=== PATIENT | female | born 1955 | race Caucasian/White ===

== ENCOUNTER 2022-11-02 13:38 | Outpatient (AMB) | payer OTHER, SELFPAY ==
--- NOTE | 2022-11-02 14:14 | AM.OFFWIN_ITS ---
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 she is not currently taking any medications for BP. 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 Patient gives history of diabetes hypertension and hypothyroid state. She is recently moved from [facility] a year ago. Has not established her care with a primary care doctor here. Appointment given to her is in May. She noticed her blood pressure to be reasonably elevated. Associated with headaches. Brings her blood pressure log to review. Visited on of the walk-in and was started on metformin. No blood work has been done. [facility] Social History Patient Tobacco Use Status: Never used Tobacco Physical Exam Vital Signs: Last Vital Signs Pulse 90 11/02/22 14:18 BP 158/80 H 11/02/22 14:18 Pulse Ox 98 11/02/22 14:18 Oxygen Delivery Method Room Air 11/02/22 14:18 Const General: cooperative and healthy appearing Nutritional Appearance: well nourished Orientation/consciousness: patient oriented x3 Limitations: no limitations HEENT Head: Yes normal to inspection Eyes General: appearance normal, both eyes and all related structures Neck Neck: Yes normal visual inspection Chest Chest palpation & inspection: normal palpation of entire chest wall Resp Effort & Inspection: normal respiratory effort Neuro General: patient oriented x3 Assessment & Plan Assessment & Plan (1) Essential hypertension: Code(s): I10 - Essential (primary) hypertension Plan: Lisinopril 10 mg a day has been started. Patient was advised to keep maintaining a blood pressure log. I encouraged her to see her doctor in [place]. Patient declined and wants to be seen by a provider here. Earliest appointment available is in May 2023. (2) Diabetes mellitus: Code(s): E11.9 - Type 2 diabetes mellitus without complications Plan: Blood work has been ordered. Will call with results. Orders: Orders Basic Metabolic Panel Today E11.9 - Type 2 diabetes mellitus without complications, I10 - Essential (primary) hypertension Complete Blood Count no Diff Today E11.9 - Type 2 diabetes mellitus without complications, I10 - Essential (primary) hypertension Lipid Panel Today E11.9 - Type 2 diabetes mellitus without complications, I10 - Essential (primary) hypertension Liver Panel Today E11.9 - Type 2 diabetes mellitus without complications, I10 - Essential (primary) hypertension Thyroid Stimulating Hormone Today E11.9 - Type 2 diabetes mellitus without complications, I10 - Essential (primary) hypertension Hemoglobin A1c Today E11.9 - Type 2 diabetes mellitus without complications Medications: New lisinopril 10 mg PO DAILY 90 tabs 1RF Coding Level of Care Code Est Pt Level 4 (58438) Diagnoses Essential hypertension I10 Diabetes mellitus E11.9
[2022-11-02 14:18] VITALS: BP 158/80; PULSE 90; O2SAT 98
== END 2022-11-02 16:31 | disposition home or self-care (01) ==
PROVIDERS: PCP Internal Medicine; Visit Provider Internal Medicine
DX: I10 Essential (primary) hypertension (principal); E11.9 Type 2 diabetes mellitus without complications
CPT/HCPCS: 99214

== ENCOUNTER 2022-11-03 07:35 | Outpatient (REF) | payer OTHER, SELFPAY ==
[2022-11-03 11:49] LABS: Hematocrit 34.2 % (37.0-47.0); Hemoglobin 11.2 g/dl (12.0-16.0); Mean Corpuscular HGB Conc 32.7 g/dl (31.0-35.0); Mean Corpuscular Hemoglobin 29.2 pg (27.0-33.0); Mean Corpuscular Volume 89.3 fL (80.0-98.0); Mean Platelet Volume 10.2 fL (9.4-12.3); Platelet Count 292 X10*3/uL (160-400); Red Blood Count 3.83 X10*6/uL (4.20-5.50); Red Cell Distribution Width 12.5 % (11.0-16.0); White Blood Count 7.1 X10*3/uL (4.8-10.8)
[2022-11-03 12:01] LABS: Estimated Average Glucose 151 mg/dL; Hemoglobin A1c % 6.9 % (<6.0)
[2022-11-03 12:27] LABS: Alanine Aminotransferase 9 U/L (0-31); Alkaline Phosphatase 58 U/L (39-117); Anion Gap 10 (12-20); Aspartate Amino Transferase 13 U/L (5-31); Bilirubin Direct 0.3 mg/dL (0.0-0.5); Blood Urea Nitrogen 11 mg/dL (9-16); Calcium 9.7 mg/dL (8.4-10.2); Carbon Dioxide 28 mmol/L (22-29); Chloride 107 mmol/L (96-108); Cholesterol 186 mg/dL (<200); Estimated Glomerular Filt Rate > 60; Glucose Random 108 mg/dL (60-115); HDL Cholesterol 44 mg/dL (>40); LDL Cholesterol Calculated 113 mg/dL (<100); Potassium 4.2 mmol/L (3.3-5.1); Sodium 141 mmol/L (135-145); Total Protein 7.5 g/dL (6.5-8.0); Triglycerides 149 mg/dL (<150)
[2022-11-03 12:29] LABS: Thyroid Stimulating Hormone 3.67 uIU/mL (0.32-4.0)
== END 2022-11-03 07:36 | disposition home or self-care (01) ==
LOC: HO.HMGCLDS 07:35
PROVIDERS: PCP Internal Medicine; Visit Provider Internal Medicine
DX: E11.9 Type 2 diabetes mellitus without complications (principal); I10 Essential (primary) hypertension
CPT/HCPCS: 36415; 80048; 80061; 80076; 83036; 84443; 85027

== ENCOUNTER 2022-12-22 09:13 | Outpatient (AMB) | payer OTHER, SELFPAY ==
--- NOTE | 2022-12-22 09:18 | A.OFFPC_ITS ---
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: Yes Metal Model Builder Name: aMteus ([id number]) Accompanied by: Daughter Allergies No Known Allergies Allergy (Verified 12/22/22 09:43) Medication List - Last Reconciled 12/22/22 by Libby Zhao CNP levothyroxine 25 mcg PO DAILY lisinopril 10 mg PO DAILY metformin 500 mg PO DAILY metformin 1,000 mg PO DAILY Tobacco use date assessed: 12/22/22 Fall risk assessment: No Falls in past year Last assessed Fall Risk: 12/22/22 Dental Screening Dental Screen Date: 12/22/22 Did you have a dental visit in the last 12 months?: No Did you have a dental problem in the last 6 months where you did not have access to dental care?: No Was dental information given to patient?: Yes HPI HPI Comments 2 History of Present Illness Details 67-year-old Portuguese-speaking female pres ents to establish care. Patient has PMH significant for diabetes, hypertension, hypothyroidism, GERD, h/o Ellsworth esophagus, and arthritis to both hands and upper back with intermittent pain. She is on levothyroxine, lisinopril, and metformin. She admits to taking her medications as prescribed. She notes that she she has an old prescription for Meloxicam 15mg, from [facility], which she takes daily as needed for hands and upper back pain. She requests a refill of the medication as it is almost out. She was evaluated at the [facility] walk-in clinic in October. Routine labs and A1c were ordered. Her A1c was 6.9% She recently moved from [facility] to [facility] a year ago and this her first time establishing care with a primary care provider in the [facility]. She denies acute symptoms at this time. [facility] Medical History (Updated 12/22/22 @ 10:25 by Libby Zhao CNP) Arthritis Arteriosclerosis Ellsworth esophagus Acid reflux Thyroid disease High blood pressure Surgical History (Updated 12/22/22 @ 09:53 by Trish Burton MA) No pertinent past surgical history Family History (Updated 12/22/22 @ 09:52 by Trish Burton MA) Mother Diabetes Father Asthma Family/Other Diabetes Thyroid disease Social History Housing: Apartment Patient Tobacco Use Status: Former Tobacco user e-Cigarette/Vaping Use: Never Used service: No Current occupational status: unemployed Cognitive needs: No Hearing needs: No Vision needs: No Questionnaire PHQ-9 Over the last 2 weeks, how often have you been bothered by any of the following problems? 1. Little interest or pleasure in doing things: not at all 2. Feeling down, depressed, or hopeless: not at all 3. Trouble falling or staying asleep, or sleeping too much: not at all 4. Feeling tired or having little energy: not at all 5. Poor appetite or overeating: not at all 6. Feeling bad about yourself - or that you are a failure or have let yourself or your family down: not at all 7. Trouble concentrating on things, such as reading the newspaper or watching television: not at all 8. Moving or speaking so slowly that other people could have noticed. Or the opposite - being so fidgety or restless that you have been moving around a lot more than usual: not at all 9. Thoughts that you would be better off or of hurting yourself in some way: not at all Total score: 0 Depression Screening Interpretation: Negative Depression Screening Done: Yes Source: Developed by Drs. Dean Rojo, Conchita Coleman, Tyrone Colin and colleagues, with an educational colt from [employer]. Thrive Questionnaire Date Thrive assessed: 12/22/22 I am a: Patient What is your living situation today?: I have a steady place to live Within the past 12 months, did the food you bought not last and you didn't have the money to get more?: Never true Within the past 12 months, did you worry whether your food would run out before you got money to buy more?: Never true Do you have trouble paying for medicines?: Yes Do you have trouble getting transportation to medical appointments?: No Do you have trouble paying your heating and electricity bill?: No Do you have trouble taking care of your child, family member or friend?: No Do you have trouble with day-to-day activities such as bathing, preparing meals, shopping, managing finances, etc.?: No Are you currently unemployed and looking for a job?: Yes Are you interested in more education?: Yes Please select the resources that you would like help with: Paying for medicine, Job search/training and Education Currently or been in a relationship where the following occur: no concerns reported AUDIT C Alcohol Use Questionnaire (AUDIT-C) 1. How often do you have a drink containing alcohol?: Never 3. How often do you have six or more drinks on one occasion?: Never Total Score: 0 SANTANA-7 AMB Questionnaire SANTANA-7 Date SANTANA - 7 assessed: 12/22/22 Feeling nervous, anxious, or on edge: 0 = Not at all Not being able to stop or control worryin = Not at all Worrying too much about different things: 0 = Not at all Trouble relaxin = Not at all Being so restless that it is hard to sit still: 0 = Not at all Becoming easily annoyed or irritable: 1 = Several days Feeling afraid as if something awful might happen: 0 = Not at all Total SANTANA-7 score (0-4 normal; 5-9 mild; 10-14 moderate; 15-21 severe): 1 Source: Developed by Drs. Dean Rojo, Conchita Coleman, Tyrone Colin and colleagues, with an educational colt from [employer]. Review of Systems Const Details: Denies chills, Denies fatigue, Denies fever(s), Denies headache(s) and Denies weakness HEENT Denies change in vision, Denies dizziness, Denies headache(s), Denies hearing loss, Denies nasal congestion, Denies sinus pain, Denies sinus pressure and Denies sore throat Card Denies chest pain, Denies lightheadedness, Denies dyspnea and Denies other (palpitations) Resp Denies cough, Denies dyspnea and Denies wheezing GI Denies abdominal pain, Denies melena, Denies hematochezia, Denies change in bowel habits, Denies dyspepsia and Denies nausea Denies hematuria and Denies dysuria Musc Denies abnormal gait, Denies myalgias, Denies arthralgias, Denies numbness and Denies tingling Skin/Breast Denies rash, Denies unusual bruising and Denies wounds Neuro Denies abnormal gait, Denies dizziness, Denies headache(s), Denies memory loss, Denies numbness, Denies Sensory deficit (Neuro), Denies tingling and Denies weakness Psych Denies anxiety, Denies depression and Denies memory loss Endo Denies cold intolerance, Denies fatigue, Denies heat intolerance, Denies polydipsia and Denies polyuria Hung/Lymph Denies easy bleeding and Denies easy bruising Aller/Immun Denies wheezing Physical exam (Primary Care) Vital Signs: Last Vital Signs Temp 97.6 F 12/22/22 09:23 Pulse 74 12/22/22 09:23 Resp 12 12/22/22 09:23 BP 134/80 12/22/22 09:23 Pulse Ox 99 12/22/22 09:23 Oxygen Delivery Method Room Air 12/22/22 09:23 BMI result Body Mass Index 27.3 Tobacco/Smoking Status: Tobacco use Status Tobacco use date assessed 12/22/22 12/22/22 09:37 Patient Tobacco Use Status Former Tobacco user 12/22/22 09:37 e-Cigarette/Vaping Use Never Used 12/22/22 09:37 PHQ-9: PHQ-9 Score PHQ-9: Total score 0 12/22/22 14:44 Depression Screening Interpretation: Negative Thrive Assessment: Date of Thrive Assessment Date Thrive assessed 12/22/22 12/22/22 09:37 Currently or been in a relationship where the following occur: no concerns reported Const Other: General: no acute distress, well developed, alert and awake Nutritional Appearance: well nourished Orientation/consciousness: patient oriented x3 HENMT Head: Yes normocephalic and Yes atraumatic Ears: hearing grossly normal bilaterally and TM's normal bilaterally General nose exam: Normal external nose present and Normal nares present Mouth: Normal oral and palatal mucosa present and moist mucous membranes Teeth and gingiva: dentition normal Throat: Yes oropharynx normal Eyes Pupils: Equal, round and reactive pupils present and Pupil accommodation reflex normal EOM: EOMs intact bilaterally Neck Neck: Yes normal visual inspection, Yes no lymphadenopathy and Yes trachea midline Thyroid: Thyroid normal Carotids: no bruits Lymphatic: no lymphadenopathy noted Chest Chest palpation & inspection: normal inspection of the chest Resp Effort & Inspection: normal respiratory effort Auscultation: clear to auscultation bilaterally Cardio Rate: regular rate Rhythm: regular rhythm Heart sounds: S1 normal heart sound present, S2 normal heart sound present, no gallops, no murmurs and no rubs Bruits: no abdominal aortic bruits and no carotid bruits GI Palpation (GI): No Abdominal aortic bruit present, Soft to palpation, nontender, No hepatosplenomegaly present and No Rebound tenderness present Auscultation: normal bowel sounds General: Yes no CVA tenderness Back/Spine/Pelvis Back: no CVA tenderness Cervical Spine: cervical ROM normal and No Cervical spine tenderness Thoracic/Lumbar Spine: thoraco-lumbar ROM normal, No pain with thoraco-lumbar ROM, No thoracic spinal tenderness and No lumbar spinal tenderness Skin General: warm and dry. Normal skin color. Normal skin turgor Lesions: no lesions Rashes: no rashes Trauma: no lacerations or abrasions Wounds: no wounds Nails: normal Neuro General: patient oriented x3, gait normal and CN's II-XI intact bilaterally Cranial nerves: Yes Equal, round and reactive pupils present Cognition (Neuro): normal cognition Gait exam (Neuro): Normal gait present Motor exam (neuro): 5/5 motor strength present throughout Sensory Exam: No Sensory deficit (Neuro) Deep tendon reflexes (DTR's): Right patellar reflex intensity grade: 2+ and Left patellar reflex intensity grade: 2+ Extrem General: Yes normal to inspection, No edema and No calf tenderness Psych Appearance: grossly normal Affect: normal affect Attitude: cooperative Thought process: Normal thought process present Assessment and Plan Assessment & Plan (1) Normal physical examination, routine: Code(s): Z00.00 - Encounter for general adult medical examination without abnormal findings Plan: No significant physical restrictions or limitations noted She had routine blood work done in October. Lab results 1 unremarkable except for slightly elevated LDL, 113. Will also check urinalysis Advised to limit foods high in saturated fat and avoid foods high in trans fat Advised to follow-up in 1 month for diabetes, hypertension, and health maintenance Return sooner with symptoms or concerns Verbalized understanding and agreed with treatment plan Interpretation by a professional seasonal recruiter via electronic tablet. (2) Diabetes mellitus: Code(s): E11.9 - Type 2 diabetes mellitus without complications Plan: A1c was 6.9% in October, within goal of less than 7.0% Continue to take metformin as prescribed ADA diet and routine exercise encouraged Follow-up in 1 month or return sooner with symptoms or concerns Verbalized understanding and agreed with treatment plan. (3) Essential hypertension: Code(s): I10 - Essential (primary) hypertension Plan: Blood pressure is 134/80, slightly above goal of 130/80 Continue current treatment regimen Low-sodium diet encouraged Follow-up in a month Verbalized understanding and agreed with treatment plan. (4) Hypothyroidism: Code(s): E03.9 - Hypothyroidism, unspecified Plan: Recent TSH was normal Continue with current treatment regimen Will continue to monitor Verbalized understanding and agreed with treatment plan. (5) Acid reflux: Code(s): K21.9 - Gastro-esophageal reflux disease without esophagitis Plan: Reports history of acid reflux Omeprazole ordered. Take as prescribed Return with symptoms or concerns Verbalized understanding and agreed with treatment plan. (6) Arthritis: Code(s): M19.90 - Unspecified osteoarthritis, unspecified site Plan: Reports intermittent pain to hands and upper back. No acute symptoms at this time Tylenol ordered. Take as prescribed Return with new or worsening symptoms Verbalized understanding and agreed with treatment plan. 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 Orders: Orders UA CC w/rflx Micro + Cult 12/22/22 Z00.00 - Encounter for general adult medical examination without abnormal findings Medications: New acetaminophen ER (Tylenol 8 Hour) 650 mg PO Q8H PRN 60 tabs 2RF pain omeprazole 20 mg PO DAILY 90 days 90 caps 1RF Coding Level of Care Code New Pt Level 4 (04417) New Pt Prev Care >65yr (39001) Diagnoses Normal physical examination, routine Z00.00 Diabetes mellitus E11.9 Essential hypertension I10 Hypothyroidism E03.9 Acid reflux K21.9 Arthritis M19.90 Ellsworth esophagus K22.70
[2022-12-22 09:23] VITALS: BP 134/80; PULSE 74; RESP 12; TEMP 36.4; O2SAT 99; BMI 27.3
== END 2022-12-22 10:21 | disposition home or self-care (01) ==
PROVIDERS: PCP Internal Medicine; Visit Provider Nurse Practitioner Family
DX: Z00.00 Encounter for general adult medical examination without abnormal findings (principal); E11.9 Type 2 diabetes mellitus without complications; I10 Essential (primary) hypertension; E03.9 Hypothyroidism, unspecified; K21.9 Gastro-esophageal reflux disease without esophagitis; M19.90 Unspecified osteoarthritis, unspecified site; K22.70 Barrett's esophagus without dysplasia
CPT/HCPCS: 99204; 99387

== ENCOUNTER 2023-01-19 10:47 | Outpatient (AMB) | payer OTHER, SELFPAY ==
[2023-01-19 10:50] VITALS: BP 132/60; PULSE 82; RESP 13; O2SAT 96; BMI 27.8
--- NOTE | 2023-01-19 10:50 | MHC.PC.OV ---
Vital Signs 01/19/23 10:50 Height 5 ft 1 in Weight 147 lb BMI 27.8 BP 132/60 Blood Pressure Location Rt brachial Position Sitting Respiration 13 Pulse 82 Pulse Source Pulse Oximeter Pulse Oximetry (%) 96 Oxygen Delivery Method Room Air Intake Visit Reasons: 1 month DM, HTN, health maintenance Intake Note: Patient is here to follow up on her diabetic care, hypertension and health maintenance. Patient's last A1C was completed on 11/03/22 with a result of 6.9%. Patient has an R ear pain for ~2 months. Patient reports there is an echo in her ear and sometimes feel blocked with water. Patient is requesting a [facility] referral for barretts esophagus. Per patient's insurance she will need Levothyroxine prescribed in tablets not capsules. Patient reports she needs refills for all of her medications. Certified Medical Transcriptionist Required: Yes Certified Medical Transcriptionist Name: [id number] Accompanied by: Daughter Allergies No Known Allergies Allergy (Verified 01/19/23 11:18) Medication List - Last Reconciled 01/19/23 by Libby Zhao CNP acetaminophen ER (Tylenol 8 Hour) 650 mg PO Q8H PRN levothyroxine 25 mcg PO DAILY 90 days lisinopril 10 mg PO DAILY metformin 500 mg PO DAILY 90 days metformin 1,000 mg PO DAILY 90 days omeprazole 20 mg PO DAILY 90 days Tobacco use date assessed: 12/22/22 HPI HPI Comments History of Present Illness Details 67-year-old female Frisian-speaking, accompanied by her daughter, presents for diabetes, hypertension and health maintenance follow-up. Her last office visit was almost a month ago. A complete physical exam was performed. She admits to taking her medications as prescribed. Her last A1c was 6.9 in 11/03/2022. Her next A1c is due in 2 weeks. She reports pain in her right ear which has been ongoing for the past 2 months. She notes that the ear feels clogged and produces an echo sound with chewing. She notes that she had normal dental evaluation by the dentist a week ago. She denies fever, chills, body aches, fatigue, or weakness. She notes that she had an eye exam with Dr. Caballero, Ophthalmology, at [facility] in [place], yesterday and that she was informed she had cataract in both eyes that requires surgery. She requests a referral to Gastroenterology for history of Ellsworth esophagus. No acute symptoms at this time. She notes that her last colonoscopy was more than 4 years ago (less than 10 years ago) in [facility]: normal She notes that her last pap smear was over 5 years ago in [facility]: normal She states that her last mammogram was over 5 years ago in [facility]: normal She notes that she has never had a bone density scan She states that she has never had the PNA vaccines She states she has never had the shingrix vaccines [facility] Medical History (Updated 01/19/23 @ 12:11 by Libby Zhao CNP) Arthritis Arteriosclerosis Ellsworth esophagus Acid reflux Thyroid disease High blood pressure Surgical History (Updated 12/22/22 @ 09:53 by Trish Burton MA) No pertinent past surgical history Family History (Updated 12/22/22 @ 09:52 by Trish Burton MA) Mother Diabetes Father Asthma Family/Other Diabetes Thyroid disease Social History Housing: Apartment Patient Tobacco Use Status: Former Tobacco user e-Cigarette/Vaping Use: Never Used service: No Current occupational status: unemployed Cognitive needs: No Hearing needs: No Vision needs: No Questionnaire Thrive Questionnaire Date Thrive assessed: 12/22/22 SANTANA-7 AMB Questionnaire SANTANA-7 Date SANTANA - 7 assessed: 12/22/22 Source: Developed by Drs. Dean Rojo, Conchita Coleman, Tyrone Colin and colleagues, with an educational colt from [employer]. Review of Systems Const Details: Const Denies chills, Denies fatigue, Denies fever(s), Denies headache(s) and Denies weakness ENT Reports as per HPI Card Denies chest pain, Denies lightheadedness, Denies dyspnea and Denies other (Palpitations) Resp Denies cough, Denies dyspnea, Denies wheezing and Denies other ( shortness of breath) GI Denies abdominal pain, Denies melena, Denies hematochezia, Denies change in bowel habits, Denies dyspepsia and Denies nausea Denies hematuria and Denies dysuria Musc Denies abnormal gait, Denies myalgias, Denies arthralgias, Denies numbness and Denies tingling Skin/Breast Denies rash, Denies unusual bruising and Denies wounds Neuro Denies abnormal gait, Denies dizziness, Denies headache(s), Denies memory loss, Denies numbness, Denies Sensory deficit (Neuro), Denies tingling and Denies weakness Psych Denies anxiety, Denies depression, Denies memory loss Endo Denies cold intolerance, Denies fatigue, Denies heat intolerance, Denies polydipsia and Denies polyuria Aller/Immun Denies wheezing Physical exam (Primary Care) Vital Signs: Last Vital Signs Pulse 82 01/19/23 10:50 Resp 13 01/19/23 10:50 BP 132/60 01/19/23 10:50 Pulse Ox 96 01/19/23 10:50 Oxygen Delivery Method Room Air 01/19/23 10:50 BMI result Body Mass Index 27.8 Tobacco/Smoking Status: Tobacco use Status Tobacco use date assessed 12/22/22 01/19/23 10:50 Patient Tobacco Use Status Former Tobacco user 01/19/23 10:50 e-Cigarette/Vaping Use Never Used 01/19/23 10:50 Thrive Assessment: Date of Thrive Assessment Date Thrive assessed 12/22/22 01/19/23 10:50 Const Other: General: no acute distress and well developed Nutritional Appearance: well nourished Orientation/consciousness: patient oriented x3 HENMT Head: Yes normocephalic and Yes atraumatic Eyes General: appearance normal, both eyes and all related structures Pupils: Equal, round and reactive pupils present EOM: EOMs intact bilaterally Resp Effort & Inspection: normal respiratory effort Auscultation: clear to auscultation bilaterally Cardio Rate: regular rate Rhythm: regular rhythm Heart sounds: S1 normal heart sound present, S2 normal heart sound present, no gallops, no murmurs and no rubs GI Palpation (GI): No Abdominal aortic bruit present, Soft to palpation, nontender, No hepatosplenomegaly present and No Rebound tenderness present Auscultation: normal bowel sounds General: Yes no CVA tenderness Back/Spine/Pelvis Back: no CVA tenderness Cervical Spine: cervical ROM normal and No Cervical spine tenderness Thoracic/Lumbar Spine: thoraco-lumbar ROM normal, No pain with thoraco-lumbar ROM, No thoracic spinal tenderness and No lumbar spinal tenderness Extrem General: Yes normal to inspection, No edema and No calf tenderness Skin General: warm and dry. Normal skin color. Normal skin turgor Lesions: no lesions Rashes: no rashes Trauma: no lacerations or abrasions Wounds: no wounds Nails: normal Neuro General: patient oriented x3, gait normal and no focal neuro deficit Cranial nerves: Yes Equal, round and reactive pupils present Cognition (Neuro): normal cognition Gait exam (Neuro): Normal gait present Sensory Exam: No Sensory deficit (Neuro) Psych Appearance: grossly normal Affect: normal affect Attitude: cooperative Thought process: Normal thought process present Assessment and Plan Assessment & Plan (1) Diabetes mellitus: Code(s): E11.9 - Type 2 diabetes mellitus without complications Plan: Her last A1c was 6.9 in 11/03/2022. Her next A1c is due in 2 weeks. Continue with current treatment regimen Will check A1c at her next visit in 6 weeks She notes she was evaluated by Ophthalmology yesterday and was diagnosed with cataract of both eyes the requires surgery. The MA called the ophthalmology office and was informed that only cataract exam was performed and that the patient was referred by her music specialist who may have performed diabetic retinal exam. Will obtain records and review. Will make referral for diabetic retinal exam if not performed. Will also check urine microalbumin/creatinine ratio Return with symptoms or concerns Verbalized understanding and agreed with treatment plan. (2) Essential hypertension: Code(s): I10 - Essential (primary) hypertension Plan: Blood pressure is 132/60, slightly above goal of less than 130/80 Continue with current treatment regimen Low-sodium diet encouraged Will continue to monitor Follow-up in 6 weeks Verbalized understanding and agreed with treatment plan. (3) Elevated LDL cholesterol level: Code(s): E78.00 - Pure hypercholesterolemia, unspecified Plan: Recent LDL in October was 113, above goal of less than 70 Her 10 year risk of ASCVD is 30.3% Rosuvastatin ordered. Take as prescribed Advised to limit foods high in saturated fat and avoid foods high in trans fat Routine exercise encouraged Will recheck lipid levels in 6 weeks. Advised to fast for 10-12 hours (may drink water only) and get blood work done 2-3 days before her next visit. Follow-up in 6 weeks Verbalized understanding and agreed with treatment plan. 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 Record not available Mammogram ordered (6) Colon cancer screening: Code(s): Z12.11 - Encounter for screening for malignant neoplasm of colon Plan: She notes that her last colonoscopy was more than 4 years ago (less than 10 years ago) in [facility]: normal. Record not available Referred to [facility] Gastroenterology for colonoscopy (7) Age-related osteoporosis without current pathological fracture: Code(s): M81.0 - Age-related osteoporosis without current pathological fracture Plan: She notes that she has never had a bone density scan DEXA scan ordered (8) Pap smear for cervical cancer screening: Code(s): Z12.4 - Encounter for screening for malignant neoplasm of cervix Plan: She notes that her last pap smear was over 5 years ago in [facility]: normal. Record not available Referred to [facility] missing persons investigator (9) Vaccine counseling: Code(s): Z71.85 - Encounter for immunization safety counseling Plan: She notes she has never had the Shingrix and pneumonia vaccines Instructed on the importance of vaccination and encouraged to get vaccinated against shingles and pneumonia. She may request these vaccines from the pharmacy Verbalized understanding and agreed with plan. (10) Mild anemia: Code(s): D64.9 - Anemia, unspecified Plan: Recent RBC, and H&H were slightly low, 3.83 and 11.2/34.2 respectively. No evidence of iron, B12, or folate deficiency Will repeat CBC and make changes to her care plan if warranted Verbalized understanding and agreed with the plan. Orders: Orders Lipid Panel 6 Weeks E78.00 - Pure hypercholesterolemia, unspecified XR DEXA axial skeleton Today M81.0 - Age-related osteoporosis without current pathological fracture Microalbumin, Random (w Creat) 6 Weeks E11.9 - Type 2 diabetes mellitus without complications MM screening mammo BI Today Z12.31 - Encounter for screening mammogram for malignant neoplasm of breast Complete Blood Count no Diff Today D64.9 - Anemia, unspecified Referrals Gastroenterology Referral K22.70 - Ellsworth's esophagus without dysplasia, Z12.11 - Encounter for screening for malignant neoplasm of colon [employer] Referral Z12.4 - Encounter for screening for malignant neoplasm of cervix Medications: New levothyroxine 25 mcg PO DAILY 90 tabs 1RF 90 days rosuvastatin 20 mg PO DAILY 30 tabs 3RF 30 days Refilled lisinopril 10 mg PO DAILY 90 tabs 1RF Discontinued levothyroxine Discontinued Reason: Doctor's Order 25 mcg PO DAILY 90 days 90 caps 1RF Coding Level of Care Code Est Pt Level 4 (72329) Diagnoses Diabetes mellitus E11.9 Essential hypertension I10 Elevated LDL cholesterol level E78.00 Ellsworth esophagus K22.70 Breast cancer screening by mammogram Z12.31 Colon cancer screening Z12.11 Age-related osteoporosis without current pathological fracture M81.0 Pap smear for cervical cancer screening Z12.4 Vaccine counseling Z71.85 Mild anemia D64.9
== END 2023-01-19 11:58 | disposition home or self-care (01) ==
PROVIDERS: PCP Nurse Practitioner Family; Visit Provider Nurse Practitioner Family
DX: E11.9 Type 2 diabetes mellitus without complications (principal); I10 Essential (primary) hypertension; E78.00 Pure hypercholesterolemia, unspecified; K22.70 Barrett's esophagus without dysplasia; Z12.31 Encounter for screening mammogram for malignant neoplasm of breast; Z12.11 Encounter for screening for malignant neoplasm of colon; M81.0 Age-related osteoporosis without current pathological fracture; Z12.4 Encounter for screening for malignant neoplasm of cervix; Z71.85 Encounter for immunization safety counseling; D64.9 Anemia, unspecified
CPT/HCPCS: 99214

== ENCOUNTER 2023-02-20 09:05 | Outpatient (REF) | payer OTHER, SELFPAY ==
[2023-02-20 11:41] LABS: Hematocrit 34.5 % (37.0-47.0); Hemoglobin 11.3 g/dl (12.0-16.0); Mean Corpuscular HGB Conc 32.8 g/dl (31.0-35.0); Mean Corpuscular Volume 88.7 fL (80.0-98.0); Platelet Count 257 X10*3/uL (160-400); Red Blood Count 3.89 X10*6/uL (4.20-5.50); Red Cell Distribution Width 12.3 % (11.0-16.0)
[2023-02-20 12:25] LABS: Cholesterol 128 mg/dL (<200); HDL Cholesterol 43 mg/dL (>40); LDL Cholesterol Calculated 59 mg/dL (<100); Triglycerides 132 mg/dL (<150)
[2023-02-20 12:48] LABS: Microalbum/Creatinine Ratio Ur 12.2 ug/mg cr (<30)
== END 2023-02-20 09:06 | disposition home or self-care (01) ==
LOC: HO.WFDLDS 09:05
PROVIDERS: Visit Provider Nurse Practitioner Family
DX: D64.9 Anemia, unspecified (principal); E11.9 Type 2 diabetes mellitus without complications; E78.00 Pure hypercholesterolemia, unspecified
CPT/HCPCS: 36415; 80061; 82043; 82570; 85027

== ENCOUNTER 2023-02-23 11:03 | Outpatient (AMB) | payer OTHER, SELFPAY ==
[2023-02-23 11:08] VITALS: BP 134/78; PULSE 80; RESP 13; TEMP 36.5; O2SAT 99; BMI 27.8
--- NOTE | 2023-02-23 11:08 | MHC.PC.OV ---
Vital Signs 02/23/23 11:08 02/23/23 11:58 Height 5 ft 1 in Weight 147 lb 2 oz BMI 27.8 BP 134/78 130/64 Blood Pressure Location Rt brachial Lt brachial Position Sitting Sitting Respiration 13 Pulse 80 Pulse Source Pulse Oximeter Temp 97.7 F Temp Source Temporal Artery Scan Pulse Oximetry (%) 99 Oxygen Delivery Method Room Air Intake Visit Reasons: Follow up DM, HLD Intake Note: Patient is having problems with right ear. Patient states that she has an itch and when listening it feels like its an echoe. Director Digital Catalogue Required: Yes Director Digital Catalogue Name: Elmo ([id number]) Accompanied by: Daughter Allergies No Known Allergies Allergy (Verified 02/23/23 11:49) Medication List - Last Reconciled 02/23/23 by Libby Zhao CNP acetaminophen ER (Tylenol 8 Hour) 650 mg PO Q8H PRN levothyroxine 25 mcg PO DAILY 90 days lisinopril 10 mg PO DAILY metformin 500 mg PO DAILY 90 days metformin 1,000 mg PO DAILY 90 days omeprazole 20 mg PO DAILY 90 days rosuvastatin 20 mg PO DAILY 30 days Tobacco use date assessed: 12/22/22 Fall risk assessment: No Falls in past year Last assessed Fall Risk: 02/23/23 Dental Screening Dental Screen Date: 02/23/23 Did you have a dental visit in the last 12 months?: Yes Did you have a dental problem in the last 6 months where you did not have access to dental care?: No Was dental information given to patient?: Patient has dentist HPI HPI Comments History of Present Illness Details 68 y/o Serbian speaking female, accompanied by her daughter, presents for diabetes and elevated LDL follow-up She admits to taking her medications as prescribed without adverse reactions She reports echoing in her right ear with every time she chews. She also reports persistent itching in the right ear. She notes that her symptoms have been ongoing for the past 3 months [facility] Medical History Arthritis Arteriosclerosis Ellsworth esophagus Acid reflux Thyroid disease High blood pressure Surgical History No pertinent past surgical history Family History Mother Diabetes Father Asthma Family/Other Diabetes Thyroid disease Social History Housing: Apartment Patient Tobacco Use Status: Former Tobacco user e-Cigarette/Vaping Use: Never Used service: No Current occupational status: unemployed Cognitive needs: No Hearing needs: No Vision needs: No Questionnaire Thrive Questionnaire Date Thrive assessed: 12/22/22 SANTANA-7 AMB Questionnaire SANTANA-7 Date SANTANA - 7 assessed: 12/22/22 Source: Developed by Drs. Dean Rojo, Conchita Coleman, Tyrone Colin and colleagues, with an educational colt from [employer]. Review of Systems Const Details: Const Denies chills, Denies fatigue, Denies fever(s), Denies headache(s) and Denies weakness ENT Reports as per HPI Card Denies chest pain, Denies lightheadedness, Denies dyspnea and Denies other (Palpitations) Resp Denies cough, Denies dyspnea, Denies wheezing and Denies other ( shortness of breath) GI Denies abdominal pain, Denies melena, Denies hematochezia, Denies change in bowel habits, Denies dyspepsia and Denies nausea Denies hematuria and Denies dysuria Musc Denies abnormal gait, Denies myalgias, Denies arthralgias, Denies numbness and Denies tingling Skin/Breast Denies rash, Denies unusual bruising and Denies wounds Neuro Denies abnormal gait, Denies dizziness, Denies headache(s), Denies memory loss, Denies numbness, Denies Sensory deficit (Neuro), Denies tingling and Denies weakness Psych Denies anxiety, Denies depression, Denies memory loss Endo Denies cold intolerance, Denies fatigue, Denies heat intolerance, Denies polydipsia and Denies polyuria Aller/Immun Denies wheezing Physical exam (Primary Care) Vital Signs: Last Vital Signs Temp 97.7 F 02/23/23 11:08 Pulse 80 02/23/23 11:08 Resp 13 02/23/23 11:08 BP 134/78 02/23/23 11:08 Pulse Ox 99 02/23/23 11:08 Oxygen Delivery Method Room Air 02/23/23 11:08 BMI result Body Mass Index 27.8 Tobacco/Smoking Status: Tobacco use Status Tobacco use date assessed 12/22/22 02/23/23 11:09 Patient Tobacco Use Status Former Tobacco user 02/23/23 11:09 e-Cigarette/Vaping Use Never Used 02/23/23 11:09 Thrive Assessment: Date of Thrive Assessment Date Thrive assessed 12/22/22 02/23/23 11:09 Const Other: General: no acute distress and well developed Nutritional Appearance: well nourished Orientation/consciousness: patient oriented x3 HENMT Head is normocephalic Bilateral ear canal and TM are normal Nasal turbinates and oropharynx are pink and moist Sinuses are nontender with palpation No auricular or cervical lymphadenopathy Eyes General: appearance normal, both eyes and all related structures Pupils: Equal, round and reactive pupils present EOM: EOMs intact bilaterally Resp Effort & Inspection: normal respiratory effort Auscultation: clear to auscultation bilaterally Cardio Rate: regular rate Rhythm: regular rhythm Heart sounds: S1 normal heart sound present, S2 normal heart sound present, no gallops, no murmurs and no rubs GI Palpation (GI): No Abdominal aortic bruit present, Soft to palpation, nontender, No hepatosplenomegaly present and No Rebound tenderness present Auscultation: normal bowel sounds General: Yes no CVA tenderness Back/Spine/Pelvis Back: no CVA tenderness Cervical Spine: cervical ROM normal and No Cervical spine tenderness Thoracic/Lumbar Spine: thoraco-lumbar ROM normal, No pain with thoraco-lumbar ROM, No thoracic spinal tenderness and No lumbar spinal tenderness Extrem General: Yes normal to inspection, No edema and No calf tenderness Skin General: warm and dry. Normal skin color. Normal skin turgor Neuro General: patient oriented x3, gait normal and no focal neuro deficit Cranial nerves: Yes Equal, round and reactive pupils present Cognition (Neuro): normal cognition Gait exam (Neuro): Normal gait present Sensory Exam: No Sensory deficit (Neuro) Psych Appearance: grossly normal Affect: normal affect Attitude: cooperative Thought process: Normal thought process present Results AMB Hemoglobin A1c AMB Hemoglobin A1c 7.4 % Last Edit by Trish Burton MA on 02/23/23 11:30 Results Reviewed Results Reviewed: Laboratory Last Values Hgb A1c (Clinic) 7.4 % (4.0-6.0) H 02/23/23 11:29 Assessment and Plan Assessment & Plan (1) Diabetes mellitus: Code(s): E11.9 - Type 2 diabetes mellitus without complications Plan: A1c today is 7.4%, above goal of less than 7.0%. Previous A1c was 6.9% Recent LDL 3 days ago is 59, within goal of less than 70 Recent urine microalbumin/creatinine ratio is normal, 12.2 Last eye exam was last month Metformin increased to 1000 mg twice daily. Take as prescribed ADA diet and routine exercise encouraged Will recheck A1c in 3 months Follow-up in 1 month for hypertension or return sooner with symptoms or concerns Verbalized understanding and agreed with treatment plan Interpretation by professional order entry representative via electronic tablet (2) Essential hypertension: Code(s): I10 - Essential (primary) hypertension Plan: Resting blood pressure is 130/64, slightly above goal of less than 130/80 Will increase lisinopril to 20 mg daily. Take as prescribed Low-sodium diet encouraged Advised to monitor home blood pressure readings, reports BP consistently above 130/80, SBP below 100, DBP below 60, dizziness, or lightheadedness She has an appointment for cataract surgery preop clearance next week. Will monitor BP at the time Follow-up in 1 month Verbalized understanding and agreed with treatment plan (3) Tinnitus, right ear: Code(s): H93.11 - Tinnitus, right ear Plan: Reports 3 months of persistent right ear itching and echoing while chewing Normal right ear canal and TM. No cerumen or overt signs of injury or infection Itching may be related to allergies Zyrtec ordered. Take as prescribed Referred to ENT specialist Return with worsening or new symptoms Verbalized understanding and agreed with treatment plan (4) Elevated LDL cholesterol level: Code(s): E78.00 - Pure hypercholesterolemia, unspecified Plan: Recent LDL 3 days ago is 59, within goal of less than 70 Continue current treatment regimen Advised to limit foods high in saturated fat and avoid foods high trans fat Routine exercise encouraged Will continue to monitor Verbalized understanding and agreed with treatment plan Orders: Orders AMB Hemoglobin A1c Today Z13.9 - Encounter for screening, unspecified Referrals Ear/Nose/Throat Referral H93.11 - Tinnitus, right ear Medications: New lisinopril 20 mg PO DAILY 90 days 90 tabs 1RF cetirizine (All Day Allergy (cetirizine)) 10 mg PO DAILY 30 days 30 tabs 3RF metformin 1,000 mg PO BID 90 days 180 tabs 1RF Discontinued lisinopril Discontinued Reason: Doctor's Order 10 mg PO DAILY 90 tabs 1RF metformin Discontinued Reason: Doctor's Order 500 mg PO DAILY 90 days 90 tabs 1RF metformin Discontinued Reason: Doctor's Order 1,000 mg PO DAILY 90 days 90 tabs 1RF Coding Level of Care Code Est Pt Level 3 (18647) Diagnoses Diabetes mellitus E11.9 Essential hypertension I10 Tinnitus, right ear H93.11 Elevated LDL cholesterol level E78.00
[2023-02-23 11:58] VITALS: BP 130/64
== END 2023-02-23 12:25 | disposition home or self-care (01) ==
PROVIDERS: PCP Nurse Practitioner Family; Visit Provider Nurse Practitioner Family
DX: E11.9 Type 2 diabetes mellitus without complications (principal); I10 Essential (primary) hypertension; H93.11 Tinnitus, right ear; E78.00 Pure hypercholesterolemia, unspecified
CPT/HCPCS: 83036; 99213

== ENCOUNTER 2023-02-27 15:50 | Outpatient (AMB) | payer OTHER, SELFPAY ==
[2023-02-27 15:58] VITALS: BP 134/70; PULSE 61; RESP 13; TEMP 36.4; O2SAT 97; BMI 27.8
--- NOTE | 2023-02-27 15:58 | A.OFFPC_ITS ---
Vital Signs 02/27/23 15:58 Height 5 ft 1 in Weight 147 lb 2 oz BMI 27.8 BP 134/70 Blood Pressure Location Rt brachial Position Sitting Respiration 13 Pulse 61 Pulse Source Pulse Oximeter Temp 97.6 F Temp Source Temporal Artery Scan Pulse Oximetry (%) 97 Oxygen Delivery Method Room Air Intake Visit Reasons: Cataract/03-28 left eye/04-11 right eye Intake Note: Patient would like pre-op notes faxed over to Dr. Caballero @ [facility] on [address] Computer Technology Teacher Required: Yes Computer Technology Teacher Name: Onel ([id number]) Accompanied by: Daughter Allergies No Known Allergies Allergy (Verified 02/27/23 16:21) Medication List - Last Reconciled 02/27/23 by Libby Zhao CNP acetaminophen ER (Tylenol 8 Hour) 650 mg PO Q8H PRN cetirizine (All Day Allergy (cetirizine)) 10 mg PO DAILY 30 days levothyroxine 25 mcg PO DAILY 90 days lisinopril 20 mg PO DAILY 90 days metformin 1,000 mg PO BID 90 days omeprazole 20 mg PO DAILY 90 days rosuvastatin 20 mg PO DAILY 30 days Tobacco use date assessed: 12/22/22 Fall risk assessment: No Falls in past year Last assessed Fall Risk: 02/27/23 Dental Screening Dental Screen Date: 02/27/23 Did you have a dental visit in the last 12 months?: Yes Did you have a dental problem in the last 6 months where you did not have access to dental care?: No Was dental information given to patient?: Patient has dentist HPI HPI Comments History of Present Illness Details 68 y/o Armenian speaking female, accompan ied by her daughter, presents for preop clearance for cataract surgery She has cataract surgery of the left eye schedule for 03/28/2023 and of the right eye scheduled for 04/11/[address] 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 Dean Rojo, Conchita Coleman, Tyrone Colin and colleagues, with an educational colt from [employer]. Review of Systems Const Details: Const Denies chills, Denies fatigue, Denies fever(s), Denies headache(s) and Denies weakness ENT Denies dizziness and Denies headache(s) Card Denies chest pain, Denies lightheadedness, Denies dyspnea and Denies other (Pa lpitations) Resp Denies cough, Denies dyspnea, Denies wheezing and Denies other ( shortness of breath) GI Denies abdominal pain, Denies melena, Denies hematochezia, Denies change in bowel habits, Denies dyspepsia and Denies nausea Denies hematuria and Denies dysuria Musc Denies abnormal gait, Denies myalgias, Denies arthralgias, Denies numbness and Denies tingling Skin/Breast Denies rash, Denies unusual bruising and Denies wounds Neuro Denies abnormal gait, Denies dizziness, Denies headache(s), Denies memory loss, Denies numbness, Denies Sensory deficit (Neuro), Denies tingling and Denies weakness Psych Denies anxiety, Denies depression, Denies memory loss Endo Denies cold intolerance, Denies fatigue, Denies heat intolerance, Denies polydipsia and Denies polyuria Aller/Immun Denies wheezing Physical exam (Primary Care) Tobacco/Smoking Status: Tobacco use Status Tobacco use date assessed 12/22/22 02/23/23 11:09 Patient Tobacco Use Status Former Tobacco user 02/23/23 11:09 e-Cigarette/Vaping Use Never Used 02/23/23 11:09 Thrive Assessment: Date of Thrive Assessment Date Thrive assessed 12/22/22 02/23/23 11:09 Const Other: General: no acute distress and well developed Nutritional Appearance: well nourished Orientation/consciousness: patient oriented x3 HENMT Head: Yes normocephalic and Yes atraumatic Eyes General: appearance normal, both eyes and all related structures Pupils: Equal, round and reactive pupils present EOM: EOMs intact bilaterally Resp Effort & Inspection: normal respiratory effort Auscultation: clear to auscultation bilaterally Cardio Rate: regular rate Rhythm: regular rhythm Heart sounds: S1 normal heart sound present, S2 normal heart sound present, no gallops, no murmurs and no rubs GI Palpation (GI): No Abdominal aortic bruit present, Soft to palpation, nontender, No hepatosplenomegaly present and No Rebound tenderness present Auscultation: normal bowel sounds General: Yes no CVA tenderness Back/Spine/Pelvis Back: no CVA tenderness Cervical Spine: cervical ROM normal and No Cervical spine tenderness Thoracic/Lumbar Spine: thoraco-lumbar ROM normal, No pain with thoraco-lumbar ROM, No thoracic spinal tenderness and No lumbar spinal tenderness Extrem General: Yes normal to inspection, No edema and No calf tenderness Skin General: warm and dry. Normal skin color. Normal skin turgor Neuro General: patient oriented x3, gait normal and no focal neuro deficit Cranial nerves: Yes Equal, round and reactive pupils present Cognition (Neuro): normal cognition Gait exam (Neuro): Normal gait present Sensory Exam: No Sensory deficit (Neuro) Psych Appearance: grossly normal Affect: normal affect Attitude: cooperative Thought process: Normal thought process present Assessment and Plan Assessment & Plan (1) Preoperative clearance: Code(s): Z01.818 - Encounter for other preprocedural examination Plan: No acute symptoms at this time Physical exam is benign No focal neuro deficit Recent lab results are benign Lung sounds clear bilaterally. Heart regular rate and rhythm Patient is medically stable at this time and has no contraindications for cataract surgery Interpretation by a professional sole layer hand via electronic tablet (2) Mild anemia: Code(s): D64.9 - Anemia, unspecified Plan: Recent blood work is unrevealing except for slightly low RBC and H&H, 3.89 and 11.3/34.5 respectively Will check iron profile, ferritin level, B12/folate. Advised to get blood work done at her earliest convenience Will make changes as needed Verbalized understanding and agreed with the plan Orders: Orders Ferritin Today D64.9 - Anemia, unspecified, Z01.818 - Encounter for other preprocedural examination IRON PROFILE Today D64.9 - Anemia, unspecified Vitamin B12 and Folate Today D64.9 - Anemia, unspecified Coding Level of Care Code Est Pt Level 3 (97100) Diagnoses Preoperative clearance Z01.818 Mild anemia D64.9
== END 2023-02-27 16:31 | disposition home or self-care (01) ==
PROVIDERS: PCP Nurse Practitioner Family; Visit Provider Nurse Practitioner Family
DX: Z01.818 Encounter for other preprocedural examination (principal); D64.9 Anemia, unspecified
CPT/HCPCS: 99213

== ENCOUNTER 2023-03-21 10:03 | Outpatient (REF) | payer OTHER, SELFPAY ==
--- NOTE | ~2023-03-21 | MM_ITS ---
EXAMINATION: BONE DENSITOMETRY CLINICAL INDICATION: Age-related osteoporosis without current pathological fracture. COMPARISON: This is the patient's baseline examination. TECHNIQUE: Using a [employer] DXA System (software version: 13.1) manufactured by [employer], dual-energy x-ray absorptiometry was performed of the lumbar spine and left hip. The images are of good technical quality. Summary results are attached. FINDINGS: LEFT FEMUR, NECK: BMD 0.784 g/cm2, Z-score -0.3, T-score -1.8, osteopenia. LEFT FEMUR, TOTAL: BMD 0.812 g/cm2, Z-score -0.3, T-score -1.5, osteopenia. AP SPINE L1-L4: BMD 0.993 g/cm2, Z-score 0.0, T-score -1.6, osteopenia. IDENTIFIED RISK FACTORS: Menopause. HISTORY OF FRACTURE: None listed. MEDICATIONS: None listed. MM/XR DEXA axial skeleton IMPRESSION: 1. DIAGNOSIS: Osteopenia based on the lowest T-score value of -1.8 in the femoral neck applying World Health Organization criteria. 2. 10-YEAR FRACTURE RISK PREDICTION, FRAX: Major osteoporotic fracture (clinical spine, forearm, hip or shoulder) 5.8%. Hip fracture 0.9%. 3. Treatment Recommendations: NOF guidelines recommend consideration for treatment in postmenopausal women and men age 50 and older presenting with the following: -A hip or vertebral (clinical or morphometric) fracture. -T-score less than or equal to -2.5 at the femoral neck or spine after appropriate evaluation to exclude secondary causes. -Low bone mass at the hip or spine and a 10-year fracture probability by FRAX of greater than or equal to 3% for hip fracture or greater than or equal to 20% for major osteoporotic fracture based on the [place] adapted WHO algorithm. 4. Other Recommendations: All treatment decisions require clinical judgment and consideration of individual patient factors, including patient preferences, comorbidities, previous drug use, risk factors not captured in the FRAX model (e.g. frailty, falls, vitamin D deficiency, increased bone turnover, interval significant decline in bone density) and possible under or overestimation of fracture risk by FRAX. Additional medical evaluation for secondary cause of low bone mineral density may be appropriate. FUTURE SCAN RECOMMENDATION: People with diagnosed cases of osteoporosis or at high risk for fracture should have regular bone mineral density tests. For patients eligible for Medicare, routine testing is allowed once every 2 years. The testing frequency can be increased to one year for patients who have rapidly progressing disease, those who are receiving or discontinuing medical therapy to restore bone mass, or have additional risk factors.
--- NOTE | ~2023-03-21 | MM_ITS ---
EXAMINATION: MM SCREENING DIGITAL BREAST TOMOSYNTHESIS, BILATERAL CLINICAL INFORMATION: Screening. Asymptomatic. COMPARISON: Mammography: There are no prior studies for comparison. TECHNIQUE: Digital breast tomosynthesis is performed in both the craniocaudal and mediolateral oblique views along with computer-aided detection (CAD). Synthesized 2D images are generated from the tomosynthesis. FINDINGS: There are scattered areas of fibroglandular density (ACR BI-RADS breast composition Category b). There are no significant masses, abnormal calcifications, or other abnormalities. MM/MM tomosynthesis screening BI IMPRESSION: No mammographic evidence of malignancy. ASSESSMENT: BI-RADS BI-RADS 1 - Negative RECOMMENDATION: Routine annual mammography screening. 1 year F/U This examination should not preclude the clinical evaluation of a suspicious palpable abnormality. This patient's information was entered into a reminder system with a target due date for their next mammogram.
== END 2023-03-21 10:04 | disposition home or self-care (01) ==
LOC: HO.MAMMO 10:03
PROVIDERS: Visit Provider Nurse Practitioner Family
DX: Z12.31 Encounter for screening mammogram for malignant neoplasm of breast (principal); Z13.820 Encounter for screening for osteoporosis; M81.0 Age-related osteoporosis without current pathological fracture; Z78.0 Asymptomatic menopausal state
CPT/HCPCS: 77063; 77067; 77080

== ENCOUNTER → 2023-03-21 11:00 | Outpatient (BNV) | payer OTHER, SELFPAY | PROVIDERS: Visit Provider Radiology Diagnostic Radiology | DX: Z12.31 Encounter for screening mammogram for malignant neoplasm of breast (principal) | CPT/HCPCS: 77063; 77067 ==

== ENCOUNTER 2023-03-22 09:38 | Outpatient (REF) | payer OTHER, SELFPAY ==
[2023-03-22 12:20] LABS: Iron 74 mcg/dL (30-160); Percent Iron Saturation 26 % (15-50); Total Iron Binding Capacity 284 mcg/dL (228-428); Unsaturated Iron Binding 210 ug/dL
[2023-03-22 12:22] LABS: Ferritin 114 ng/mL (10-250)
[2023-03-22 12:27] LABS: Folate 13.5 ng/mL (> or = 4.0); Vitamin B12 611 pg/mL (200-900)
== END 2023-03-22 09:39 | disposition home or self-care (01) ==
LOC: HO.WFDLDS 09:38
PROVIDERS: Visit Provider Nurse Practitioner Family
DX: Z01.818 Encounter for other preprocedural examination (principal); D64.9 Anemia, unspecified
CPT/HCPCS: 36415; 82607; 82728; 82746; 83540

== ENCOUNTER 2023-03-31 14:13 | Outpatient (AMB) | payer OTHER, SELFPAY ==
--- NOTE | 2023-03-31 14:40 | A.OFFPC_ITS ---
Vital Signs 03/31/23 14:41 Height 5 ft 1 in Weight 149 lb 8 oz BMI 28.2 BP 124/68 Blood Pressure Location Rt brachial Position Sitting Respiration 13 Pulse 69 Pulse Source Pulse Oximeter Temp 97.6 F Temp Source Temporal Artery Scan Pulse Oximetry (%) 99 Oxygen Delivery Method Room Air Intake Visit Reasons: f/u HTN Intake Note: Patient would like referral for ENT changed to [facility] instead. Hardening Machine Operator Helper Required: Yes Hardening Machine Operator Helper Name: Nelson ([id number]) Accompanied by: Daughter Allergies No Known Allergies Allergy (Verified 03/31/23 15:09) Medication List - Last Reconciled 03/31/23 by Libby Zhao CNP acetaminophen ER (Tylenol 8 Hour) 650 mg PO Q8H PRN cetirizine (All Day Allergy (cetirizine)) 10 mg PO DAILY 30 days levothyroxine 25 mcg PO DAILY 90 days lisinopril 20 mg PO DAILY 90 days metformin 1,000 mg PO BID 90 days omeprazole 20 mg PO DAILY 90 days rosuvastatin 20 mg PO DAILY 30 days Tobacco use date assessed: 03/31/23 Fall risk assessment: No Falls in past year Last assessed Fall Risk: 03/31/23 Dental Screening Dental Screen Date: 03/31/23 Did you have a dental visit in the last 12 months?: Yes Did you have a dental problem in the last 6 months where you did not have access to dental care?: No Was dental information given to patient?: Patient has dentist HPI HPI Comments History of Present Illness Details 68 y/o Yoruba speaking female, accompan ied by her daughter, presents for hypertension follow-up She admits to taking her medications as prescribed without adverse reactions She was referred to [facility] for persistent right itching and echoing with chewing. 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 Acid reflux Thyroid disease High blood pressure Surgical History (Updated 03/31/23 @ 14:56 by Trish Burton MA) H/O cataract removal with insertion of prosthetic lens No pertinent past surgical history Family History Mother Diabetes Father Asthma Family/Other Diabetes Thyroid disease Social History Housing: Apartment Patient Tobacco Use Status: Former Tobacco user e-Cigarette/Vaping Use: Never Used service: No Current occupational status: unemployed Cognitive needs: No Hearing needs: Yes Vision needs: No Questionnaire Thrive Questionnaire Date Thrive assessed: 12/22/22 SANTANA-7 AMB Questionnaire SANTANA-7 Date SANTANA - 7 assessed: 12/22/22 Source: Developed by Drs. Dean Rojo, Conchita Coleman, Tyrone Colin and colleagues, with an educational colt from [employer]. Review of Systems Const Details: Const Denies chills, Denies fatigue, Denies fever(s), Denies headache(s) and Denies weakness ENT Denies dizziness and Denies headache(s) Card Denies chest pain, Denies lightheadedness, Denies dyspnea and Denies other (Palpitations) Resp Denies cough, Denies dyspnea, Denies wheezing and Denies other ( shortness of breath) GI Denies abdominal pain, Denies melena, Denies hematochezia, Denies change in bowel habits, Denies dyspepsia and Denies nausea Denies hematuria and Denies dysuria Musc Denies abnormal gait, Denies myalgias, Denies arthralgias, Denies numbness and Denies tingling Skin/Breast Denies rash, Denies unusual bruising and Denies wounds Neuro Denies abnormal gait, Denies dizziness, Denies headache(s), Denies memory loss, Denies numbness, Denies Sensory deficit (Neuro), Denies tingling and Denies weakness Psych Denies anxiety, Denies depression, Denies memory loss Endo Denies cold intolerance, Denies fatigue, Denies heat intolerance, Denies polydipsia and Denies polyuria Aller/Immun Denies wheezing Physical exam (Primary Care) Vital Signs: Last Vital Signs Temp 97.6 F 03/31/23 14:41 Pulse 69 03/31/23 14:41 Resp 13 03/31/23 14:41 BP 124/68 03/31/23 14:41 Pulse Ox 99 03/31/23 14:41 Oxygen Delivery Method Room Air 03/31/23 14:41 BMI result Body Mass Index 28.2 Tobacco/Smoking Status: Tobacco use Status Tobacco use date assessed 03/31/23 03/31/23 14:53 Patient Tobacco Use Status Former Tobacco user 03/31/23 14:53 e-Cigarette/Vaping Use Never Used 03/31/23 14:53 Thrive Assessment: Date of Thrive Assessment Date Thrive assessed 12/22/22 03/31/23 14:53 Const Other: General: no acute distress and well developed Nutritional Appearance: well nourished Orientation/consciousness: patient oriented x3 HENMT Head: Yes normocephalic and Yes atraumatic Eyes General: appearance normal, both eyes and all related structures Pupils: Equal, round and reactive pupils present EOM: EOMs intact bilaterally Resp Effort & Inspection: normal respiratory effort Auscultation: clear to auscultation bilaterally Cardio Rate: regular rate Rhythm: regular rhythm Heart sounds: S1 normal heart sound present, S2 normal heart sound present, no gallops, no murmurs and no rubs GI Palpation (GI): No Abdominal aortic bruit present, Soft to palpation, nontender, No hepatosplenomegaly present and No Rebound tenderness present Auscultation: normal bowel sounds General: Yes no CVA tenderness Back/Spine/Pelvis Back: no CVA tenderness Cervical Spine: cervical ROM normal and No Cervical spine tenderness Thoracic/Lumbar Spine: thoraco-lumbar ROM normal, No pain with thoraco-lumbar ROM, No thoracic spinal tenderness and No lumbar spinal tenderness Extrem General: Yes normal to inspection, No edema and No calf tenderness Skin General: warm and dry. Normal skin color. Normal skin turgor Lesions: no lesions Rashes: no rashes Trauma: no lacerations or abrasions Wounds: no wounds Nails: normal Neuro General: patient oriented x3, gait normal and no focal neuro deficit Cranial nerves: Yes Equal, round and reactive pupils present Cognition (Neuro): normal cognition Gait exam (Neuro): Normal gait present Sensory Exam: No Sensory deficit (Neuro) Psych Appearance: grossly normal Affect: normal affect Attitude: cooperative Thought process: Normal thought process present Assessment and Plan Assessment & Plan (1) Essential hypertension: Code(s): I10 - Essential (primary) hypertension Plan: Blood pressure is 124/68, within goal of less than 130/70 Continue current tx Low sodium diet encouraged Follow up in 2 months for DM and HTN or return sooner with symptoms or concerns Verbalized understanding and agreed with the plan Referred to [facility] as requested Interpretation by a professional educational sign language interpreter via electronic tablet (2) Osteopenia after menopause: Code(s): M85.80 - Other specified disorders of bone density and structure, unspecified site; Z78.0 - Asymptomatic menopausal state Plan: Recent labs and DEXA scan reviewed with the patient Normal iron profile, vitamin B12, and folate levels DEXA scan revealed osteopenia Vitamin D3 2000 units ordered. Take as prescribed Will do a bone density scan every 2 years Verbalized understanding and agreed with treatment plan Medications: New cholecalciferol (vitamin D3) 50 mcg PO DAILY 90 tabs 4RF 90 days Changed From rosuvastatin 20 mg PO DAILY 30 days 30 tabs 3RF To rosuvastatin 20 mg PO DAILY 90 days 90 tabs 1RF Coding Level of Care Code Est Pt Level 4 (70048) Diagnoses Essential hypertension I10 Osteopenia after menopause M85.80; Z78.0
[2023-03-31 14:41] VITALS: BP 124/68; PULSE 69; RESP 13; TEMP 36.4; O2SAT 99; BMI 28.2
== END 2023-03-31 15:25 | disposition home or self-care (01) ==
PROVIDERS: PCP Nurse Practitioner Family; Visit Provider Nurse Practitioner Family
DX: I10 Essential (primary) hypertension (principal); M85.80 Other specified disorders of bone density and structure, unspecified site; Z78.0 Asymptomatic menopausal state
CPT/HCPCS: 99214

== ENCOUNTER 2023-04-05 13:51 | Outpatient (AMB) | payer OTHER, SELFPAY ==
--- NOTE | 2023-04-05 13:56 | MHC.OFFVIS ---
Intake Vital Signs 04/05/23 14:01 Height 5 ft 1 in Weight 147 lb 11.355 oz BMI 27.9 BP 138/62 Blood Pressure Location Lt brachial Position Sitting Pulse 89 Intake Visit Reasons: hx of Barretts esophagus/ colo screen Intake Note: Priyanka presents in the office as a new patient for hx of barretts. CC: She states that she is having lots of acid. She has hx of barretts esophagus. This is just a routine check up. Dielectric Tester Required: Yes Dielectric Tester Name: [id number] key Allergies No Known Allergies Allergy (Verified 04/05/23 14:05) HPI hx of Barretts esophagus/ colo screen HPI Details 68 year old? female with past medical history of osteopenia, hyperlipidemia, hypothyroidism, arthritis, diabetes, hypertension is here today for pre colonoscopy screening.? Patient was sent to us by her PCP.?? Patient reports that she had a colonoscopy and upper endoscopy in the past. Was diagnosed with Ellsworth's esophagus and was on treatment. Just recently patient was seen by her PCP and was placed on omeprazole for acid reflux. Patient reports occasional dyspepsia without dysphagia or odynophagia. Patient feels like the omeprazole has not been very helpful. In the past patient states that she was on Nexium and was doing well. Denies history of difficulty with sedation or anesthesia in the past.? Negative for history of sleep apnea.? Denies any history of cardiac, renal, pulmonary, or hepatic disease.?? No history of infectious? diseases like hepatitis A, B, C, HIV or tuberculosis.? Patient is not on any anticoagulation therapy. [facility] Medical History (Updated 04/05/23 @ 14:44 by Phuong Penning[facility]) Arthritis Arteriosclerosis Ellsworth esophagus Acid reflux Thyroid disease High blood pressure Surgical History (Updated 04/05/23 @ 14:05 by NARCISO Cassidy) Hx of colonoscopy History of esophagogastroduodenoscopy (EGD) H/O cataract removal with insertion of prosthetic lens No pertinent past surgical history Family History Mother Diabetes Father Asthma Family/Other Diabetes Thyroid disease Social History Housing: Apartment Patient Tobacco Use Status: Former Tobacco user e-Cigarette/Vaping Use: Never Used service: No Current occupational status: unemployed Cognitive needs: No Hearing needs: Yes Vision needs: No Review of Systems Const Denies weight gain and Denies weight loss ENT Reports no additional complaints, Denies dysphagia and Denies odynophagia Card Reports no additional complaints Resp Reports no additional complaints GI Denies abdominal pain, Denies belching, Denies melena, Denies bloating, Denies change in bowel habits, Denies dysphagia, Denies excessive flatus, Reports dyspepsia, Reports heartburn, Denies diarrhea, Denies loose stools, Denies nausea, Denies odynophagia and Denies vomiting Reports no additional complaints Musc Reports no additional complaints Neuro Reports no additional complaints Psych Reports no additional complaints Endo Reports no additional complaints Physical Exam Vital Signs: Last Vital Signs Pulse 89 04/05/23 14:01 BP 138/62 04/05/23 14:01 BMI result Body Mass Index 27.9 Const General: healthy appearing, no acute distress and well developed Nutritional Appearance: well nourished Orientation/consciousness: patient oriented x3 Resp Effort & Inspection: normal respiratory effort, able to speak in complete sentences, no tracheal deviation and symmetric chest movement Auscultation: clear to auscultation bilaterally Cardio Rate: regular rate GI Inspection: Yes normal to inspection and No distended Palpation (GI): Soft to palpation, not firm, nontender and No hepatosplenomegaly present Auscultation: normal bowel sounds General: Yes no CVA tenderness Back/Spine/Pelvis Back: no CVA tenderness Skin General skin exam: elasticity normal, turgor normal and dry skin Neuro General: patient oriented x3 Psych Appearance: grossly normal Mental Status: mental status grossly normal Assessment & Plan Assessment & Plan (1) Colon cancer screening: Code(s): Z12.11 - Encounter for screening for malignant neoplasm of colon (2) Ellsworth esophagus: Code(s): K22.70 - Ellsworth's esophagus without dysplasia Qualifiers: Ellsworth's esophagus type: without dysplasia Qualified Code(s): K22.70 - Ellsworth's esophagus without dysplasia (3) Acid reflux: Code(s): K21.9 - Gastro-esophageal reflux disease without esophagitis Qualifiers: Esophagitis presence: esophagitis presence not specified Qualified Code(s): K21.9 - Gastro-esophageal reflux disease without esophagitis Plan Patient denies any cardiac or respiratory symptoms.? Patient reports acid reflux despite taking omeprazole. Will change omeprazole to Nexium. Patient states that she took Nexium in the past and did well. Discussed with patient avoiding dietary triggers and late night snacking. Staying upright for minimum 3 hours after meals discussed with patient. Patient will be sent for upper endoscopy to rule out Ellsworth's, esophagitis, gastritis, duodenitis, gastric or peptic ulcers, H pylori. Denies any issues with anesthesia in the past.? Denies any history of sleep apnea.? No history infectious diseases in the past or present.? Not on any anticoagulation therapy.? ? Patient denies melena, hematochezia, unintentional weight loss or ribbon like stools.? Discussed at length the pre-procedure,? prep, diet & medications as well as what to expect prior, during and after the procedure.?? Stressed the importance of good bowel prep. ?Recommended the use of Vaseline or Calmoseptine OTC & baby wipes with bowel movements to promote comfort.? ?Patient verbalizes understanding and agrees to plan of care.? She was given the opportunity to ask questions and all questions answered.? We will see her after the procedure.? Medications: New esomeprazole magnesium (Nexium) 40 mg PO DAILY 30 caps 5RF K21.9 - Gastro-esophageal reflux disease without esophagitis bisacodyl (Dulcolax (bisacodyl)) take 4 tabs at noon the day before your colonoscopy 20 mg (4 x 5 mg) PO ONCE 1 day 4 tabs 0RF Z12.11 - Encounter for screening for malignant neoplasm of colon polyethylene glycol 3350 (Miralax) As directed by gastroenterology department at [facility] 238 grams PO ONCE 238 grams 0RF Z12.11 - Encounter for screening for malignant neoplasm of colon Discontinued omeprazole Discontinued Reason: Doctor's Order 20 mg PO DAILY 90 days 90 caps 1RF Coding Level of Care Code New Pt Level 3 (62800) Diagnoses Colon cancer screening Z12.11 Ellsworth's esophagus without dysplasia K22.70 Ellsworth's esophagus type: without dysplasia Gastroesophageal reflux disease, unspecified whether esophagitis present K21.9 Esophagitis presence: esophagitis presence not specified Time Spent (min) 40 Comment 30 minutes patient and additional 10 minutes spent reviewing her records
[2023-04-05 14:01] VITALS: BP 138/62; PULSE 89; BMI 27.9
== END 2023-04-05 14:39 | disposition home or self-care (01) ==
PROVIDERS: PCP Nurse Practitioner Family; Visit Provider Nurse Practitioner Family
DX: Z12.11 Encounter for screening for malignant neoplasm of colon (principal); K22.70 Barrett's esophagus without dysplasia; K21.9 Gastro-esophageal reflux disease without esophagitis; Z01.818 Encounter for other preprocedural examination
CPT/HCPCS: 99203

== ENCOUNTER → 2023-04-05 13:51 | Outpatient (BNVA) | payer OTHER, SELFPAY | PROVIDERS: PCP Nurse Practitioner Family; Visit Provider Nurse Practitioner Family | DX: Z12.11 Encounter for screening for malignant neoplasm of colon (principal); K22.70 Barrett's esophagus without dysplasia; K21.9 Gastro-esophageal reflux disease without esophagitis | CPT/HCPCS: 99202 ==

== ENCOUNTER 2023-04-06 10:48 | Outpatient (REF) | payer OTHER, SELFPAY ==
[2023-04-14 06:33] LABS: HPV mRNA E6/E7 rflx Not Detected (Not Detected)
== END 2023-04-06 10:49 | disposition home or self-care (01) ==
LOC: HO.LNP 10:48
PROVIDERS: PCP Nurse Practitioner Family; Visit Provider Advanced Practice Midwife
DX: Z01.419 Encounter for gynecological examination (general) (routine) without abnormal findings (principal); Z11.51 Encounter for screening for human papillomavirus (HPV)
CPT/HCPCS: 87624; 88142; 99397

== ENCOUNTER 2023-04-06 10:48 | Outpatient (AMB) | payer OTHER, SELFPAY ==
--- NOTE | 2023-04-06 10:50 | A.OFFVIS_ITS ---
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 She is present with her daughter, Ra. She is doing well with no concerns. Attempting to eat a healthy diet with calcium and vitamin D and stays active with exercise. Currently not sexually active. Denies any vaginal dryness or irritation. STI testing offered; she declined. Last pap smear; unknown, >5yrs. Last mammogram; 03/2023. Colonoscopy appointment has been booked. Denies any family history of breast, ovarian or colon cancer. PFSH Medical History Arthritis Arteriosclerosis Ellsworth esophagus Acid reflux Thyroid disease High blood pressure Surgical History (Updated 04/06/23 @ 10:59 by NARCISO Rivas) Hx of section History of appendectomy Hx of colonoscopy History of esophagogastroduodenoscopy (EGD) H/O cataract removal with insertion of prosthetic lens No pertinent past surgical history Family History (Updated 04/06/23 @ 11:16 by Sue Marino CNM) Mother Diabetes Father Asthma Family/Other Diabetes Thyroid disease Sister History of breast cancer, Onset Age: 56 Social History Housing: Apartment Patient Tobacco Use Status: Former Tobacco user e-Cigarette/Vaping Use: Never Used service: No Current occupational status: unemployed Cognitive needs: No Hearing needs: Yes Vision needs: No Female Reproductive History Menstrual Total pregnancies: 4 Full term: 4 Number of Living Children: 4 Date of Mammogram: 03/21/23 Date of last Bone Density Screenin03/21/23 Review of Systems Const All systems reviewed & are unremarkable except as noted in HPI and below Reports as per HPI Eyes Reports no additional complaints ENT Reports no additional complaints Card Reports no additional complaints Resp Reports no additional complaints GI Reports as per HPI and Reports no additional complaints Reports as per HPI Musc Reports no additional complaints Skin/Breast Reports as per HPI Neuro Reports no additional complaints Psych Reports no additional complaints Endo Reports no additional complaints Hung/Lymph Reports no additional complaints Aller/Immun Reports no additional complaints Physical Exam Vital Signs: Last Vital Signs BP 124/76 04/06/23 10:51 BMI result Body Mass Index 28.2 Const General: cooperative, healthy appearing, no acute distress, well developed and alert Orientation/consciousness: patient oriented x3 HEENT Head: Yes normal to inspection Eyes General: appearance normal, both eyes and all related structures Neck Neck: Yes normal visual inspection Thyroid: Thyroid normal Chest Chest palpation & inspection: normal inspection of the chest and other (no puckering, dimpling, peau de orange, retraction, discharge, masses) Breast/axilla inspection: normal inspection of the breasts Breast/axilla palpation: normal palpation of the breasts Resp Effort & Inspection: normal respiratory effort GI Inspection: Yes normal to inspection Palpation (GI): Soft to palpation Rectal Exam - Female: deferred General: Yes bladder normal to palpation External Female Exam: normal external appearance and normal appearance of the urethra Speculum Exam - Vagina: normal appearance of the vagina, normal palpation, normal vaginal discharge and vagina atrophic Speculum Exam - Cervix: normal appearance of the cervix and normal palpation Bimanual exam- vagina & uterus: normal bimanual exam, normal palpation, uterine size normal, bladder normal to palpation, normal palpation, non-tender and other (bled slightly with Pap) Bimanual Exam- Adnexa, other: no masses Skin General skin exam: no rashes or lesions noted Rashes: no rashes Neuro General: patient oriented x3 Cognition (Neuro): normal cognition Extrem General: Yes normal to inspection Psych Attitude: cooperative Thought process: Normal thought process present Assessment & Plan Assessment & Plan (1) Encounter for well woman exam with routine gynecological exam: Code(s): Z01.419 - Encounter for gynecological examination (general) (routine) without abnormal findings Plan Discussed: Current recommendations for pap smears per ASCCP guidelines. Breast awareness, periodic self breast exams and yearly mammogram. Maintain a healthy lifestyle, well balanced diet including Calcium 1,200 mg and Vitamin D 600 IU daily, and routine exercise. Contact the office with any postmenopausal bleeding. All of her questions and concerns were addressed to the best of my ability. RTO in 1 year for annual animation producer exam. This note is constructed using voice recognition software. While every effort has been made to ensure accuracy, black top spreader machine operator errors may have been included. Coding Level of Care Code Est Pt Prev Care >65y(35804) Diagnoses Encounter for well woman exam with routine gynecological exam Z01.419
[2023-04-06 10:51] VITALS: BP 124/76; BMI 28.2
== END 2023-04-06 11:30 | disposition home or self-care (01) ==
PROVIDERS: PCP Nurse Practitioner Family; Visit Provider Advanced Practice Midwife
DX: Z01.419 Encounter for gynecological examination (general) (routine) without abnormal findings (principal)
CPT/HCPCS: 99397

== ENCOUNTER 2023-05-29 09:59 | Outpatient (AMB) | payer OTHER, SELFPAY ==
--- NOTE | 2023-05-29 10:04 | A.OFFPC_ITS ---
Vital Signs 05/29/23 10:05 Height 5 ft 1 in Weight 151 lb 4 oz BMI 28.6 BP 136/78 Blood Pressure Location Rt brachial Position Sitting Respiration 13 Pulse 78 Pulse Source Pulse Oximeter Temp 97.8 F Temp Source Temporal Artery Scan Pulse Oximetry (%) 99 Oxygen Delivery Method Room Air Intake Visit Reasons: DM & HTN Mass Spectrometry Manager Required: Yes Mass Spectrometry Manager Name: [id number] ([id number]) Accompanied by: Daughter Allergies No Known Allergies Allergy (Verified 05/29/23 10:20) Medication List - Last Reconciled 05/29/23 by Libby Zhao CNP bisacodyl (Dulcolax (bisacodyl)) 20 mg (4 x 5 mg) PO ONCE 1 day cholecalciferol (vitamin D3) 50 mcg PO DAILY 90 days esomeprazole magnesium (Nexium) 40 mg PO DAILY ketorolac 0.5% drps ophthalmic (eye) levothyroxine 25 mcg PO DAILY 90 days lisinopril 20 mg PO DAILY 90 days metformin 1,000 mg PO BID 90 days polyethylene glycol 3350 (Miralax) 238 grams PO ONCE rosuvastatin 20 mg PO DAILY 90 days Tobacco use date assessed: 03/31/23 Last assessed Fall Risk: 05/29/23 Dental Screening Dental Screen Date: 05/29/23 Did you have a dental visit in the last 12 months?: Yes Did you have a dental problem in the last 6 months where you did not have access to dental care?: No Was dental information given to patient?: Patient has dentist HPI HPI Comments History of Present Illness Details 68 y/o Faroese speaking female, accompan ied by her daughter, presents for hypertension follow-up She admits to taking her medications as prescribed without adverse reactions She admits to making healthy dietary changes. However, she has not been exercising due to the cold weather She offers no complaints and denies acute symptoms at this time Interpretation by professional carton forming machine adjuster via electronic tablet PFSH Medical History Arthritis Arteriosclerosis Ellsworth esophagus Acid reflux Thyroid disease High blood pressure Surgical History Hx of section History of appendectomy Hx of colonoscopy History of esophagogastroduodenoscopy (EGD) H/O cataract removal with insertion of prosthetic lens No pertinent past surgical history Family History Mother Diabetes Father Asthma Family/Other Diabetes Thyroid disease Sister History of breast cancer, Onset Age: 56 Social History Housing: Apartment Patient Tobacco Use Status: Former Tobacco user e-Cigarette/Vaping Use: Never Used service: No Current occupational status: unemployed Cognitive needs: No Hearing needs: No Vision needs: No Questionnaire Thrive Questionnaire Date Thrive assessed: 12/22/22 SANTANA-7 AMB Questionnaire SANTANA-7 Date SANTANA - 7 assessed: 12/22/22 Source: Developed by Drs. Dean Rojo, Conchita Coleman, Tyrone Colin and colleagues, with an educational cotl from [employer]. Review of Systems Const Details: Const Denies chills, Denies fatigue, Denies fever(s), Denies headache(s) and Denies weakness ENT Denies dizziness and Denies headache(s) Card Denies chest pain, Denies lightheadedness, Denies dyspnea and Denies other (Palpitations) Resp Denies cough, Denies dyspnea, Denies wheezing and Denies other ( shortness of breath) GI Denies abdominal pain, Denies melena, Denies hematochezia, Denies change in bowel habits, Denies dyspepsia and Denies nausea Denies hematuria and Denies dysuria Musc Denies abnormal gait, Denies myalgias, Denies arthralgias, Denies numbness and Denies tingling Skin/Breast Denies rash, Denies unusual bruising and Denies wounds Neuro Denies abnormal gait, Denies dizziness, Denies headache(s), Denies memory loss, Denies numbness, Denies Sensory deficit (Neuro), Denies tingling and Denies weakness Psych Denies anxiety, Denies depression, Denies memory loss Endo Denies cold intolerance, Denies fatigue, Denies heat intolerance, Denies polydipsia and Denies polyuria Aller/Immun Denies wheezing Physical exam (Primary Care) Vital Signs: Last Vital Signs Temp 97.8 F 05/29/23 10:05 Pulse 78 05/29/23 10:05 Resp 13 05/29/23 10:05 BP 136/78 05/29/23 10:05 Pulse Ox 99 05/29/23 10:05 Oxygen Delivery Method Room Air 05/29/23 10:05 BMI result Body Mass Index 28.6 Tobacco/Smoking Status: Tobacco use Status Tobacco use date assessed 03/31/23 05/29/23 10:15 Patient Tobacco Use Status Former Tobacco user 05/29/23 10:15 e-Cigarette/Vaping Use Never Used 05/29/23 10:15 Thrive Assessment: Date of Thrive Assessment Date Thrive assessed 12/22/22 05/29/23 10:15 Const Other: General: no acute distress and well developed Nutritional Appearance: well nourished Orientation/consciousness: patient oriented x3 HENMT Head: Yes normocephalic and Yes atraumatic Eyes General: appearance normal, both eyes and all related structures Pupils: Equal, round and reactive pupils present EOM: EOMs intact bilaterally Resp Effort & Inspection: normal respiratory effort Auscultation: clear to auscultation bilaterally Cardio Rate: regular rate Rhythm: regular rhythm Heart sounds: S1 normal heart sound present, S2 normal heart sound present, no gallops, no murmurs and no rubs GI Palpation (GI): No Abdominal aortic bruit present, Soft to palpation, nontender, No hepatosplenomegaly present and No Rebound tenderness present Auscultation: normal bowel sounds General: Yes no CVA tenderness Back/Spine/Pelvis Back: no CVA tenderness Cervical Spine: cervical ROM normal and No Cervical spine tenderness Thoracic/Lumbar Spine: thoraco-lumbar ROM normal, No pain with thoraco-lumbar ROM, No thoracic spinal tenderness and No lumbar spinal tenderness Extrem General: Yes normal to inspection, No edema and No calf tenderness Skin General: warm and dry. Normal skin color. Normal skin turgor Neuro General: patient oriented x3, gait normal and no focal neuro deficit Cranial nerves: Yes Equal, round and reactive pupils present Cognition (Neuro): normal cognition Gait exam (Neuro): Normal gait present Sensory Exam: No Sensory deficit (Neuro) Psych Appearance: grossly normal Affect: normal affect Attitude: cooperative Thought process: Normal thought process present Results AMB Hemoglobin A1c AMB Hemoglobin A1c 7.7 % Last Edit by Trish Burton MA on 05/29/23 10:26 Assessment and Plan Assessment & Plan (1) Essential hypertension: Code(s): I10 - Essential (primary) hypertension Plan: Resting BP is 136/78, slightly above goal of less that 130/80 Will increase Lisinopril to 30mg daily. Advised to take as prescribed Low sodium diet encouraged Follow up in 1 month hypertension, diabetes, and hypothyroidism or return sooner with symptoms or concern Advised to get lipid panel and TSH/T4 blood work done before his next visit Verbalized understanding and agreed with the the treatment plan (2) Diabetes mellitus: Code(s): E11.9 - Type 2 diabetes mellitus without complications Plan: A1c today is 7.7%, above goal of 7.0%. Previous A1c was 7.4% Will start Glyburide 5mg daily. Advised to take as prescribed with food Diabetes supplies ordered for POC monitoring. Advised to check blood glucose 3 times daily, record readings, and bring to next appointment ADA diet and routine exercise encouraged Follow-up in 1 month or return sooner with symptoms or concerns Verbalized understanding and agreed with treatment plan Orders: Orders Lipid Panel 3 Months E11.9 - Type 2 diabetes mellitus without complications AMB Hemoglobin A1c Today E11.9 - Type 2 diabetes mellitus without complications TSH reflex Free T4 Today E03.9 - Hypothyroidism, unspecified Medications: New lisinopril 10 mg PO DAILY 90 days 90 tabs 1RF lisinopril Take with Lisinopril 20mg to equal 30mg daily 10 mg PO DAILY 90 days 90 tabs 1RF lancets (CriticalArc PtyTouch UltraSoft 2 Lancet) POC testing TID 100 ea 4RF glyburide 5 mg PO DAILY 30 days 30 tabs 3RF blood sugar diagnostic (OneTouch Ultra Test strips) POC testing TID 100 ea 4RF E11.9 - Type 2 diabetes mellitus without complications blood-glucose meter (OneTouch Ultra2 Meter) POC testing TID 1 ea 0RF Coding Level of Care Code Est Pt Level 4 (47999) Diagnoses Essential hypertension I10 Diabetes mellitus E11.9
[2023-05-29 10:05] VITALS: BP 136/78; PULSE 78; RESP 13; TEMP 36.6; O2SAT 99; BMI 28.6
== END 2023-05-29 10:42 | disposition home or self-care (01) ==
PROVIDERS: Visit Provider Nurse Practitioner Family
DX: I10 Essential (primary) hypertension (principal); E11.9 Type 2 diabetes mellitus without complications
CPT/HCPCS: 83036; 99214

== ENCOUNTER 2023-06-09 12:36 | Outpatient (AMB) | payer OTHER, SELFPAY ==
[2023-06-09 12:45] VITALS: BP 128/72; PULSE 84; TEMP 36.4; O2SAT 99; BMI 28.1
--- NOTE | 2023-06-09 12:45 | MHC.PC.OV ---
Vital Signs 06/09/23 12:45 Height 5 ft 1 in Weight 148 lb 8 oz BMI 28.1 BP 128/72 Blood Pressure Location Rt brachial Position Sitting Pulse 84 Pulse Source Pulse Oximeter Temp 97.6 F Temp Source Temporal Artery Scan Pulse Oximetry (%) 99 Oxygen Delivery Method Room Air Intake Visit Reasons: DM/ new med side effects Fibreglass Laminator Required: Yes Fibreglass Laminator Name: [id number] Accompanied by: Daughter Allergies No Known Allergies Allergy (Verified 06/09/23 12:59) Medication List - Last Reconciled 06/09/23 by Libby Zhao CNP bisacodyl (Dulcolax (bisacodyl)) 20 mg (4 x 5 mg) PO ONCE 1 day blood sugar diagnostic (AkeLexuch Ultra Test strips) POC testing TID blood-glucose meter (AkeLexuch Ultra2 Meter) POC testing TID cholecalciferol (vitamin D3) 50 mcg PO DAILY 90 days esomeprazole magnesium (Nexium) 40 mg PO DAILY ketorolac 0.5% drps ophthalmic (eye) lancets (AkeLexuch UltraSoft 2 Lancet) POC testing TID levothyroxine 25 mcg PO DAILY 90 days lisinopril 20 mg PO DAILY 90 days lisinopril 10 mg PO DAILY 90 days metformin 1,000 mg PO BID 90 days polyethylene glycol 3350 (Miralax) 238 grams PO ONCE rosuvastatin 20 mg PO DAILY 90 days Tobacco use date assessed: 03/31/23 Last assessed Fall Risk: 06/09/23 Dental Screening Dental Screen Date: 06/09/23 Did you have a dental visit in the last 12 months?: Yes Did you have a dental problem in the last 6 months where you did not have access to dental care?: No Was dental information given to patient?: Patient has dentist HPI HPI Comments History of Present Illness Details 68-year-old Croatian-speaking female, accompanied by her daughter, presents with complaints of adverse reactions to glyburide which was added for treatment regimen on 05/29/2023. She notes that she took the medication twice and experienced dizziness both times; therefore, she stopped taking the medication. She no longer experiences dizziness She continues to take metformin as prescribed She brought a glucose long for the past 1 wk. Her FBG is between 98 - 145, RBS between 114 - 248 She want to continue to take Metformin as prescribed Interpretation by a professional hvac journeyman via electronic tablet [facility] Medical History Arthritis Arteriosclerosis Ellsworth esophagus Acid reflux Thyroid disease High blood pressure Surgical History Hx of section History of appendectomy Hx of colonoscopy History of esophagogastroduodenoscopy (EGD) H/O cataract removal with insertion of prosthetic lens No pertinent past surgical history Family History Mother Diabetes Father Asthma Family/Other Diabetes Thyroid disease Sister History of breast cancer, Onset Age: 56 Social History Housing: Apartment Patient Tobacco Use Status: Former Tobacco user e-Cigarette/Vaping Use: Never Used service: No Current occupational status: unemployed Cognitive needs: No Hearing needs: No Vision needs: No Questionnaire Thrive Questionnaire Date Thrive assessed: 12/22/22 SANTANA-7 AMB Questionnaire SANTANA-7 Date SANTANA - 7 assessed: 12/22/22 Source: Developed by Drs. Dean Rojo, Conchita Coleman, Tyrone Colin and colleagues, with an educational colt from [employer]. Review of Systems Const Details: Const Denies chills, Denies fatigue, Denies fever(s), Denies headache(s) and Denies weakness ENT Denies dizziness and Denies headache(s) Card Denies chest pain, Denies lightheadedness, Denies dyspnea and Denies other (Palpitations) Resp Denies cough, Denies dyspnea, Denies wheezing and Denies other ( shortness of breath) GI Denies abdominal pain, Denies melena, Denies hematochezia, Denies change in bowel habits, Denies dyspepsia and Denies nausea Denies hematuria and Denies dysuria Musc Denies abnormal gait, Denies myalgias, Denies arthralgias, Denies numbness and Denies tingling Skin/Breast Denies rash, Denies unusual bruising and Denies wounds Neuro Denies abnormal gait, Denies dizziness, Denies headache(s), Denies memory loss, Denies numbness, Denies Sensory deficit (Neuro), Denies tingling and Denies weakness Psych Denies anxiety, Denies depression, Denies memory loss Endo Denies cold intolerance, Denies fatigue, Denies heat intolerance, Denies polydipsia and Denies polyuria Aller/Immun Denies wheezing Physical exam (Primary Care) Vital Signs: Last Vital Signs Temp 97.6 F 06/09/23 12:45 Pulse 84 06/09/23 12:45 BP 128/72 06/09/23 12:45 Pulse Ox 99 06/09/23 12:45 Oxygen Delivery Method Room Air 06/09/23 12:45 BMI result Body Mass Index 28.1 Tobacco/Smoking Status: Tobacco use Status Tobacco use date assessed 03/31/23 06/09/23 12:57 Patient Tobacco Use Status Former Tobacco user 06/09/23 12:57 e-Cigarette/Vaping Use Never Used 06/09/23 12:57 Thrive Assessment: Date of Thrive Assessment Date Thrive assessed 12/22/22 06/09/23 12:57 Const Other: General: no acute distress and well developed Nutritional Appearance: well nourished Orientation/consciousness: patient oriented x3 HENMT Head: Yes normocephalic and Yes atraumatic Eyes General: appearance normal, both eyes and all related structures Pupils: Equal, round and reactive pupils present EOM: EOMs intact bilaterally Resp Effort & Inspection: normal respiratory effort Auscultation: clear to auscultation bilaterally Cardio Rate: regular rate Rhythm: regular rhythm Heart sounds: S1 normal heart sound present, S2 normal heart sound present, no gallops, no murmurs and no rubs GI Palpation (GI): No Abdominal aortic bruit present, Soft to palpation, nontender, No hepatosplenomegaly present and No Rebound tenderness present Auscultation: normal bowel sounds General: Yes no CVA tenderness Back/Spine/Pelvis Back: no CVA tenderness Cervical Spine: cervical ROM normal and No Cervical spine tenderness Thoracic/Lumbar Spine: thoraco-lumbar ROM normal, No pain with thoraco-lumbar ROM, No thoracic spinal tenderness and No lumbar spinal tenderness Extrem General: Yes normal to inspection, No edema and No calf tenderness Skin General: warm and dry. Normal skin color. Normal skin turgor Neuro General: patient oriented x3, gait normal and no focal neuro deficit Cranial nerves: Yes Equal, round and reactive pupils present Cognition (Neuro): normal cognition Gait exam (Neuro): Normal gait present Sensory Exam: No Sensory deficit (Neuro) Psych Appearance: grossly normal Affect: normal affect Attitude: cooperative Thought process: Normal thought process present Assessment and Plan Assessment & Plan (1) Diabetes mellitus: Code(s): E11.9 - Type 2 diabetes mellitus without complications Plan: Experienced dizziness twice the first two times she took glipizide She stop taking the medication and has not been experiencing dizziness since Will d/c glipizide at this time She does not want to start a G1P-1 agonist or long acting insulin at this time and will instead exercise, maintain a healthy diet, and continue to take Metformin as prescribed Advised to take metformin as prescribed ADA diet and routine exercise encouraged Advised to f/u in 3 months or return sooner with symptoms or concerns Verbalized understanding and agreed with the plan Coding Level of Care Code Est Pt Level 3 (57167) Diagnoses Diabetes mellitus E11.9
== END 2023-06-09 13:28 | disposition home or self-care (01) ==
PROVIDERS: PCP Nurse Practitioner Family; Visit Provider Nurse Practitioner Family
DX: E11.9 Type 2 diabetes mellitus without complications (principal)
CPT/HCPCS: 99213

== ENCOUNTER 2023-06-20 10:00 | Day surgery (SDC) | payer OTHER, SELFPAY ==
[2023-06-16 09:13] VITALS: BMI 28.0
--- NOTE | 2023-06-19 10:56 | HO.ANESPROP2 ---
Documented by User: Karlie Basurto NP 06/19/23 10:56 HPI - Anesthesia Eval Consult details Narrative: 68yo F for Upper Endoscopy and Colonoscopy PMFSH Active Problems Active Problems: All Active Problems Osteopenia after menopause (Acute) Preoperative clearance (Acute) Tinnitus, right ear (Acute) Mild anemia (Acute) Vaccine counseling (Acute) Pap smear for cervical cancer screening (Acute) Age-related osteoporosis without current pathological fracture (Acute) Colon cancer screening (Acute) Breast cancer screening by mammogram (Acute) Elevated LDL cholesterol level (Acute) Hypothyroidism (Acute) Normal physical examination, routine (Acute) Diabetes mellitus (Acute) Essential hypertension (Acute) Ellsworth esophagus (Acute) Acid reflux (Acute) Arthritis (Acute) Past Medical History Medical History Diabetes Arthritis Arteriosclerosis Ellsworth esophagus Acid reflux Thyroid disease High blood pressure Family History Family History Mother Diabetes Father Asthma Family/Other Diabetes Thyroid disease Sister History of breast cancer, Onset Age: 56 Surgical History Surgical History Hx of section History of appendectomy Hx of colonoscopy History of esophagogastroduodenoscopy (EGD) H/O cataract removal with insertion of prosthetic lens Social History Social History Housing: Apartment Patient Tobacco Use Status: Former Tobacco user e-Cigarette/Vaping Use: Never Used Are you DNR?: No Advance Directives: No Advance Directives Information Provided: Yes Nutrition Risks: No Nutritional Risk service: No Current occupational status: unemployed Cognitive needs: No Hearing needs: No Vision needs: No Meds Allergies Allergy/AdvReac Type Severity Reaction Status Date / Time No Known Allergies Allergy Verified 06/09/23 12:59 Home Medications ?Medication ?Instructions ?Recorded ?Confirmed ?Last Taken ?Type ketorolac 0.5 % eye drops 1 drp ophthalmic (eye) DAILY 04/05/23 06/16/23 Unknown History Exam Height,Weight and Vital Signs: Height 5 ft 1 in Weight 67.132 kg Assessment and Plan Assessment Anesthesia Assessment: Chart Reviewed Documented by User: Eufemia Vega MD 06/20/23 10:37 PMFSH Past Medical History Medical History Diabetes Arthritis Arteriosclerosis Ellsworth esophagus Acid reflux Thyroid disease High blood pressure Family History Family History Mother Diabetes Father Asthma Family/Other Diabetes Thyroid disease Sister History of breast cancer, Onset Age: 56 Surgical History Surgical History Hx of section History of appendectomy Hx of colonoscopy History of esophagogastroduodenoscopy (EGD) H/O cataract removal with insertion of prosthetic lens History of Problems with Anesthesia: No Social History Social History Housing: Apartment Patient Tobacco Use Status: Former Tobacco user e-Cigarette/Vaping Use: Never Used Are you DNR?: No Advance Directives: No Advance Directives Information Provided: Yes Nutrition Risks: No Nutritional Risk service: No Current occupational status: unemployed Cognitive needs: No Hearing needs: No Vision needs: No Meds Allergies Allergy/AdvReac Type Severity Reaction Status Date / Time No Known Allergies Allergy Verified 06/09/23 12:59 Home Medications ?Medication ?Instructions ?Recorded ?Confirmed ?Last Taken ?Type ketorolac 0.5 % eye drops 1 drp ophthalmic (eye) DAILY 04/05/23 06/16/23 Unknown History Exam Airway Mallampati Class: II TM Dist: >3cm Neck ROM: Full Loose/Missing/Broken Teeth: No Heart: RRR Lungs: CTA Assessment and Plan Assessment Anesthesia Assessment: Anesthesia Plan Discussed Final Anesthetic Review History of Problems with Anesthesia: No NPO: Yes ASA Class: II Final Preanesthetic Review: Meds/Allgs Chart Reviewed, Consent Obtained/Reviewed and Anes Risks/Benef Reviewed Patient Risk: Low Procedure Risk: Intermediate Anesthetic Plan Anesthetic Plan: MAC: Disposition: Standard PACU
[2023-06-20 10:23] VITALS: BMI 27.7
[2023-06-20] MEDS: Lactated Ringers 1,000 ML 100 ML IVCONT (10:25)
[2023-06-20 10:40] VITALS: BP 153/66; PULSE 90; RESP 18; TEMP 36.6; O2SAT 99
[2023-06-20 10:40] LABS: Glucose, Whole Blood 148 mg/dL (60-115)
--- NOTE | 2023-06-20 10:54 | P.HPSUR_ITS ---
Pre-Procedural Eval Section A - 24 Hr Update-Section A only Date of Service: 06/20/23 Section B - Complete if H&P > 30 days Chief Complaint: Screening, Ellsworth's esophagus Details of Present Illness: Medical History (Updated 04/05/23 @ 14:44 by Phuong Pennington [facility]) Arthritis Arteriosclerosis Ellsworth esophagus Acid reflux Thyroid disease High blood pressure Surgical History (Updated 04/05/23 @ 14:05 by NARCISO Cassidy) Hx of colonoscopy History of esophagogastroduodenoscopy (EGD) H/O cataract removal with insertion of prosthetic lens No pertinent past surgical history Family History Mother Diabetes Father Asthma Family/Other Diabetes Thyroid disease Allergies: Allergies Allergy/AdvReac Type Severity Reaction Status Date / Time No Known Allergies Allergy Verified 06/20/23 10:51 Review of Systems Review of Systems Comment: 10 point ROS negative Exam Exam Comment: Gen appear: No acute distress HEENT: no icterus Chest: No overt resp distress Abd: soft, nontender, nondistended Psych: Stable affect, answering questions appropriately Neuro: A/Ox3 noted to move all extremities spontaneously Ext: no peripheral edema Plan Diagnosis/Plan: Unchanged I have reviewed the history and physical and performed a pertinent physical examination on my patient. No changes have occurred unless specified. Time Spent With Patient Time: Total time managing care of this patient today ____ minutes.
--- NOTE | 2023-06-20 10:56 | W.PM.OPN ---
Operative Note Operative Note Date of Service: 06/20/23 Narrative: Procedure: Upper endoscopy and colonoscopy Indication: Hx of BE, Hx of polyps Endoscopist: Sofia Chowdary MD Anesthesia Provider: Sydnee Sifuentes CRNA Anesthesia type: MAC Instrument: GIF-H190 and PCF-[id number] EGD Procedure:?? The procedure, indications, preparation and potential complications were reviewed with the patient, who indicated understanding and gave written informed consent to proceed. An collection systems administrator assisted with the informed consent. Physical exam was performed. The endoscope was introduced through the mouth, and advanced to the second part of duodenum. The mucosa was carefully examined on slow withdrawal of the endoscope. The patient tolerated the procedure well. There were no immediate complications.? EGD Findings:? Esophagus:? Normal esophageal mucosa. The Z-line was at 35 cm. There was a small hiatal hernia with the diaphragmatic hiatus at 38 cm. Cold forceps biopsies were taken from the GE junction due to previously reported hx of Ellsworth's esophagus. Stomach:? Normal gastric mucosa. Retroflexion the cardia revealed Hill grade 3 hiatal hernia. Duodenum:? Normal duodenal mucosa to the extent examined. Colonoscopy Procedure:? The patient was then turned for the colonoscopy. A digital rectal exam was performed which was normal.? A distal attachment cap was affixed to the tip of the scope and the colonoscope was then inserted through the anus and advanced through the colon and advanced to the cecum at 70 cm.? Appendiceal orifice and ileocecal valve were identified.? Mucosa was carefully examined under high definition white light as the instrument was slowly withdrawn in a retrograde panoramic fashion. Retroflexion was performed in rectum. The procedure was not difficult. There were no immediate obvious complications. The quality of the prep was BBPS: 2+3+3 = adequate Withdrawal time 10 minutes. Limitations: No limitations Findings: Mucosa: Normal colon and terminal ileum mucosa Protruding lesions: Small internal hemorrhoids without stigmata of recent bleeding. Impression: 1. Normal esophagus 2. Hiatal hernia 3. Normal stomach 4. Normal duodenum 5. Normal colon and terminal ileum mucosa 6. Internal hemorrhoids Recommendations:?? Follow-up path results Avoid NSAIDs Repeat colonoscopy in 7-10 years for asymptomatic colorectal cancer screening
[2023-06-20 11:42] VITALS: BP 101/42; PULSE 89; RESP 14; TEMP 36.4; O2SAT 99
[2023-06-20 11:57] VITALS: BP 112/49; PULSE 92; RESP 18; O2SAT 100
[2023-06-20 12:00] VITALS: BP 127/61; PULSE 79; RESP 20; TEMP 36.1; O2SAT 100
== END 2023-06-20 12:15 | disposition home or self-care (01) ==
PROVIDERS: PCP Nurse Practitioner Family; Visit Provider Internal Medicine
PROC: (CPT 45378; principal; 2023-06-20 12:00)
DX: Z12.11 Encounter for screening for malignant neoplasm of colon (principal); Z86.010 Personal history of colon polyps; K64.8 Other hemorrhoids; K22.70 Barrett's esophagus without dysplasia; K21.9 Gastro-esophageal reflux disease without esophagitis; K44.9 Diaphragmatic hernia without obstruction or gangrene; I10 Essential (primary) hypertension; E11.9 Type 2 diabetes mellitus without complications; E03.9 Hypothyroidism, unspecified; Z79.899 Other long term (current) drug therapy; Z56.0 Unemployment, unspecified; Z87.891 Personal history of nicotine dependence
CPT/HCPCS: 45378; 43239; 82947; 88305; 88313; 88342; J2704; J3010

== ENCOUNTER → 2023-06-20 10:00 | Outpatient (BNV) | payer OTHER, SELFPAY | PROVIDERS: PCP Nurse Practitioner Family; Visit Provider Internal Medicine | DX: K44.9 Diaphragmatic hernia without obstruction or gangrene (principal); Z12.11 Encounter for screening for malignant neoplasm of colon; K64.8 Other hemorrhoids | CPT/HCPCS: 43239; 45378 ==

== ENCOUNTER 2023-07-04 10:33 | Outpatient (AMB) | payer OTHER, SELFPAY ==
[2023-07-04 10:54] VITALS: BP 131/58; PULSE 86; BMI 27.8
--- NOTE | 2023-07-04 10:54 | MHC.OFFVIS ---
Vital Signs 07/04/23 10:54 Height 5 ft 1 in Weight 147 lb 4.301 oz BMI 27.8 BP 131/58 L Blood Pressure Location Rt brachial Position Sitting Pulse 86 Intake Visit Reasons: s/p egd/colon Intake Note: Patient in office today in follow up of EGD and colonoscopy. CC: Patient states that she is doing well and denies having any GI concerns today. Assistant Winemaker Required: Yes Assistant Winemaker Name: Josette fiore interprreter Allergies No Known Allergies Allergy (Verified 07/04/23 10:57) HPI HPI s/p egd/colon: Details: LAST VISIT Colon cancer screening Ellsworth esophagus Acid reflux Plan Patient denies any cardiac or respiratory symptoms.? Patient reports acid reflux despite taking omeprazole. Will change omeprazole to Nexium. Patient states that she took Nexium in the past and did well. Discussed with patient avoiding dietary triggers and late night snacking. Staying upright for minimum 3 hours after meals discussed with patient. Patient will be sent for upper endoscopy to rule out Ellsworth's, esophagitis, gastritis, duodenitis, gastric or peptic ulcers, H pylori. Denies any issues with anesthesia in the past.? Denies any history of sleep apnea.? No history infectious diseases in the past or present.? Not on any anticoagulation therapy.? ? Patient denies melena, hematochezia, unintentional weight loss or ribbon like stools.? Discussed at length the pre-procedure,? prep, diet & medications as well as what to expect prior, during and after the procedure.?? Stressed the importance of good bowel prep. ?Recommended the use of Vaseline or Calmoseptine OTC & baby wipes with bowel movements to promote comfort.? ?Patient verbalizes understanding and agrees to plan of care.? She was given the opportunity to ask questions and all questions answered.? We will see her after the procedure.? Medications New esomeprazole magnesium (Nexium) 40 mg PO DAILY 30 caps 5RF K21.9 bisacodyl (Dulcolax (bisacodyl)) take 4 tabs at noon the day before your colonoscopy 20 mg (4 x 5 mg) PO ONCE 1 day 4 tabs 0RF Z12.11 polyethylene glycol 3350 (Miralax) As directed by gastroenterology department at [facility] 238 grams PO ONCE 238 grams 0RF Z12.11 Discontinued omeprazole Discontinued Reason: Doctor's Order 20 mg PO DAILY 90 days 90 caps 1RF UPPER ENDOSCOPY AND COLONOSCOPY EGD Findings:? Esophagus:? Normal esophageal mucosa. The Z-line was at 35 cm. There was a small hiatal hernia with the diaphragmatic hiatus at 38 cm. Cold forceps biopsies were taken from the GE junction due to previously reported hx of Ellsworth's esophagus. Stomach:? Normal gastric mucosa. Retroflexion the cardia revealed Hill grade 3 hiatal hernia. Duodenum:? Normal duodenal mucosa to the extent examined. Colonoscopy Findings: Mucosa: Normal colon and terminal ileum mucosa Protruding lesions: Small internal hemorrhoids without stigmata of recent bleeding. Impression: 1. Normal esophagus 2. Hiatal hernia 3. Normal stomach 4. Normal duodenum 5. Normal colon and terminal ileum mucosa 6. Internal hemorrhoids Recommendations:?? Follow-up path results Avoid NSAIDs Repeat colonoscopy in 7-10 years for asymptomatic colorectal cancer screening PATHOLOGY RESULTS Diagnosis Esophagus, Z-line, biopsy: - Cardiac-type mucosa with moderate chronic inactive inflammation; no intestinal metaplasia seen. - Squamous mucosa within normal limits TODAY'S VISIT Patient is here today for follow-up and to discuss upper endoscopy and colonoscopy results. Patient reports to be feeling well. Denies any dyspepsia, dysphagia or odynophagia. Denies any melena, hematochezia, unintentional weight loss or ribbon like stools. Patient reports no ill effects from the prep, anesthesia or procedure itself. Colonoscopy showed no polyps, normal colonic mucosa seen. No diverticulosis. Biopsy esophagus showed no Ellsworth's. Patient reports to be feeling well. Currently is taking Nexium. Denies any GI concerning symptoms. [facility] Medical History (Updated 07/07/23 @ 21:20 by Phuong Pennington [facility]-) History of Ellsworth's esophagus Diabetes Arthritis Arteriosclerosis Ellsworth esophagus Acid reflux Thyroid disease High blood pressure Surgical History (Updated 07/04/23 @ 10:59 by JOHANNE Watson) Hx of section History of appendectomy Hx of colonoscopy History of esophagogastroduodenoscopy (EGD) H/O cataract removal with insertion of prosthetic lens Family History Mother Diabetes Father Asthma Family/Other Diabetes Thyroid disease Sister History of breast cancer, Onset Age: 56 Social History Housing: Apartment Patient Tobacco Use Status: Former Tobacco user e-Cigarette/Vaping Use: Never Used service: No Current occupational status: unemployed Cognitive needs: No Hearing needs: No Vision needs: No Review of Systems Const Denies weight gain and Denies weight loss ENT Reports no additional complaints, Denies dysphagia and Denies odynophagia Card Reports no additional complaints Resp Reports no additional complaints GI Denies abdominal pain, Denies belching, Denies melena, Denies bloating, Denies change in bowel habits, Denies dysphagia, Denies excessive flatus, Denies dyspepsia, Denies heartburn, Denies diarrhea, Denies loose stools, Denies nausea, Denies odynophagia and Denies vomiting Musc Reports no additional complaints Neuro Reports no additional complaints Psych Reports no additional complaints Endo Reports no additional complaints Physical Exam Vital Signs: Last Vital Signs Pulse 86 07/04/23 10:54 BP 131/58 L 07/04/23 10:54 BMI result Body Mass Index 27.8 Const General: healthy appearing, no acute distress and well developed Nutritional Appearance: well nourished Orientation/consciousness: patient oriented x3 Resp Effort & Inspection: normal respiratory effort, able to speak in complete sentences, no tracheal deviation and symmetric chest movement Auscultation: clear to auscultation bilaterally Cardio Rate: regular rate GI Inspection: Yes normal to inspection and No distended Palpation (GI): Soft to palpation, not firm, nontender and No hepatosplenomegaly present Auscultation: normal bowel sounds General: Yes no CVA tenderness Back/Spine/Pelvis Back: no CVA tenderness Skin General skin exam: elasticity normal, turgor normal and dry skin Neuro General: patient oriented x3 Psych Appearance: grossly normal Mental Status: mental status grossly normal Assessment & Plan Assessment & Plan (1) Colon cancer screening: Code(s): Z12.11 - Encounter for screening for malignant neoplasm of colon Category: Medical (2) Acid reflux: Code(s): K21.9 - Gastro-esophageal reflux disease without esophagitis Category: Medical Qualifiers: Esophagitis presence: esophagitis presence not specified Qualified Code(s): K21.9 - Gastro-esophageal reflux disease without esophagitis (3) History of Ellsworth's esophagus: Code(s): Z87.19 - Personal history of other diseases of the digestive system Category: Medical Plan Normal colonoscopy. , asymptomatic colonoscopy screening in 7-10 years. Sooner if clinically necessary. No Barretts found on biopsy. Patient would like to continue Nexium as her symptoms are better. Patient reports that when she stops Nexium her symptoms return. Patient can take that for the next couple months, next visit we might consider decreasing the dose or slowly weaning her off. Discussed with patient avoiding dietary triggers and late night snacking. Staying upright for minimum 3 hours after meals discussed with patient. Patient is agreeable to current plan of care and verbalizes understanding of instructions. She was given the opportunity to ask questions and all questions answered. Thank you for allowing me to participate in her care Medications: Refilled esomeprazole magnesium (Nexium) 40 mg PO DAILY 90 caps 1RF K21.9 - Gastro-esophageal reflux disease without esophagitis Discontinued lancets (OneTouch UltraSoft 2 Lancet) Discontinued Reason: Doctor's Order POC testing TID 100 ea 4RF Coding Level of Care Code Est Pt Level 3 (29252) Diagnoses Colon cancer screening Z12.11 Gastroesophageal reflux disease, unspecified whether esophagitis present K21.9 Esophagitis presence: esophagitis presence not specified History of Ellsworth's esophagus Z87.19 Time Spent (min) 30 Comment 20 minutes spent with patient and additional 10 minutes spent reviewing her records
== END 2023-07-04 11:26 | disposition home or self-care (01) ==
PROVIDERS: PCP Nurse Practitioner Family; Visit Provider Nurse Practitioner Family
DX: Z12.11 Encounter for screening for malignant neoplasm of colon (principal); K21.9 Gastro-esophageal reflux disease without esophagitis; Z87.19 Personal history of other diseases of the digestive system; Z01.818 Encounter for other preprocedural examination
CPT/HCPCS: 99213

== ENCOUNTER → 2023-07-04 10:33 | Outpatient (BNVA) | payer OTHER, SELFPAY | PROVIDERS: PCP Nurse Practitioner Family; Visit Provider Nurse Practitioner Family | DX: Z12.11 Encounter for screening for malignant neoplasm of colon (principal); K21.9 Gastro-esophageal reflux disease without esophagitis; Z87.19 Personal history of other diseases of the digestive system | CPT/HCPCS: 99212 ==

== ENCOUNTER 2023-08-28 09:38 | Outpatient (REF) | payer OTHER, SELFPAY ==
[2023-08-28 11:30] LABS: Appearance Urine Clear; Color Urine Yellow; Glucose Urine UA Negative (Negative); Leukocyte Esterase Urine Negative (Negative); Nitrite Urine Negative (Negative); Urine Blood Negative (Negative); Urine Ketones 15 mg/dL (Negative); Urine Protein Negative (Neg-Trace)
[2023-08-28 11:53] LABS: Cholesterol 112 mg/dL (<200); HDL Cholesterol 41 mg/dL (>40); LDL Cholesterol Calculated 50 mg/dL (<100); Triglycerides 109 mg/dL (<150)
[2023-08-28 12:11] LABS: TSH reflex Free T4 1.75 uIU/mL (0.32-4.0)
== END 2023-08-28 09:39 | disposition home or self-care (01) ==
LOC: HO.WFDLDS 09:38
PROVIDERS: Visit Provider Nurse Practitioner Family
DX: Z00.00 Encounter for general adult medical examination without abnormal findings (principal); E11.9 Type 2 diabetes mellitus without complications; E03.9 Hypothyroidism, unspecified
CPT/HCPCS: 36415; 80061; 81003; 84443

== ENCOUNTER 2023-09-04 09:36 | Outpatient (AMB) | payer OTHER, SELFPAY ==
[2023-09-04 09:39] VITALS: BP 166/80; PULSE 78; RESP 14; TEMP 36.4; O2SAT 98; BMI 27.7
--- NOTE | 2023-09-04 09:39 | MHC.PC.OV ---
Vital Signs 09/04/23 09:39 Height 5 ft 1 in Weight 146 lb 6 oz BMI 27.7 BP 166/80 H Blood Pressure Location Rt brachial Position Sitting Respiration 14 Pulse 78 Pulse Source Pulse Oximeter Temp 97.5 F Temp Source Temporal Artery Scan Pulse Oximetry (%) 98 Oxygen Delivery Method Room Air Intake Visit Reasons: HTN, DM, hypothyroid Orthodontic Treatment Coordinator Required: No Accompanied by: Self / Same As Patient Allergies No Known Allergies Allergy (Verified 09/04/23 10:20) Medication List - Last Reconciled 09/04/23 by Libby Zhao CNP blood sugar diagnostic ([employer] Ultra Test strips) POC testing TID blood-glucose meter ([employer] Ultra2 Meter) POC testing TID cholecalciferol (vitamin D3) 50 mcg PO DAILY 90 days esomeprazole magnesium (Nexium) 40 mg PO DAILY ketorolac 0.5% 1 drp ophthalmic (eye) DAILY lancets ([employer] Delica Plus Lancet) POC testing TID levothyroxine 25 mcg PO DAILY 90 days lisinopril 20 mg PO DAILY 90 days lisinopril 10 mg PO DAILY 90 days metformin 1,000 mg PO BID 90 days rosuvastatin 20 mg PO DAILY 90 days Tobacco use date assessed: 03/31/23 Last assessed Fall Risk: 09/04/23 Dental Screening Dental Screen Date: 06/09/23 HPI HPI Comments History of Present Illness Details 68-year-old [place] presents for hypertension, diabetes, and hypothyroidism follow-up She admits to taking her medications as prescribed without adverse reactions He admits to making healthy dietary changes including low cab and low salt She offers no complaints and denies acute symptoms at this time She brought a home BP log in the for 3 days last week. Her BP range between 140-150/71/82 She notes that she has been taking Lisinopril 10mg (3 tabs daily) instead of 20mg daily and 30mg daily. She notes that she usually take her Lisinopril at night Interpretation by professional business objects report developer via electronic tablet PENDING S[facility] TO [facility] Medical History History of Ellsworth's esophagus Diabetes Arthritis Arteriosclerosis Ellsworth esophagus Acid reflux Thyroid disease High blood pressure Surgical History Hx of section History of appendectomy Hx of colonoscopy History of esophagogastroduodenoscopy (EGD) H/O cataract removal with insertion of prosthetic lens Family History Mother Diabetes Father Asthma Family/Other Diabetes Thyroid disease Sister History of breast cancer, Onset Age: 56 Social History Housing: Apartment Patient Tobacco Use Status: Former Tobacco user e-Cigarette/Vaping Use: Never Used service: No Current occupational status: unemployed Cognitive needs: No Hearing needs: No Vision needs: No Questionnaire Thrive Questionnaire Date Thrive assessed: 12/22/22 SANTANA-7 AMB Questionnaire SANTANA-7 Date SANTANA - 7 assessed: 12/22/22 Source: Developed by Drs. Dean Rojo, Conchita Coleman, Tyrone Colin and colleagues, with an educational colt from [employer]. Review of Systems Const Details: Const Denies chills, Denies fatigue, Denies fever(s), Denies headache(s) and Denies weakness ENT Denies dizziness and Denies headache(s) Card Denies chest pain, Denies lightheadedness, Denies dyspnea and Denies other (Palpitations) Resp Denies cough, Denies dyspnea, Denies wheezing and Denies other ( shortness of breath) GI Denies abdominal pain, Denies melena, Denies hematochezia, Denies change in bowel habits, Denies dyspepsia and Denies nausea Denies hematuria and Denies dysuria Musc Denies abnormal gait, Denies myalgias, Denies arthralgias, Denies numbness and Denies tingling Skin/Breast Denies rash, Denies unusual bruising and Denies wounds Neuro Denies abnormal gait, Denies dizziness, Denies headache(s), Denies memory loss, Denies numbness, Denies Sensory deficit (Neuro), Denies tingling and Denies weakness Psych Denies anxiety, Denies depression, Denies memory loss Endo Denies cold intolerance, Denies fatigue, Denies heat intolerance, Denies polydipsia and Denies polyuria Aller/Immun Denies wheezing Physical exam (Primary Care) Vital Signs: Last Vital Signs Temp 97.5 F 09/04/23 09:39 Pulse 78 09/04/23 09:39 Resp 14 09/04/23 09:39 BP 166/80 H 09/04/23 09:39 Pulse Ox 98 09/04/23 09:39 Oxygen Delivery Method Room Air 09/04/23 09:39 BMI result Body Mass Index 27.7 Tobacco/Smoking Status: Tobacco use Status Tobacco use date assessed 03/31/23 09/04/23 09:39 Patient Tobacco Use Status Former Tobacco user 09/04/23 09:39 e-Cigarette/Vaping Use Never Used 09/04/23 09:39 Thrive Assessment: Date of Thrive Assessment Date Thrive assessed 12/22/22 09/04/23 09:39 Const Other: General: no acute distress and well developed Nutritional Appearance: well nourished Orientation/consciousness: patient oriented x3 HENMT Head: Yes normocephalic and Yes atraumatic Eyes General: appearance normal, both eyes and all related structures Pupils: Equal, round and reactive pupils present EOM: EOMs intact bilaterally Resp Effort & Inspection: normal respiratory effort Auscultation: clear to auscultation bilaterally Cardio Rate: regular rate Rhythm: regular rhythm Heart sounds: S1 normal heart sound present, S2 normal heart sound present, no gallops, no murmurs and no rubs GI Palpation (GI): No Abdominal aortic bruit present, Soft to palpation, nontender, No hepatosplenomegaly present and No Rebound tenderness present Auscultation: normal bowel sounds General: Yes no CVA tenderness Back/Spine/Pelvis Back: no CVA tenderness Cervical Spine: cervical ROM normal and No Cervical spine tenderness Thoracic/Lumbar Spine: thoraco-lumbar ROM normal, No pain with thoraco-lumbar ROM, No thoracic spinal tenderness and No lumbar spinal tenderness Extrem General: Yes normal to inspection, No edema and No calf tenderness Skin General: warm and dry. Normal skin color. Normal skin turgor Neuro General: patient oriented x3, gait normal and no focal neuro deficit Cranial nerves: Yes Equal, round and reactive pupils present Cognition (Neuro): normal cognition Gait exam (Neuro): Normal gait present Sensory Exam: No Sensory deficit (Neuro) Psych Appearance: grossly normal Affect: normal affect Attitude: cooperative Thought process: Normal thought process present Results AMB Hemoglobin A1c AMB Hemoglobin A1c 7.1 % Last Edit by JOHANNE Perez on 09/04/23 10:01 Results Reviewed Results Reviewed: Laboratory Last Values Hgb A1c (Clinic) 7.1 % (4.0-6.0) H 09/04/23 09:58 Assessment and Plan Assessment & Plan (1) Diabetes mellitus: Code(s): E11.9 - Type 2 diabetes mellitus without complications Plan: A1c today is 7.1%, slightly above goal of less than 7.0%. Previous A1c was 7.7% Recent LDL level was 50 Continue to take metformin 1000 mg twice daily and rosuvastatin 20 mg daily99 ADA diet and routine exercise encouraged Will check A1c in 3 months Verbalized understanding and agreed with the treatment plan (2) Essential hypertension: Code(s): I10 - Essential (primary) hypertension Plan: Blood pressure is 166/80, within goal of less than 130/80 Her home BP x 3 days last week range between 140-150/71/82 Will increase lisinopril to 40 mg daily. Advised to take as prescribed Low-sodium diet encouraged Continue to check blood pressure daily, record readings, and bring to next appointment Follow-up in 1 week or sooner with symptoms such as lightheadedness/dizziness Verbalized understanding and agreed with the plan (3) Hypothyroidism: Code(s): E03.9 - Hypothyroidism, unspecified Plan: Recent TSH level is normal, 1.75 Continue to take levothyroxine 20 mcg daily Will continue to monitor Verbalized understanding and agreed with the plan Orders: Orders AMB Hemoglobin A1c Today E11.9 - Type 2 diabetes mellitus without complications Medications: New lisinopril 40 mg PO DAILY 90 days 90 tabs 1RF Discontinued lisinopril Discontinued Reason: Doctor's Order 20 mg PO DAILY 90 days 90 tabs 1RF lisinopril Take with Lisinopril 20mg to equal 30mg daily Discontinued Reason: Doctor's Order 10 mg PO DAILY 90 days 90 tabs 1RF Coding Level of Care Code Est Pt Level 4 (83000) Complex EM visit Add On G2211 Diagnoses Diabetes mellitus E11.9 Essential hypertension I10 Hypothyroidism E03.9
== END 2023-09-04 10:45 | disposition home or self-care (01) ==
PROVIDERS: PCP Nurse Practitioner Family; Visit Provider Nurse Practitioner Family
DX: E11.9 Type 2 diabetes mellitus without complications (principal); I10 Essential (primary) hypertension; E03.9 Hypothyroidism, unspecified
CPT/HCPCS: 83036; 99214; G2211

== ENCOUNTER 2023-09-11 11:30 | Outpatient (AMB) | payer OTHER, SELFPAY ==
--- NOTE | 2023-09-11 11:32 | MHC.PC.OV ---
"Vital Signs 09/11/23 11:34 09/11/23 12:09 Height 5 ft 1 in Weight 144 lb BMI 27.2 BP 134/70 128/78 Blood Pressure Location Rt brachial Rt brachial Position Sitting Sitting Respiration 14 Pulse 77 Pulse Source Pulse Oximeter Temp 97.7 F Temp Source Temporal Artery Scan Pulse Oximetry (%) 99 Oxygen Delivery Method Room Air Intake Visit Reasons: HTN follow up Food Taster Required: No Accompanied by: Self / Same As Patient Allergies No Known Allergies Allergy (Verified 09/11/23 12:04) Medication List - Last Reconciled 09/11/23 by Libby Zhao CNP blood sugar diagnostic ([employer] Ultra Test strips) POC testing TID blood-glucose meter ([employer] Ultra2 Meter) POC testing TID cholecalciferol (vitamin D3) 50 mcg PO DAILY 90 days esomeprazole magnesium (Nexium) 40 mg PO DAILY ketorolac 0.5% 1 drp ophthalmic (eye) DAILY lancets ([employer] Delica Plus Lancet) POC testing TID levothyroxine 25 mcg PO DAILY 90 days lisinopril 40 mg PO DAILY 90 days metformin 1,000 mg PO BID 90 days rosuvastatin 20 mg PO DAILY 90 days Tobacco use date assessed: 03/31/23 Last assessed Fall Risk: 09/11/23 Dental Screening Dental Screen Date: 06/09/23 HPI HPI Comments History of Present Illness Details 68-year-old Italian-speaking female presents for hypertension follow-up She admits to taking her medications as prescribed without adverse reactions Her previous blood pressure was 166/80. Lisinopril was increased to 40 mg daily She offers no complaints and denies acute symptoms at this time Interpretation by a professional certified tower climber via electronic tablet [facility] Medical History History of Ellsworth's esophagus Diabetes Arthritis Arteriosclerosis Ellsworth esophagus Acid reflux Thyroid disease High blood pressure Surgical History Hx of section History of appendectomy Hx of colonoscopy History of esophagogastroduodenoscopy (EGD) H/O cataract removal with insertion of prosthetic lens Family History Mother Diabetes Father Asthma Family/Other Diabetes Thyroid disease Sister History of breast cancer, Onset Age: 56 Social History Housing: Apartment Patient Tobacco Use Status: Former Tobacco user e-Cigarette/Vaping Use: Never Used service: No Current occupational status: unemployed Cognitive needs: No Hearing needs: No Vision needs: No Questionnaire Thrive Questionnaire Date Thrive assessed: 12/22/22 SANTANA-7 AMB Questionnaire SANTANA-7 Date SANTANA - 7 assessed: 12/22/22 Source: Developed by Drs. Dean Rojo, Conchita Coleman, Tyrone Colin and colleagues, with an educational colt from [employer]. Review of Systems Const Details: Const Denies chills, Denies fatigue, Denies fever(s), Denies headache(s) and Denies weakness ENT Denies dizziness and Denies headache(s) Card Denies chest pain, Denies lightheadedness, Denies dyspnea and Denies other (Palpitations) Resp Denies cough, Denies dyspnea, Denies wheezing and Denies other ( shortness of breath) GI Denies abdominal pain, Denies melena, Denies hematochezia, Denies change in bowel habits, Denies dyspepsia and Denies nausea Denies hematuria and Denies dysuria Musc Denies abnormal gait, Denies myalgias, Denies arthralgias, Denies numbness and Denies tingling Skin/Breast Denies rash, Denies unusual bruising and Denies wounds Neuro Denies abnormal gait, Denies dizziness, Denies headache(s), Denies memory loss, Denies numbness, Denies Sensory deficit (Neuro), Denies tingling and Denies weakness Psych Denies anxiety, Denies depression, Denies memory loss Endo Denies cold intolerance, Denies fatigue, Denies heat intolerance, Denies polydipsia and Denies polyuria Aller/Immun Denies wheezing Physical exam (Primary Care) Vital Signs: Last Vital Signs Temp 97.7 F 09/11/23 11:34 Pulse 77 09/11/23 11:34 Resp 14 09/11/23 11:34 BP 134/70 09/11/23 11:34 Pulse Ox 99 09/11/23 11:34 Oxygen Delivery Method Room Air 09/11/23 11:34 BMI result Body Mass Index 27.2 Tobacco/Smoking Status: Tobacco use Status Tobacco use date assessed 03/31/23 09/11/23 11:33 Patient Tobacco Use Status Former Tobacco user 09/11/23 11:33 e-Cigarette/Vaping Use Never Used 09/11/23 11:33 Thrive Assessment: Date of Thrive Assessment Date Thrive assessed 12/22/22 09/11/23 11:33 Const Other: General: no acute distress and well developed Nutritional Appearance: well nourished Orientation/consciousness: patient oriented x3 HENMT Head: Yes normocephalic and Yes atraumatic Eyes General: appearance normal, both eyes and all related structures Pupils: Equal, round and reactive pupils present EOM: EOMs intact bilaterally Resp Effort & Inspection: normal respiratory effort Auscultation: clear to auscultation bilaterally Cardio Rate: regular rate Rhythm: regular rhythm Heart sounds: S1 normal heart sound present, S2 normal heart sound present, no gallops, no murmurs and no rubs GI Palpation (GI): No Abdominal aortic bruit present, Soft to palpation, nontender, No hepatosplenomegaly present and No Rebound tenderness present Auscultation: normal bowel sounds General: Yes no CVA tenderness Back/Spine/Pelvis Back: no CVA tenderness Cervical Spine: cervical ROM normal and No Cervical spine tenderness Thoracic/Lumbar Spine: thoraco-lumbar ROM normal, No pain with thoraco-lumbar ROM, No thoracic spinal tenderness and No lumbar spinal tenderness Extrem General: Yes normal to inspection, No edema and No calf tenderness Skin General: warm and dry. Normal skin color. Normal skin turgor Neuro General: patient oriented x3, gait normal and no focal neuro deficit Cranial nerves: Yes Equal, round and reactive pupils present Cognition (Neuro): normal cognition Gait exam (Neuro): Normal gait present Sensory Exam: No Sensory deficit (Neuro) Psych Appearance: grossly normal Affect: normal affect Attitude: cooperative Thought process: Normal thought process present Assessment and Plan Assessment & Plan (1) Essential hypertension: Code(s): I10 - Essential (primary) hypertension Plan: Resting blood pressure is 120/78, within goal of less than 130/80 Continue current treatment regimen Low-sodium diet encouraged Follow-up in 2 months or sooner with symptoms or concerns Verbalized understanding and agreed with the treatment plan Coding Level of Care Code Est Pt Level 3 (96517) Diagnoses Essential hypertension I10"
[2023-09-11 11:34] VITALS: BP 134/70; PULSE 77; RESP 14; TEMP 36.5; O2SAT 99; BMI 27.2
[2023-09-11 12:09] VITALS: BP 128/78
== END 2023-09-11 12:16 | disposition home or self-care (01) ==
PROVIDERS: PCP Nurse Practitioner Family; Visit Provider Nurse Practitioner Family
DX: I10 Essential (primary) hypertension (principal)
CPT/HCPCS: 99213

== ENCOUNTER 2023-10-03 10:45 | Outpatient (AMB) | payer OTHER, SELFPAY ==
--- NOTE | 2023-10-03 10:55 | A.OFFVIS_ITS ---
Vital Signs 10/03/23 11:01 Height 5 ft 1 in Weight 142 lb 6.698 oz BMI 26.9 BP 136/62 Blood Pressure Location Lt brachial Position Sitting Pulse 76 Pulse Source Pulse Oximeter Pulse Oximetry (%) 99 Oxygen Delivery Method Room Air Intake Visit Reasons: 3 month follow up Intake Note: Priyanka presents in office today for a scheduled 3 mos FUV. CC; Pt was started on nexium at last visit. Pt reports that they have been doing well since their last visit and that they have been responding well to the nexium. Pt states that they are doing OK and have not developed and new concerns or sx since their last visit. Pilot Boat Captain Required: Yes Pilot Boat Captain Name: [id number] Mateus Allen Allergies No Known Allergies Allergy (Verified 10/03/23 11:01) HPI HPI 3 month follow up: Details: Colon cancer screening Acid reflux History of Ellsworth's esophagus Plan Normal colonoscopy. , asymptomatic colonoscopy screening in 7-10 years. Sooner if clinically necessary. No Barretts found on biopsy. Patient would like to continue Nexium as her symptoms are better. Patient reports that when she stops Nexium her symptoms return. Patient can take that for the next couple months, next visit we might consider decreasing the dose or slowly weaning her off. Discussed with patient avoiding dietary triggers and late night snacking. Staying upright for minimum 3 hours after meals discussed with patient. Patient is agreeable to current plan of care and verbalizes understanding of instructions. She was given the opportunity to ask questions and all questions answered. ? Thank you for allowing me to participate in her care Medications Refilled esomeprazole magnesium (Nexium) 40 mg PO DAILY 90 caps 1RF K21.9 Discontinued lancets ([employer] UltraSoft 2 Lancet) Discontinued Reason: Doctor's Order POC testing TID 100 ea 4RF TODAY'S VISIT: Patient is here today for follow-up. Patient reports that she has been doing well after starting Nexium. Patient states that her symptoms are suppressed. Patient denies any dyspepsia, dysphagia or odynophagia. Denies any nausea or vomiting. Patient reports to have good appetite. Patient also change her diet. Denies melena, hematochezia. Denies any GI concerning symptoms today. PFSH Medical History History of Ellsworth's esophagus Diabetes Arthritis Arteriosclerosis Ellsworth esophagus Acid reflux Thyroid disease High blood pressure Surgical History Hx of section History of appendectomy Hx of colonoscopy History of esophagogastroduodenoscopy (EGD) H/O cataract removal with insertion of prosthetic lens Family History Mother Diabetes Father Asthma Family/Other Diabetes Thyroid disease Sister History of breast cancer, Onset Age: 56 Social History Housing: Apartment Patient Tobacco Use Status: Former Tobacco user e-Cigarette/Vaping Use: Never Used service: No Current occupational status: unemployed Cognitive needs: No Hearing needs: No Vision needs: No Review of Systems Const Denies weight gain and Denies weight loss ENT Reports no additional complaints, Denies dysphagia and Denies odynophagia Card Reports no additional complaints Resp Reports no additional complaints GI Denies abdominal pain, Denies belching, Denies melena, Denies bloating, Denies change in bowel habits, Denies dysphagia, Denies excessive flatus, Denies dyspepsia, Denies heartburn, Denies diarrhea, Denies loose stools, Denies nausea, Denies odynophagia and Denies vomiting Musc Reports no additional complaints Neuro Reports no additional complaints Psych Reports no additional complaints Endo Reports no additional complaints Physical Exam Vital Signs: Last Vital Signs Pulse 76 10/03/23 11:01 BP 136/62 10/03/23 11:01 Pulse Ox 99 10/03/23 11:01 Oxygen Delivery Method Room Air 10/03/23 11:01 BMI result Body Mass Index 26.9 Const General: healthy appearing, no acute distress and well developed Nutritional Appearance: well nourished Orientation/consciousness: patient oriented x3 Resp Effort & Inspection: normal respiratory effort, able to speak in complete sentences, no tracheal deviation and symmetric chest movement Auscultation: clear to auscultation bilaterally Cardio Rate: regular rate GI Inspection: Yes normal to inspection and No distended Palpation (GI): Soft to palpation, not firm, nontender and No hepatosplenomegaly present Auscultation: normal bowel sounds General: Yes no CVA tenderness Back/Spine/Pelvis Back: no CVA tenderness Skin General skin exam: elasticity normal, turgor normal and dry skin Neuro General: patient oriented x3 Psych Appearance: grossly normal Mental Status: mental status grossly normal Assessment & Plan Assessment & Plan (1) Acid reflux: Code(s): K21.9 - Gastro-esophageal reflux disease without esophagitis Category: Medical Qualifiers: Esophagitis presence: esophagitis presence not specified Qualified Code(s): K21.9 - Gastro-esophageal reflux disease without esophagitis (2) History of Ellsworth's esophagus: Code(s): Z87.19 - Personal history of other diseases of the digestive system Category: Medical Plan Continue Nexium. Avoid dietary triggers and late night snacking. Staying upright for minimum 3 hours after meals discussed with patient. Patient will follow-up in 6 months, sooner on as needed basis. She is agreeable to this plan and verbalizes understanding of instructions. She was given the opportunity to ask questions and all questions answered. Thank you for allowing me to participate in her care Coding Level of Care Code Est Pt Level 3 (15294) Diagnoses Gastroesophageal reflux disease, unspecified whether esophagitis present K21.9 Esophagitis presence: esophagitis presence not specified History of Ellsworth's esophagus Z87.19 Time Spent (min) 25 Comment 15 minutes spent with patient and additional 10 minutes spent reviewing her records
[2023-10-03 11:01] VITALS: BP 136/62; PULSE 76; O2SAT 99; BMI 26.9
== END 2023-10-03 11:49 | disposition home or self-care (01) ==
PROVIDERS: PCP Nurse Practitioner Family; Visit Provider Nurse Practitioner Family
DX: K21.9 Gastro-esophageal reflux disease without esophagitis (principal); Z87.19 Personal history of other diseases of the digestive system
CPT/HCPCS: 99213

== ENCOUNTER → 2023-10-03 10:45 | Outpatient (BNVA) | payer OTHER, SELFPAY | PROVIDERS: PCP Nurse Practitioner Family; Visit Provider Nurse Practitioner Family | DX: K21.9 Gastro-esophageal reflux disease without esophagitis (principal); Z87.19 Personal history of other diseases of the digestive system | CPT/HCPCS: 99212 ==

== ENCOUNTER 2023-11-15 10:36 | Outpatient (AMB) | payer OTHER, SELFPAY ==
--- NOTE | 2023-11-15 11:07 | MHC.PC.OV ---
Vital Signs 11/15/23 11:13 11/15/23 11:32 Height 5 ft 1 in Weight 142 lb BMI 26.8 BP 148/70 H 140/76 H Blood Pressure Location Lt brachial Rt brachial Position Sitting Sitting Respiration 16 Pulse 73 Pulse Source Pulse Oximeter Temp 97.9 F Temp Source Oral Pulse Oximetry (%) 95 Oxygen Delivery Method Room Air Intake Visit Reasons: fu htn Intake Note: patient here to follow up on HTN [employer] Supervisor Required: Yes Accompanied by: Family/Other Is last menstrual period known: No Post menopausal: No Patient : No Allergies No Known Allergies Allergy (Verified 11/15/23 11:26) Medication List - Last Reconciled 11/15/23 by Libby Zhao CNP blood sugar diagnostic (Takkleuch Ultra Test strips) POC testing TID blood-glucose meter (Takkleuch Ultra2 Meter) POC testing TID cholecalciferol (vitamin D3) 50 mcg PO DAILY 90 days esomeprazole magnesium (Nexium) 40 mg PO DAILY ketorolac 0.5% 1 drp ophthalmic (eye) DAILY lancets (Agile Delica Plus Lancet) POC testing TID levothyroxine 25 mcg PO DAILY 90 days lisinopril 40 mg PO DAILY 90 days metformin 1,000 mg PO BID 90 days rosuvastatin 20 mg PO DAILY 90 days Tobacco use date assessed: 11/15/23 Fall risk assessment: No Falls in past year Last assessed Fall Risk: 11/15/23 Dental Screening Dental Screen Date: 11/15/23 Did you have a dental visit in the last 12 months?: No Did you have a dental problem in the last 6 months where you did not have access to dental care?: No Was dental information given to patient?: Patient has dentist HPI HPI Comments History of Present Illness Details 68-year-old female, accompanied by her son-in-law, presents for hypertension follow-up She admits to taking her medications as prescribed without adverse reactions She offers no complaints and denies acute symptoms at this time [facility] Medical History History of Ellsworth's esophagus Diabetes Arthritis Arteriosclerosis Ellsworth esophagus Acid reflux Thyroid disease High blood pressure Surgical History Hx of section History of appendectomy Hx of colonoscopy History of esophagogastroduodenoscopy (EGD) H/O cataract removal with insertion of prosthetic lens Family History Mother Diabetes Father Asthma Family/Other Diabetes Thyroid disease Sister History of breast cancer, Onset Age: 56 Social History Housing: Apartment Patient Tobacco Use Status: Former Tobacco user e-Cigarette/Vaping Use: Never Used Patient : No service: No Current occupational status: unemployed Cognitive needs: No Hearing needs: No Vision needs: No Questionnaire Thrive Questionnaire Date Thrive assessed: 12/22/22 SANTANA-7 AMB Questionnaire SANTANA-7 Date SANTANA - 7 assessed: 12/22/22 Source: Developed by Drs. Dean Rojo, Conchita Cloeman, Tyrone Colin and colleagues, with an educational colt from [employer]. Review of Systems Const Details: Const Denies chills, Denies fatigue, Denies fever(s), Denies headache(s) and Denies weakness ENT Denies dizziness and Denies headache(s) Card Denies chest pain, Denies lightheadedness, Denies dyspnea and Denies other (Palpitations) Resp Denies cough, Denies dyspnea, Denies wheezing and Denies other ( shortness of breath) GI Denies abdominal pain, Denies melena, Denies hematochezia, Denies change in bowel habits, Denies dyspepsia and Denies nausea Denies hematuria and Denies dysuria Musc Denies abnormal gait, Denies myalgias, Denies arthralgias, Denies numbness and Denies tingling Skin/Breast Denies rash, Denies unusual bruising and Denies wounds Neuro Denies abnormal gait, Denies dizziness, Denies headache(s), Denies memory loss, Denies numbness, Denies Sensory deficit (Neuro), Denies tingling and Denies weakness Psych Denies anxiety, Denies depression, Denies memory loss Endo Denies cold intolerance, Denies fatigue, Denies heat intolerance, Denies polydipsia and Denies polyuria Aller/Immun Denies wheezing Physical exam (Primary Care) Tobacco/Smoking Status: Tobacco use Status Tobacco use date assessed 03/31/23 11/15/23 11:10 Patient Tobacco Use Status Former Tobacco user 11/15/23 11:10 e-Cigarette/Vaping Use Never Used 11/15/23 11:10 Thrive Assessment: Date of Thrive Assessment Date Thrive assessed 12/22/22 11/15/23 11:10 Const Other: General: no acute distress and well developed Nutritional Appearance: well nourished Orientation/consciousness: patient oriented x3 HENMT Head: Yes normocephalic and Yes atraumatic Eyes General: appearance normal, both eyes and all related structures Pupils: Equal, round and reactive pupils present EOM: EOMs intact bilaterally Resp Effort & Inspection: normal respiratory effort Auscultation: clear to auscultation bilaterally Cardio Rate: regular rate Rhythm: regular rhythm Heart sounds: S1 normal heart sound present, S2 normal heart sound present, no gallops, no murmurs and no rubs GI Palpation (GI): No Abdominal aortic bruit present, Soft to palpation, nontender, No hepatosplenomegaly present and No Rebound tenderness present Auscultation: normal bowel sounds General: Yes no CVA tenderness Back/Spine/Pelvis Back: no CVA tenderness Cervical Spine: cervical ROM normal and No Cervical spine tenderness Thoracic/Lumbar Spine: thoraco-lumbar ROM normal, No pain with thoraco-lumbar ROM, No thoracic spinal tenderness and No lumbar spinal tenderness Extrem General: Yes normal to inspection, No edema and No calf tenderness Skin General: warm and dry. Normal skin color. Normal skin turgor Neuro General: patient oriented x3, gait normal and no focal neuro deficit Cranial nerves: Yes Equal, round and reactive pupils present Cognition (Neuro): normal cognition Gait exam (Neuro): Normal gait present Sensory Exam: No Sensory deficit (Neuro) Psych Appearance: grossly normal Affect: normal affect Attitude: cooperative Thought process: Normal thought process present Assessment and Plan Assessment & Plan (1) Essential hypertension: Code(s): I10 - Essential (primary) hypertension Plan: Resting blood pressure is 140/76, above goal of less than 130/80 Will start amlodipine 2.5 mg daily. Advised to take as prescribed. Instructed on the risks, benefits, and potential adverse reactions of the medications Continue to take lisinopril 40 mg daily Low-sodium diet encouraged Follow-up in 1 month for hypertension and diabetes or sooner with symptoms or concerns Verbalized understanding and agreed with the treatment plan Medications: New amlodipine 2.5 mg PO DAILY 30 days 30 tabs 3RF Coding Level of Care Code Est Pt Level 3 (28059) Diagnoses Essential hypertension I10
[2023-11-15 11:13] VITALS: BP 148/70; PULSE 73; RESP 16; TEMP 36.6; O2SAT 95; BMI 26.8
[2023-11-15 11:32] VITALS: BP 140/76
== END 2023-11-15 11:45 | disposition home or self-care (01) ==
PROVIDERS: PCP Nurse Practitioner Family; Visit Provider Nurse Practitioner Family
DX: I10 Essential (primary) hypertension (principal)
CPT/HCPCS: 99213

== ENCOUNTER 2023-12-20 11:43 | Outpatient (AMB) | payer OTHER, SELFPAY ==
--- NOTE | 2023-12-20 11:46 | MHC.PC.OV ---
Vital Signs 12/20/23 11:57 Height 5 ft 1 in Weight 140 lb 2 oz BMI 26.5 BP 130/74 Blood Pressure Location Rt brachial Position Sitting Respiration 16 Pulse 70 Pulse Source Pulse Oximeter Temp 98.2 F Temp Source Oral Pulse Oximetry (%) 99 Oxygen Delivery Method Room Air Intake Visit Reasons: 1 mos HTN, DM Intake Note: patient here to follow up on HTN and DM Is last menstrual period known: No Post menopausal: No Patient : No Allergies No Known Allergies Allergy (Verified 12/20/23 11:56) Tobacco use date assessed: 12/20/23 Fall risk assessment: No Falls in past year Last assessed Fall Risk: 12/20/23 Dental Screening Dental Screen Date: 12/20/23 Did you have a dental visit in the last 12 months?: Yes Did you have a dental problem in the last 6 months where you did not have access to dental care?: No Was dental information given to patient?: Patient has dentist HPI HPI Comments History of Present Illness Details 68-year-old Greenlandic-speaking female, accompanied by her daughter, presents for hypertension and diabetes follow-up She admits to taking her medications as prescribed without adverse reactions She admits to making healthy lifestyle changes, including low-sodium diet, low carbs, and exercise She offers no complaints and denies acute symptoms at this time Interpretation by the patient's daughter per patient's preference PFSH Medical History History of Ellsworth's esophagus Diabetes Arthritis Arteriosclerosis Ellsworth esophagus Acid reflux Thyroid disease High blood pressure Surgical History Hx of section History of appendectomy Hx of colonoscopy History of esophagogastroduodenoscopy (EGD) H/O cataract removal with insertion of prosthetic lens Family History Mother Diabetes Father Asthma Family/Other Diabetes Thyroid disease Sister History of breast cancer, Onset Age: 56 Social History Housing: Apartment Patient Tobacco Use Status: Former Tobacco user e-Cigarette/Vaping Use: Never Used service: No Current occupational status: unemployed Cognitive needs: No Hearing needs: No Vision needs: No Questionnaire Thrive Questionnaire Date Thrive assessed: 12/22/22 AUDIT C Alcohol Use Questionnaire (AUDIT-C) 3. How often do you have six or more drinks on one occasion?: Never Total Score: 0 SANTANA-7 AMB Questionnaire SANTANA-7 Date SANTANA - 7 assessed: 12/22/22 Source: Developed by Drs. Dean Rojo, Conchita Coleman, Tyrone Colin and colleagues, with an educational colt from [email or web address]. Review of Systems Const Details: Const Denies chills, Denies fatigue, Denies fever(s), Denies headache(s) and Denies weakness ENT Denies dizziness and Denies headache(s) Card Denies chest pain, Denies lightheadedness, Denies dyspnea and Denies other (Palpitations) Resp Denies cough, Denies dyspnea, Denies wheezing and Denies other ( shortness of breath) GI Denies abdominal pain, Denies melena, Denies hematochezia, Denies change in bowel habits, Denies dyspepsia and Denies nausea Denies hematuria and Denies dysuria Musc Denies abnormal gait, Denies myalgias, Denies arthralgias, Denies numbness and Denies tingling Skin/Breast Denies rash, Denies unusual bruising and Denies wounds Neuro Denies abnormal gait, Denies dizziness, Denies headache(s), Denies memory loss, Denies numbness, Denies Sensory deficit (Neuro), Denies tingling and Denies weakness Psych Denies anxiety, Denies depression, Denies memory loss Endo Denies cold intolerance, Denies fatigue, Denies heat intolerance, Denies polydipsia and Denies polyuria Aller/Immun Denies wheezing Physical exam (Primary Care) Vital Signs: Last Vital Signs Temp 98.2 F 12/20/23 11:57 Pulse 70 12/20/23 11:57 Resp 16 12/20/23 11:57 BP 130/74 12/20/23 11:57 Pulse Ox 99 12/20/23 11:57 Oxygen Delivery Method Room Air 12/20/23 11:57 BMI result Body Mass Index 26.5 Tobacco/Smoking Status: Tobacco use Status Tobacco use date assessed 12/20/23 12/20/23 12:01 Patient Tobacco Use Status Former Tobacco user 12/20/23 11:48 e-Cigarette/Vaping Use Never Used 12/20/23 11:48 Thrive Assessment: Date of Thrive Assessment Date Thrive assessed 12/22/22 12/20/23 11:48 Const Other: General: no acute distress and well developed Nutritional Appearance: well nourished Orientation/consciousness: patient oriented x3 [facility] Head: Yes normocephalic and Yes atraumatic Eyes General: appearance normal, both eyes and all related structures Pupils: Equal, round and reactive pupils present EOM: EOMs intact bilaterally Resp Effort & Inspection: normal respiratory effort Auscultation: clear to auscultation bilaterally Cardio Rate: regular rate Rhythm: regular rhythm Heart sounds: S1 normal heart sound present, S2 normal heart sound present, no gallops, no murmurs and no rubs GI Palpation (GI): No Abdominal aortic bruit present, Soft to palpation, nontender, No hepatosplenomegaly present and No Rebound tenderness present Auscultation: normal bowel sounds General: Yes no CVA tenderness Back/Spine/Pelvis Back: no CVA tenderness Extrem General: Yes normal to inspection, No edema and No calf tenderness Skin General: warm and dry. Normal skin color. Normal skin turgor Neuro General: patient oriented x3, gait normal and no focal neuro deficit Cranial nerves: Yes Equal, round and reactive pupils present Cognition (Neuro): normal cognition Gait exam (Neuro): Normal gait present Sensory Exam: No Sensory deficit (Neuro) Psych Appearance: grossly normal Affect: normal affect Attitude: cooperative Thought process: Normal thought process present Results AMB Hemoglobin A1c AMB Hemoglobin A1c 7.5 % Last Edit by Danica Chanel MA on 12/20/23 12:13 Coding Level of Care Code Est Pt Level 3 (53508) Diagnoses Essential hypertension I10 Diabetes mellitus E11.9 Laboratory tests ordered as part of a complete physical exam (CPE) Z00.00 Assessment & Plan Assessment & Plan (1) Essential hypertension: Code(s): I10 - Essential (primary) hypertension Category: Medical Plan: Resting blood pressure is 130/74, slightly above goal of less than 130/80 Continue current treatment regimen Low-sodium diet encouraged Advised to get lab work done a few days before her next visit Return sooner with symptoms or concerns Verbalized understanding and agreed with the plan (2) Diabetes mellitus: Code(s): E11.9 - Type 2 diabetes mellitus without complications Category: Medical Plan: A1c is 7.5%, above goal of less than 7.0%. Previous A1c was 7.1% Will start glipizide 2.5 mg daily. Advised to take as prescribed. Instructed on the risks, benefits, and potential adverse reactions of the medications. Encouraged to report hypoglycemic episodes Continue to take metformin as prescribed ADA diet and routine exercise encouraged Will recheck A1c in 3 months Verbalized understanding and agreed with the treatment (3) Laboratory tests ordered as part of a complete physical exam (CPE): Code(s): Z00.00 - Encounter for general adult medical examination without abnormal findings Category: Medical Plan: Fasting labs ordered in preparation of a complete physical exam. Advised to fast for at least 10 hours before getting labs drawn. May drink water Verbalized understanding and agreed with treatment plan. Orders: Orders AMB Hemoglobin A1c Today Z13.9 - Encounter for screening, unspecified Comprehensive Benedict. Panel Fast Today Z00.00 - Encounter for general adult medical examination without abnormal findings Lipid Panel Today Z00.00 - Encounter for general adult medical examination without abnormal findings TSH reflex Free T4 Today Z00.00 - Encounter for general adult medical examination without abnormal findings UA CC w/rflx Micro + Cult Today Z00.00 - Encounter for general adult medical examination without abnormal findings Complete Blood Count Auto Diff Today Z00.00 - Encounter for general adult medical examination without abnormal findings Microalbumin, Random (w Creat) Today Z00.00 - Encounter for general adult medical examination without abnormal findings Medications: New glipizide ER 2.5 mg PO DAILY 30 days 30 tabs 3RF
[2023-12-20 11:57] VITALS: BP 130/74; PULSE 70; RESP 16; TEMP 36.8; O2SAT 99; BMI 26.5
== END 2023-12-20 12:33 | disposition home or self-care (01) ==
PROVIDERS: PCP Nurse Practitioner Family; Visit Provider Nurse Practitioner Family
DX: I10 Essential (primary) hypertension (principal); E11.9 Type 2 diabetes mellitus without complications; Z00.00 Encounter for general adult medical examination without abnormal findings; Z13.9 Encounter for screening, unspecified

== ENCOUNTER → 2023-12-20 11:43 | Outpatient (BNVA) | payer OTHER, SELFPAY | PROVIDERS: PCP Nurse Practitioner Family; Visit Provider Nurse Practitioner Family | DX: I10 Essential (primary) hypertension (principal); E11.9 Type 2 diabetes mellitus without complications | CPT/HCPCS: 83036; 99212 ==

== ENCOUNTER 2024-01-15 09:44 | Outpatient (REF) | payer OTHER, SELFPAY ==
[2024-01-15 11:55] LABS: Appearance Urine Clear; Color Urine Yellow; Glucose Urine UA Negative (Negative); Leukocyte Esterase Urine Trace (Negative); Nitrite Urine Negative (Negative); PH 5.5 (5.0-9.0); UMIC TRIGGER UACC YES; Urine Blood Negative (Negative); Urine Ketones Negative (Negative); Urine Protein Negative (Neg-Trace)
[2024-01-15 11:55] LABS: MANUAL DIFF FLAG NO
[2024-01-15 12:00] LABS: Bacteria Urine None Seen (None Seen); Hyaline Casts Urine 0-2 /LPF (0-2); RBC Urine 0-2 /HPF (0-2); Squamous Epithelial Cell Urine 0-2 /HPF (0-2); WBC Urine 0-5 /HPF (0-5)
[2024-01-15 12:01] LABS: Basophils Percent Auto 0.4 % (0-2); Eosinophils Absolute Auto 0.2 X10*3/uL (0.0-0.4); Eosinophils Percent Auto 2.8 % (0-4); Hematocrit 31.6 % (37.0-47.0); Hemoglobin 10.4 g/dl (12.0-16.0); Imm Gran Abs Auto 0.02 X10*3/uL (0.00-0.03); Imm Gran Pct Auto 0.3 % (0.0-0.4); Lymphocytes Absolute Auto 2.2 X10*3/uL (1.2-4.9); Lymphocytes Percent Auto 32.9 % (20-40); Mean Corpuscular HGB Conc 32.9 g/dl (31.0-35.0); Mean Corpuscular Hemoglobin 29.5 pg (27.0-33.0); Mean Corpuscular Volume 89.8 fL (80.0-98.0); Mean Platelet Volume 9.7 fL (9.4-12.3); Monocytes Absolute Auto 0.5 X10*3/uL (0.1-1.2); Monocytes Percent Auto 7.1 % (2-11); Neutrophils Absolute Auto 3.8 x10*3/uL (2.0-8.3); Neutrophils Percent Auto 56.5 % (45-73); Platelet Count 286 X10*3/uL (160-400); Red Blood Count 3.52 X10*6/uL (4.20-5.50); Red Cell Distribution Width 13.1 % (11.0-16.0); White Blood Count 6.7 X10*3/uL (4.8-10.8)
[2024-01-15 12:28] LABS: Creatinine Urine 120.64 mg/dL; Microalbum/Creatinine Ratio Ur 12.4 ug/mg cr (<30)
[2024-01-15 12:58] LABS: Alanine Aminotransferase 22 U/L (0-31); Albumin Level 4.2 g/dL (3.5-5.0); Alkaline Phosphatase 45 U/L (39-117); Anion Gap 15 (12-20); Aspartate Amino Transferase 24 U/L (5-31); Bilirubin Total 0.8 mg/dL (0.0-1.0); Blood Urea Nitrogen 16 mg/dL (9-16); Carbon Dioxide 24 mmol/L (22-29); Chloride 109 mmol/L (96-108); Cholesterol 136 mg/dL (<200); Estimated Glomerular Filt Rate > 60; Glucose Fasting 109 mg/dL (60-99); HDL Cholesterol 53 mg/dL (>40); LDL Cholesterol Calculated 66 mg/dL (<100); Potassium 4.7 mmol/L (3.3-5.1); Sodium 143 mmol/L (135-145); Total Protein 7.6 g/dL (6.5-8.0); Triglycerides 85 mg/dL (<150)
[2024-01-15 13:01] LABS: TSH reflex Free T4 2.05 uIU/mL (0.32-4.0)
== END 2024-01-15 09:45 | disposition home or self-care (01) ==
LOC: HO.WFDLDS 09:44
PROVIDERS: Visit Provider Nurse Practitioner Family
DX: Z00.00 Encounter for general adult medical examination without abnormal findings (principal)
CPT/HCPCS: 36415; 80053; 80061; 81001; 82043; 82570; 84443; 85025

== ENCOUNTER 2024-01-24 10:13 | Outpatient (AMB) | payer OTHER, SELFPAY ==
--- NOTE | 2024-01-24 10:21 | A.OFFPC_ITS ---
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 Motorcycle Designer Language: Front Services Agent Name: Dominga [id number] Is last menstrual period known: No Post menopausal: No Patient : No Allergies No Known Allergies Allergy (Verified 01/24/24 10:55) Medication List - Last Reconciled 01/24/24 by Libby Zhao CNP amlodipine 2.5 mg PO DAILY 30 days blood sugar diagnostic (Kaminariouch Ultra Test strips) POC testing TID blood-glucose meter (Kaminariouch Ultra2 Meter) POC testing TID cholecalciferol (vitamin D3) 50 mcg PO DAILY 90 days esomeprazole magnesium (Nexium) 40 mg PO DAILY glipizide ER 2.5 mg PO DAILY 30 days lancets ([employer]amin[employer] Delica Plus Lancet) POC testing TID levothyroxine 25 mcg PO DAILY 90 days lisinopril 40 mg PO DAILY 90 days metformin 1,000 mg PO BID 90 days rosuvastatin 20 mg PO DAILY 90 days Tobacco use date assessed: 01/24/24 Fall risk assessment: No Falls in past year Last assessed Fall Risk: 01/24/24 Dental Screening Dental Screen Date: 01/24/24 Did you have a dental visit in the last 12 months?: No Did you have a dental problem in the last 6 months where you did not have access to dental care?: No Was dental information given to patient?: Patient has dentist HPI HPI Comments History of Present Illness Details 68-year-old female presents, accompanied by her daughter, for an extended physical exam. She has PMH significant for diabetes, hypertension, hypothyroidism, GERD, and Ellsworth esophagus She admits to taking her medications as prescribed without adverse reactions She admits to making healthy lifestyle changes. She generally sleeps well Nonsmoker. Does not drink alcohol. No recreational drugs Last eye exam was with [facility] in 04/20[facility]. She will sign a consent for her PCP to obtain her records Last colonoscopy is on 06/20/2023: normal Last Pap smear is on 04/11/2023: normal Last mammogram is on 03/21/2023: Negative Last bone density scan is on 03/21/2023: Osteopenia She is up-to-date on the pneumonia vaccines She states she has never had the shingrix vaccines Last tetanus vaccine was over 10 years ago She has not been vaccinated for the flu this season and requests the vaccine She is followed by [facility] Interpretation by professional special agent group insurance via electronic tablet [facility] Medical History History of Ellsworth's esophagus Diabetes Arthritis Arteriosclerosis Ellsworth esophagus Acid reflux Thyroid disease High blood pressure Surgical History Hx of section History of appendectomy Hx of colonoscopy History of esophagogastroduodenoscopy (EGD) H/O cataract removal with insertion of prosthetic lens Family History Mother Diabetes Father Asthma Family/Other Diabetes Thyroid disease Sister History of breast cancer, Onset Age: 56 Social History Housing: Apartment Patient Tobacco Use Status: Former Tobacco user e-Cigarette/Vaping Use: Never Used Second Hand Smoke Exposure: No service: No Current occupational status: unemployed Cognitive needs: No Hearing needs: No Vision needs: No Questionnaire PHQ-9 Over the last 2 weeks, how often have you been bothered by any of the following problems? 1. Little interest or pleasure in doing things: not at all 2. Feeling down, depressed, or hopeless: not at all 3. Trouble falling or staying asleep, or sleeping too much: not at all 4. Feeling tired or having little energy: not at all 5. Poor appetite or overeating: not at all 6. Feeling bad about yourself - or that you are a failure or have let yourself or your family down: not at all 7. Trouble concentrating on things, such as reading the newspaper or watching television: not at all 8. Moving or speaking so slowly that other people could have noticed. Or the opposite - being so fidgety or restless that you have been moving around a lot more than usual: not at all 9. Thoughts that you would be better off or of hurting yourself in some way: not at all Total score: 0 Depression Screening Interpretation: Negative Depression Screening Done: Yes Source: Developed by Conchita Gerardo, Tyrone Colin and colleagues, with an educational colt from [employer]. Thrive Questionnaire Date Thrive assessed: 01/24/24 I am a: Patient What is your living situation today?: I have a steady place to live Within the past 12 months, did the food you bought not last and you didn't have the money to get more?: Never true Within the past 12 months, did you worry whether your food would run out before you got money to buy more?: Never true Do you have trouble paying for medicines?: No Do you have trouble getting transportation to medical appointments?: No Do you have trouble paying your heating and electricity bill?: No Do you have trouble taking care of your child, family member or friend?: No Do you have trouble with day-to-day activities such as bathing, preparing meals, shopping, managing finances, etc.?: No Are you currently unemployed and looking for a job?: Yes Are you interested in more education?: No Please select the resources that you would like help with: None Currently or been in a relationship where the following occur: No concerns reported THRIVE Score: 0 AUDIT C Alcohol Use Questionnaire (AUDIT-C) 1. How often do you have a drink containing alcohol?: Never Total Score: 0 SANTANA-7 AMB Questionnaire SANTANA-7 Date SANTANA - 7 assessed: 01/24/24 Feeling nervous, anxious, or on edge: 0 = Not at all Not being able to stop or control worryin = Not at all Worrying too much about different things: 0 = Not at all Trouble relaxin = Not at all Being so restless that it is hard to sit still: 0 = Not at all Becoming easily annoyed or irritable: 0 = Not at all Feeling afraid as if something awful might happen: 0 = Not at all Total SANTANA-7 score (0-4 normal; 5-9 mild; 10-14 moderate; 15-21 severe): 0 Source: Developed by Conchita Gerardo Kurt Kroenke and colleagues, with an educational colt from [employer]. SANTANA-7 Assessment Billing SANTANA-7 Assessment Tool: SANTANA-7 Assessment 08676 Review of Systems Const Details: Denies chills, Denies fatigue, Denies fever(s), Denies headache(s) and Denies weakness HEENT Denies change in vision, Denies dizziness, Denies headache(s), Denies hearing loss, Denies nasal congestion, Denies sinus pain, Denies sinus pressure and Denies sore throat Card Denies chest pain, Denies lightheadedness, Denies dyspnea and Denies other (palpitations) Resp Denies cough, Denies dyspnea and Denies wheezing GI Denies abdominal pain, Denies melena, Denies hematochezia, Denies change in bowel habits, Denies dyspepsia and Denies nausea Denies hematuria and Denies dysuria Musc Denies abnormal gait, Denies myalgias, Denies arthralgias, Denies numbness and Denies tingling Skin/Breast Denies rash, Denies unusual bruising and Denies wounds Neuro Denies abnormal gait, Denies dizziness, Denies headache(s), Denies memory loss, Denies numbness, Denies Sensory deficit (Neuro), Denies tingling and Denies weakness Psych Denies anxiety, Denies depression and Denies memory loss Endo Denies cold intolerance, Denies fatigue, Denies heat intolerance, Denies polydipsia and Denies polyuria Hung/Lymph Denies easy bleeding and Denies easy bruising Aller/Immun Denies wheezing Physical exam (Primary Care) Vital Signs: Last Vital Signs Temp 98.0 F 01/24/24 10:37 Pulse 71 01/24/24 10:37 Resp 16 01/24/24 10:37 BP 124/72 01/24/24 10:37 Pulse Ox 100 01/24/24 10:37 Oxygen Delivery Method Room Air 01/24/24 10:37 BMI result Body Mass Index 26.9 Tobacco/Smoking Status: Tobacco use Status Tobacco use date assessed 01/24/24 01/24/24 10:41 Patient Tobacco Use Status Former Tobacco user 01/24/24 10:22 e-Cigarette/Vaping Use Never Used 01/24/24 10:22 PHQ-9: PHQ-9 Score PHQ-9: Total score 0 01/24/24 11:29 Depression Screening Interpretation: Negative Thrive Assessment: Date of Thrive Assessment Date Thrive assessed 01/24/24 01/24/24 10:41 Currently or been in a relationship where the following occur: No concerns reported Const Other: General: no acute distress, well developed, alert and awake Nutritional Appearance: well nourished Orientation/consciousness: patient oriented x3 HENMT Head: Yes normocephalic and Yes atraumatic Ears: hearing grossly normal bilaterally and TM's normal bilaterally General nose exam: Normal external nose present and Normal nares present Mouth: Normal oral and palatal mucosa present and moist mucous membranes Teeth and gingiva: dentition normal Throat: Yes oropharynx normal Eyes Pupils: Equal, round and reactive pupils present and Pupil accommodation reflex normal EOM: EOMs intact bilaterally Neck Neck: Yes normal visual inspection, Yes no lymphadenopathy and Yes trachea midline Thyroid: Thyroid normal Carotids: no bruits Lymphatic: no lymphadenopathy noted Chest Chest palpation & inspection: normal inspection of the chest Resp Effort & Inspection: normal respiratory effort Auscultation: clear to auscultation bilaterally Cardio Rate: regular rate Rhythm: regular rhythm Heart sounds: S1 normal heart sound present, S2 normal heart sound present, no gallops, no murmurs and no rubs Bruits: no abdominal aortic bruits and no carotid bruits GI Palpation (GI): No Abdominal aortic bruit present, Soft to palpation, nontender, No hepatosplenomegaly present and No Rebound tenderness present Auscultation: normal bowel sounds General: Yes no CVA tenderness Back/Spine/Pelvis Back: no CVA tenderness Cervical Spine: cervical ROM normal and No Cervical spine tenderness Thoracic/Lumbar Spine: thoraco-lumbar ROM normal, No pain with thoraco-lumbar ROM, No thoracic spinal tenderness and No lumbar spinal tenderness Skin General: warm and dry. Normal skin color. Normal skin turgor Lesions: no lesions Rashes: no rashes Trauma: no lacerations or abrasions Wounds: no wounds Nails: normal Neuro General: patient oriented x3, gait normal and CN's II-XI intact bilaterally Cranial nerves: Yes Equal, round and reactive pupils present Cognition (Neuro): normal cognition Gait exam (Neuro): Normal gait present Motor exam (neuro): 5/5 motor strength present throughout Sensory Exam: No Sensory deficit (Neuro) Deep tendon reflexes (DTR's): Right patellar reflex intensity grade: 2+ and Left patellar reflex intensity grade: 2+ Extrem General: Yes normal to inspection, No edema and No calf tenderness Psych Appearance: grossly normal Affect: normal affect Attitude: cooperative Thought process: Normal thought process present Office Procedures Flu Questionnaire Does the patient have a severe egg allergy?: No Does the patient have severe life threatening allergies?: No Does the patient have a fever or illness today?: No Has the patient ever had Guillain-Ladysmith Syndrome?: No Has the patient ever had any past reaction to a flu shot?: No Immunizations Fluarix Triv 6431-7941 (PF) 45 mcg (15 mcg x 3)/0.5 mL IM syringe Performing Provider: Libby Zhao CNP Performing Location: [facility] Administered by: Shanthi Whittington RN on 01/24/24 12:01 Dose Route Admin Location Dispensed Lot Number Expiration Date [employer]st 0.5 mL IM Right Deltoid 0.5 mL [id number] 09/09/24 16129-037-39 [employer] VIS Given Date VIS Provided VIS Publication Date 01/24/24 Single Vaccine 20 Eligibility Eligibility Date Funding Source Not VFC Eligible 01/24/24 Private Boostrix Tdap 2.5 Lf unit-8 mcg-5 Lf/0.5 mL intramuscular syringe Performing Provider: Libby Zhao CNP Performing Location: [facility] Administered by: Shanthi Whittington RN on 01/24/24 12:01 Dose Route Admin Location Dispensed Lot Number Expiration Date [employer]st 0.5 mL IM Left Deltoid 0.5 mL [id number] 12/08/24 [id number] [employer] VIS Given Date VIS Provided VIS Publication Date 01/24/24 Single Vaccine 20 Eligibility Eligibility Date Funding Source Not VFC Eligible 01/24/24 Private Coding Level of Care Code Est Pt Level 3 (92382) Est Pt Prev Care >65y(02191) Diagnoses Normal physical examination, routine Z00.00 Mild anemia D64.9 Osteopenia M85.80 Vaccine for tetanus toxoid Z23 Flu vaccine need Z23 Additional Codes SANTANA-7 Assessment Billing - SANTANA-7 Assessment Tool: SANTANA-7 Assessment 95301 ([id number]) Assessment & Plan Assessment & Plan (1) Normal physical examination, routine: Code(s): Z00.00 - Encounter for general adult medical examination without abnormal findings Category: Medical Plan: No significant functional limitation noted Advised to continue current treatment regimen Healthy diet and routine exercise encouraged Advised the schedule an appointment with her dentist for routine dental care Follow-up in 2 months for diabetes and hypertension or sooner with symptoms or concerns Verbalized understanding and agreed with the treatment plan (2) Mild anemia: Code(s): D64.9 - Anemia, unspecified Category: Medical Plan: Recent labs reviewed with the patient; unremarkable findings except for low RBC and H&H, 3.52 and 10.4/31.6 respectively. She has history of slightly low RBC and H&H which is likely attributed to diabetes and hypertension. Will recheck CBC and check iron panel, folate, and vitamin B12 level. Will make changes as needed. Verbalized understanding and agreed with treatment plan. (3) Osteopenia: Code(s): M85.80 - Other specified disorders of bone density and structure, unspecified site Category: Medical Plan: DEXA scan on 03/21/2023 revealed osteopenia Advised to continue to take vitamin D3 as prescribed Routine exercise encouraged Verbalized understanding and agreed with treatment the treatment plan (4) Vaccine for tetanus toxoid: Code(s): Z23 - Encounter for immunization Category: Medical Plan: Her last tetanus vaccine was over 10 years ago Tdap vaccine administered today by our nurse (5) Flu vaccine need: Code(s): Z23 - Encounter for immunization Category: Medical Plan: She has not been vaccinated for the flu this season Flu vaccine administered today by our nurse Orders: Orders Influenza [id number] Immunization Today Z23 - Encounter for immunization TDaP Immunization Today Z23 - Encounter for immunization Complete Blood Count no Diff Today D64.9 - Anemia, unspecified IRON PROFILE Today D64.9 - Anemia, unspecified Vitamin B12 and Folate Today D64.9 - Anemia, unspecified
[2024-01-24 10:37] VITALS: BP 124/72; PULSE 71; RESP 16; TEMP 36.7; O2SAT 100; BMI 26.9
== END 2024-01-24 11:32 | disposition home or self-care (01) ==
PROVIDERS: PCP Nurse Practitioner Family; Visit Provider Nurse Practitioner Family
DX: Z00.00 Encounter for general adult medical examination without abnormal findings (principal); D64.9 Anemia, unspecified; M85.80 Other specified disorders of bone density and structure, unspecified site; Z23 Encounter for immunization

== ENCOUNTER → 2024-01-24 10:13 | Outpatient (BNVA) | payer OTHER, SELFPAY | PROVIDERS: PCP Nurse Practitioner Family; Visit Provider Nurse Practitioner Family | DX: Z00.00 Encounter for general adult medical examination without abnormal findings (principal); Z23 Encounter for immunization; D64.9 Anemia, unspecified; M85.80 Other specified disorders of bone density and structure, unspecified site | CPT/HCPCS: 90471; 90472; 90656; 90715; 96127; 99397 ==

== ENCOUNTER 2024-01-24 12:35 | Outpatient (REF) | payer OTHER, SELFPAY ==
[2024-01-24 14:27] LABS: Hematocrit 32.5 % (37.0-47.0); Hemoglobin 10.6 g/dl (12.0-16.0); Mean Corpuscular HGB Conc 32.6 g/dl (31.0-35.0); Mean Corpuscular Hemoglobin 29.6 pg (27.0-33.0); Mean Corpuscular Volume 90.8 fL (80.0-98.0); Mean Platelet Volume 9.8 fL (9.4-12.3); Platelet Count 277 X10*3/uL (160-400); Red Blood Count 3.58 X10*6/uL (4.20-5.50); Red Cell Distribution Width 13.3 % (11.0-16.0); White Blood Count 7.1 X10*3/uL (4.8-10.8)
[2024-01-24 14:41] LABS: Iron 63 mcg/dL (30-160); Percent Iron Saturation 22 % (15-50); Total Iron Binding Capacity 282 mcg/dL (228-428); Unsaturated Iron Binding 219 ug/dL
[2024-01-24 15:20] LABS: Folate 10.1 ng/mL (> or = 4.0); Vitamin B12 401 pg/mL (200-900)
== END 2024-01-24 12:36 | disposition home or self-care (01) ==
LOC: HO.WFDLDS 12:35
PROVIDERS: Visit Provider Nurse Practitioner Family
DX: D64.9 Anemia, unspecified (principal)
CPT/HCPCS: 36415; 82607; 82746; 83540; 85027

== ENCOUNTER 2024-02-07 12:10 | Outpatient (AMB) | payer OTHER, SELFPAY ==
--- NOTE | 2024-02-07 12:16 | MHC.PC.OV ---
Vital Signs 02/07/24 12:21 Height 5 ft 1 in Weight 141 lb 2 oz BMI 26.7 BP 113/52 L Blood Pressure Location Rt brachial Position Sitting Respiration 16 Pulse 92 Pulse Source Pulse Oximeter Temp 97.9 F Temp Source Temporal Artery Scan Pulse Oximetry (%) 100 Oxygen Delivery Method Room Air Intake Visit Reasons: [place] Intake Note: patient here c/o having pneumonia she went urgent care yesterday. 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 Compound Machine Operator Language: Septic Tank Service Technician Name: Teja Alvarado [id number] Information Interpreted: non-clinical & clinical Accompanied by: Daughter Is last menstrual period known: No Post menopausal: No Patient : No Allergies No Known Allergies Allergy (Verified 02/07/24 12:39) Medication List - Last Reconciled 02/07/24 by Libby Zhao CNP amlodipine 2.5 mg PO DAILY 30 days azithromycin For 250 mg dose pack: take 500 mg today (day 1), then 250 mg for 4 days (days 2-5) PO blood sugar diagnostic (Mobstatsuch Ultra Test strips) POC testing TID blood-glucose meter (Mobstatsuch Ultra2 Meter) POC testing TID cefpodoxime 200 mg PO BID cholecalciferol (vitamin D3) 50 mcg PO DAILY 90 days esomeprazole magnesium (Nexium) 40 mg PO DAILY glipizide ER 2.5 mg PO DAILY 30 days lancets (Primary Data Delica Plus Lancet) POC testing TID levothyroxine 25 mcg PO DAILY 90 days lisinopril 40 mg PO DAILY 90 days metformin 1,000 mg PO BID 90 days rosuvastatin 20 mg PO DAILY 90 days Tobacco use date assessed: 02/07/24 Fall risk assessment: No Falls in past year Last assessed Fall Risk: 02/07/24 Dental Screening Dental Screen Date: 02/07/24 Did you have a dental visit in the last 12 months?: No Did you have a dental problem in the last 6 months where you did not have access to dental care?: No Was dental information given to patient?: Patient has dentist HPI HPI Comments History of Present Illness Details The patient is a 68-year-old Portuguese speaking female presenting with follow-up for pneumonia. She was diagnosed with pneumonia yesterday at an urgent care facility and was prescribed azithromycin and cefpodoxime. She reports a slight improvement in her symptoms since beginning antibiotic treatment, noting a reduction in coughing episodes during the night. The patient describes her current symptoms as including a sore throat, headache, and upper back pain, with the cough primarily occurring at night and sometimes interrupting her sleep. She denies experiencing fever, wheezing, or difficulty breathing at any point. Her 7-year-old grandson, who recently completed treatment for pneumonia and is now asymptomatic, was the only other member of her household recently ill. She is accompanied by her daughter. Interpretation by a professional cardiac care nurse via electronic tablet. [facility] Medical History History of Ellsworth's esophagus Diabetes Arthritis Arteriosclerosis Ellsworth esophagus Acid reflux Thyroid disease High blood pressure Surgical History Hx of section History of appendectomy Hx of colonoscopy History of esophagogastroduodenoscopy (EGD) H/O cataract removal with insertion of prosthetic lens Family History Mother Diabetes Father Asthma Family/Other Diabetes Thyroid disease Sister History of breast cancer, Onset Age: 56 Social History Housing: Apartment Patient Tobacco Use Status: Former Tobacco user e-Cigarette/Vaping Use: Never Used Second Hand Smoke Exposure: No Patient : No service: No Current occupational status: unemployed Cognitive needs: No Hearing needs: No Vision needs: No Questionnaire Thrive Questionnaire Date Thrive assessed: 01/24/24 I am a: Patient What is your living situation today?: I have a steady place to live Within the past 12 months, did the food you bought not last and you didn't have the money to get more?: Never true Within the past 12 months, did you worry whether your food would run out before you got money to buy more?: Never true Do you have trouble paying for medicines?: No Do you have trouble getting transportation to medical appointments?: No Do you have trouble paying your heating and electricity bill?: No Do you have trouble taking care of your child, family member or friend?: No Do you have trouble with day-to-day activities such as bathing, preparing meals, shopping, managing finances, etc.?: No Are you currently unemployed and looking for a job?: Yes Are you interested in more education?: No Please select the resources that you would like help with: None Currently or been in a relationship where the following occur: No concerns reported THRIVE Score: 0 SANTANA-7 AMB Questionnaire SANTANA-7 Date SANTANA - 7 assessed: 01/24/24 Source: Developed by Drs. Dean Rojo, Conchita Coleman, Tyrone Colin and colleagues, with an educational colt from [employer]. Review of Systems Const Details: Const Denies chills, Denies fatigue, Denies fever(s), Reports headache(s) and Denies weakness ENT Reports as per HPI Card Denies chest pain, Denies lightheadedness, Denies dyspnea and Denies other (Palpitations) Resp Reports cough, Denies dyspnea, Denies wheezing and Denies other ( shortness of breath) GI Denies abdominal pain, Denies melena, Denies hematochezia, Denies change in bowel habits, Denies dyspepsia and Denies nausea Denies hematuria and Denies dysuria Musc Denies abnormal gait, Denies myalgias, Denies arthralgias, Denies numbness and Denies tingling Skin/Breast Denies rash, Denies unusual bruising and Denies wounds Neuro Denies abnormal gait, Denies dizziness, Reports headache(s), Denies memory loss, Denies numbness, Denies Sensory deficit (Neuro), Denies tingling and Denies weakness Psych Denies anxiety, Denies depression, Denies memory loss Endo Denies cold intolerance, Denies fatigue, Denies heat intolerance, Denies polydipsia and Denies polyuria Aller/Immun Denies wheezing Physical exam (Primary Care) Vital Signs: Last Vital Signs Temp 97.9 F 02/07/24 12:21 Pulse 92 02/07/24 12:21 Resp 16 02/07/24 12:21 BP 113/52 L 02/07/24 12:21 Pulse Ox 100 02/07/24 12:21 Oxygen Delivery Method Room Air 02/07/24 12:21 BMI result Body Mass Index 26.7 Tobacco/Smoking Status: Tobacco use Status Tobacco use date assessed 02/07/24 02/07/24 12:26 Patient Tobacco Use Status Former Tobacco user 02/07/24 12:19 e-Cigarette/Vaping Use Never Used 02/07/24 12:19 Thrive Assessment: Date of Thrive Assessment Date Thrive assessed 01/24/24 02/07/24 12:19 Currently or been in a relationship where the following occur: No concerns reported Const Other: General: no acute distress and well developed Nutritional Appearance: well nourished Orientation/consciousness: patient oriented x3 HENMT Head: Yes normocephalic and Yes atraumatic Eyes General: appearance normal, both eyes and all related structures Pupils: Equal, round and reactive pupils present EOM: EOMs intact bilaterally Resp Effort & Inspection: normal respiratory effort Auscultation: clear to auscultation bilaterally Cardio Rate: regular rate Rhythm: regular rhythm Heart sounds: S1 normal heart sound present, S2 normal heart sound present, no gallops, no murmurs and no rubs GI Palpation (GI): No Abdominal aortic bruit present, Soft to palpation, nontender, No hepatosplenomegaly present and No Rebound tenderness present Auscultation: normal bowel sounds General: Yes no CVA tenderness Back/Spine/Pelvis Back: no CVA tenderness Extrem General: Yes normal to inspection, No edema and No calf tenderness Skin General: warm and dry. Normal skin color. Normal skin turgor Neuro General: patient oriented x3, gait normal and no focal neuro deficit Cranial nerves: Yes Equal, round and reactive pupils present Cognition (Neuro): normal cognition Gait exam (Neuro): Normal gait present Sensory Exam: No Sensory deficit (Neuro) Psych Appearance: grossly normal Affect: normal affect Attitude: cooperative Thought process: Normal thought process present Coding Level of Care Code Est Pt Level 4 (85082) Diagnoses Pneumonia J18.9 Assessment & Plan Assessment & Plan (1) Pneumonia: Code(s): J18.9 - Pneumonia, unspecified organism Category: Medical Plan: Continue current antibiotic regimen with azithromycin and cefpodoxime for the prescribed duration. Prescribe benzonatate to manage nighttime cough. A nasal swab will be performed for COVID-19, influenza, and RSV to rule out concurrent viral infections. Patient was informed and verbally consented to the use of an ambient scribe for clinic note documentation during this visit. Plan I discussed with the patient that her symptoms of pneumonia seem to be improving with the current antibiotic treatment. We reviewed the importance of completing the full course of prescribed antibiotics to ensure full resolution of the infection. I prescribed benzonatate to help alleviate her nocturnal cough, which may disrupt her sleep. I indicated that a nasal swab would be conducted to test for COVID-19, influenza, and RSV to exclude other possible viral infections. I emphasized the importance of drinking plenty of fluids and getting adequate rest. The patient was advised to seek medical attention or follow up with our office if her symptoms worsen or if new symptoms develop. Orders: Orders SARS-CoV2/FLU/RSV Today J18.9 - Pneumonia, unspecified organism Medications: New benzonatate 100 mg PO BID PRN 10 caps 0RF cough Patient Instructions: - Continue taking prescribed antibiotics azithromycin and cefpodoxime. - Take benzonatate as prescribed for nighttime cough. - Drink plenty of fluids and get rest. - Await results from the nasal swab for further instructions. - Return to the clinic or urgent care if symptoms worsen.
[2024-02-07 12:21] VITALS: BP 113/52; PULSE 92; RESP 16; TEMP 36.6; O2SAT 100; BMI 26.7
== END 2024-02-07 13:08 | disposition home or self-care (01) ==
PROVIDERS: PCP Nurse Practitioner Family; Visit Provider Nurse Practitioner Family
DX: J18.9 Pneumonia, unspecified organism (principal)

== ENCOUNTER 2024-02-07 12:10 | Outpatient (REF) | payer OTHER, SELFPAY ==
[2024-02-07 15:05] LABS: Influenza A PCR NEGATIVE (Negative); Influenza B PCR NEGATIVE (Negative); Resp Syncy Virus RNA Qual PCR NEGATIVE (Negative); SARS COV2 PCR INHOUSE NEGATIVE (Negative)
== END 2024-02-07 12:11 | disposition home or self-care (01) ==
LOC: HO.LAB 12:10
PROVIDERS: PCP Nurse Practitioner Family; Visit Provider Nurse Practitioner Family
DX: J18.9 Pneumonia, unspecified organism (principal)
CPT/HCPCS: 0241U; 99212

== ENCOUNTER 2024-04-03 09:07 | Outpatient (AMB) | payer OTHER, SELFPAY ==
[2024-04-03 09:12] VITALS: BP 140/60; PULSE 76; O2SAT 100; BMI 27.4
--- NOTE | 2024-04-03 09:12 | A.OFFVIS_ITS ---
Vital Signs 04/03/24 09:12 Height 5 ft 1 in Weight 145 lb 1.027 oz BMI 27.4 BP 140/60 H Blood Pressure Location Rt radial Position Sitting Pulse 76 Pulse Source Pulse Oximeter Pulse Oximetry (%) 100 Oxygen Delivery Method Room Air Intake Visit Reasons: 6 months Intake Note: ESTABLISHED PATIENT Reason; 6 mo FU Changes/concerns? No significant GI concerns. Lip Cutter And Scorer Required: Yes Lip Cutter And Scorer Services: Lip Cutter And Scorer Present (BENNETT Perez) Lip Cutter And Scorer Name: Sharon [id number]- BENNETT Perez Information Interpreted: non-clinical & clinical Accompanied by: Self / Same As Patient Allergies No Known Allergies Allergy (Verified 04/09/24 11:04) HPI HPI 6 months: Details: LAST VISIT: Acid reflux History of Ellsworth's esophagus Plan Continue Nexium. Avoid dietary triggers and late night snacking. Staying upright for minimum 3 hours after meals discussed with patient. Patient will follow-up in 6 months, sooner on as needed basis. She is agreeable to this plan and verbalizes understanding of instructions. She was given the opportunity to ask questions and all questions answered. ? TODAY'S VISIT: Patient is here today for follow-up. Patient reports that since she started taking Nexium her symptoms of acid reflux are suppressed for the most part. Patient does however experience in the afternoon bloating, extreme gas, belching. Occasionally at night time patient experiences acid reflux. Patient reports that 1 night she had glass of wine and she had to lay on couple pillows because her acid reflux was so severe. Patient reports that she is not on any particular diet. Mostly eats Frisian food. Trying to incorporate vegetables and food. Patient reports that she is moving her bowels well every day. Bowels soft, brown. Denies constipation, diarrhea, mucus in her stools. Patient denies melena, hematochezia, unintentional weight loss or ribbon like stools. Patient denies any dyspepsia, dysphagia or odynophagia. Overall patient reports that she is feeling better wishes that she could control her bloating. [facility] Medical History (Updated 04/09/24 @ 11:28 by Sue Marino CNM) FH: breast cancer in first degree relative History of Ellsworth's esophagus Diabetes Arthritis Arteriosclerosis Ellsworth esophagus Acid reflux Thyroid disease High blood pressure Surgical History Hx of section History of appendectomy Hx of colonoscopy History of esophagogastroduodenoscopy (EGD) H/O cataract removal with insertion of prosthetic lens Family History Mother Diabetes Father Asthma Family/Other Diabetes Thyroid disease Sister History of breast cancer, Onset Age: 56 Social History Housing: Apartment Alcohol intake: never Patient Tobacco Use Status: Former Tobacco user e-Cigarette/Vaping Use: Never Used Second Hand Smoke Exposure: No service: No Current occupational status: unemployed Cognitive needs: No Hearing needs: No Vision needs: No Review of Systems Const Denies weight gain and Denies weight loss ENT Reports no additional complaints, Denies dysphagia and Denies odynophagia Card Reports no additional complaints Resp Reports no additional complaints GI Denies abdominal pain, Denies belching, Denies melena, Denies bloating, Denies change in bowel habits, Denies dysphagia, Denies excessive flatus, Denies dyspepsia, Denies heartburn, Denies diarrhea, Denies loose stools, Denies nausea, Denies odynophagia and Denies vomiting Musc Reports no additional complaints Neuro Reports no additional complaints Psych Reports no additional complaints Endo Reports no additional complaints Physical Exam Vital Signs: Last Vital Signs Pulse 76 04/03/24 09:12 BP 140/60 H 04/03/24 09:12 Pulse Ox 100 04/03/24 09:12 Oxygen Delivery Method Room Air 04/03/24 09:12 BMI result Body Mass Index 27.4 Const General: healthy appearing, no acute distress and well developed Nutritional Appearance: well nourished Orientation/consciousness: patient oriented x3 Resp Effort & Inspection: normal respiratory effort, able to speak in complete sentences, no tracheal deviation and symmetric chest movement Auscultation: clear to auscultation bilaterally Cardio Rate: regular rate GI Inspection: Yes normal to inspection and No distended Palpation (GI): Soft to palpation, not firm, nontender and No hepatosplenomegaly present Auscultation: normal bowel sounds General: Yes no CVA tenderness Back/Spine/Pelvis Back: no CVA tenderness Skin General skin exam: elasticity normal, turgor normal and dry skin Neuro General: patient oriented x3 Psych Appearance: grossly normal Mental Status: mental status grossly normal Assessment & Plan Assessment & Plan (1) Acid reflux: Code(s): K21.9 - Gastro-esophageal reflux disease without esophagitis Category: Medical Qualifiers: Esophagitis presence: esophagitis presence not specified Qualified Code(s): K21.9 - Gastro-esophageal reflux disease without esophagitis (2) History of Ellsworth's esophagus: Code(s): Z87.19 - Personal history of other diseases of the digestive system Category: Medical (3) Postprandial abdominal bloating: Code(s): R14.0 - Abdominal distension (gaseous) Plan Patient will continue Nexium daily. Avoid dietary triggers and late night snacking. Staying upright for minimum 3 hours after meals discussed with patient. Discussed with patient low FODMAP diet. Reports bloating specially after meals and later towards the end of the day. Simethicone ordered patient can use it as needed. Occasional acid reflux at night time. Again stressed the importance of not eating right before bedtime. Patient may take famotidine as needed. Increase fluid intake and activity. Patient will follow-up in 3 months, sooner on as needed basis. She is agreeable to this plan and verbalizes understanding of instructions. She was given the opportunity to ask questions and all questions answered. Thank you for allowing me to participate in her care Medications: New simethicone 125 mg PO BID-QID PRN 120 caps 3RF abdominal distention K21.9 - Gastro-esophageal reflux disease without esophagitis famotidine (Pepcid) 20 mg PO BEDTIME PRN 30 tabs 3RF acid reflux K21.9 - Gastro-esophageal reflux disease without esophagitis Coding Level of Care Code Est Pt Level 4 (44054) Complex EM visit Add On G2211 Diagnoses Gastroesophageal reflux disease, unspecified whether esophagitis present K21.9 Esophagitis presence: esophagitis presence not specified History of Ellsworth's esophagus Z87.19 Postprandial abdominal bloating R14.0 Time Spent (min) 35 Comment 25 minutes spent with patient and additional 10 minutes spent reviewing her records
--- OUTSIDE RECORDS SUMMARY | 2024-04-03 09:31 | XMS_ITS | Data Portability ---
Author Organization [place] - [facility], Allergy Address [address] [address] Care Team Providers Care Irrigator Head Name Role Phone NADIRA RILEY Primary Care Provider Assessment Encounter Date Assessment Date Assessment LastModified by Organization Details LastModified Time 02/19/2024 02/19/2024 69 year old female presents today for evaluation of itching in the ears and an echoing sensation in her right ear when she chews. Examination today reveals dry skin of the external auditory canals bilaterally with a small amount of dry cerumen. Middle ear space is well aerated bilaterally. There is significant crepitus of the jaw joint bilaterally, more so on the right than the left, and tenderness on the right side. She has a mild right septal deviation. Oral cavity is normal. Audiogram demonstrates normal hearing bilaterally. I suspect that the itching in her ears is related to dryness. Recommend use of mineral or olive oil drops to both ears 2-3 times per week. I have also prescribed fluocinolone oil for her to use as needed when the itching is severe. I suspect the echoing sound in her right ear with chewing is related to inflammation of jaw joint. Recommend she discuss obtaining a new bank guard with her current dentist. She can follow up with us as needed. [email or web address] Not available 02/19/2024 11:16:37 Plan of Treatment Reminders Order Date Submit Date Provider Last Modified By Organization Details Last Modified Time Details Appointments None recorded. Lab None recorded. Referral None recorded. Procedures None recorded. Surgeries None recorded. Imaging None recorded. Medication Orders fluocinolon e acetonide oil 0.01 % ear drops 2023 024 [facility]/Pharmacy #[id number], [address] [place], [address], 11:17:25 Patient TargetsNo targets recorded. Patient InstructionsNo instructions recorded. Reason for Referral None Reported. Results Created Date Observation Date Name Description Value Unit Range Abnormal Flag Note LastModifiedBy Organization Detail LastModifiedTime 02/21/20 24 audio gram No observ ation record ed. BARCODE Not Available 2023 11:35:04 Result Notes None recorded. Problems Name Problem SNOMED Code Status Onset Date Resolution Date Notes Provider Name and Address Organization Details Recorded Time Bilateral tinnitus 9110840142623 Active 2023 LOPEZ ALY, AUD [address] [facility],[place] [address], [place], [address], [facility] - [facility] 4 10:57:15 Abnormal auditory perception 73989072 Active 2023 DAKSHA STOLL PA-C [address] [place] [address],[place] [address], [place], [address], [facility] - [facility] 4 11:16:42 Pain of right temporomand ibular joint 7234902931233 9107 Active 2023 DAKSHA STOLL PA-C [address] [address], [place], [address], [facility] - [facility] 4 11:16:50 Itching of skin 820064840 Active 2023 DAKSHA STOLL PA-C [address] [facility], [address] [facility], [place], [address], [facility] - [facility] 4 11:16:54 Problem Notes None recorded. Procedures Surgical History Date Name Laterality Status Provider Name and Address Organization Details Recorded Time 02/19/2024 [employer] (59[address]) completed LOPEZ ALY, AUD [facility] [place],[address], [address], [facility] - [facility] 02/19/2024 10:56:49 Imaging Results Imaging Date Name Status LastModified by Organiz ation Details LastModified Time 02/21/2024 audiogram completed BARCODE Information no t available 02/21/2024 11:35:04 Procedure Notes None recorded. Medical Equipment None Reported. Medications Name Sig Start Date Stop Date Status Note LastModified by Organization Details LastModified Time cetirizine 10 mg tablet TAKE 1 TABLET BY MOUTH EVERY DAY active Not Available Not Available No t Available cefpodoxime 200 mg tablet TAKE 1 TABLET BY MOUTH TWICE A DAY FOR 7 DAYS active Not Available Not Available No t Available azithromycin 250 mg tablet TAKE 2 TABLETS BY MOUTH TODAY, THEN TAKE 1 TABLET DAILY FOR 4 DAYS DIRECTED active Not Available Not Available No t Available glyburide 5 mg tablet TAKE 1 TABLET BY MOUTH EVERY DAY active Not Available Not Available No t Available lisinopril 20 mg tablet TAKE 1 TABLET BY MOUTH EVERY DAY active Not Available Not Available No t Available amlodipine 2.5 mg tablet TAKE 1 TABLET BY MOUTH EVERY DAY active Not Available Not Available No t Available levothyroxin e 25 mcg tablet TAKE 1 TABLET BY MOUTH EVERY DAY active Not Available Not Available No t Available ketorolac 0.5 % eye drops PLEASE SEE ATTACHED FOR DETAILED DIRECTIONS active Not Available Not Available N ot Available OneTouch Ultra Test strips USE TO TEST 3 TIMES A DAY active Not Available Not Available No t Available benzonatate 100 mg capsule TAKE 1 CAPSULE BY MOUTH TWICE A DAY NEEDED FOR COUGH active Not Available Not Available No t Available glipizide ER 2.5 mg tablet, extended release 24 hr TAKE 1 TABLET BY MOUTH EVERY DAY active Not Available Not Available No t Available metformin 1,000 mg tablet TAKE 1 TABLET BY MOUTH TWICE A DAY active Not Available Not Available No t Available esomeprazole magnesium 40 mg capsule,vandana yed release TAKE 1 CAPSULE BY MOUTH EVERY DAY active Not Available Not Available No t Available lisinopril 10 mg tablet TAKE 1 TABLET BY MOUTH EVERY DAY active Not Available Not Available No t Available omeprazole 20 mg capsule,vandana yed release TAKE 1 CAPSULE BY MOUTH DAILY FOR 90 DAYS active Not Available Not Available Not Available lisinopril 40 mg tablet TAKE 1 TABLET BY MOUTH EVERY DAY active Not Available Not Available No t Available rosuvastatin 20 mg tablet TAKE 1 TABLET BY MOUTH EVERY DAY FOR 90 DAYS active Not Available Not Available No t Available fluocinolone acetonide oil 0.01 % ear drops instill 2 drops to affected ear as needed for itching. active Not Available Not Available No t Available cholecalcife rol (vitamin D3) 50 mcg (2,000 unit) capsule TAKE 1 CAPSULE BY MOUTH EVERY DAY FOR 90 DAYS active Not Available Not Available No t Available cholecalcife rol (vitamin D3) 50 mcg (2,000 unit) tablet TAKE 1 TABLET BY MOUTH EVERY DAY active Not Available Not Available No t Available OneTouch Ultra2 Meter TEST BLOOD SUGAR THREE TIMES A DAY active Not Available Not Available Not Available OneTouch Delica Plus Lancet 30 gauge USE DIRECTED 3 TIMES A DAY active Not Available Not Available Not Available Vitals Date Recorded Body weight Provider Name an d Address Organization Details Last Updated DateTime 02/19/2024 85092.75 g Dayan Bahena [place] - [facility] 02/19/2024 10:48:45 Social History None recorded. Functional Status None recorded. Mental Status None recorded. Family History Nothing Reported. Medical History Condition Response Arthritis Y Hypertension Y Gynecological HistoryNo gynecological history recorded. Obstetrics History GPAL:G 0 P 0 0 0 0 Past Encounters Encounter ID Performer Location Encounter Start Date Encounter Closed Date Diagnosis/Indication Diagnosis SNOMED-CT Code Diagnosis ICD10 Code Diagnosis Note [id number] DAKSHA STOLL PA-C [facility] on [address] [place] [address] 02/19/2024 10:04:38 02/19/2024 11:38:57 Bilateral tinnitus 5932669607 102 H93.13 Audiologic al evaluation results: 02/19/2024 Right ear: {{Normal* Normal through 2 kHz Mild M oderate Mo derately-s evere Caroline re Profoun d}} {{hearing* hearing. sloping to a mild slopi ng to a moderate s loping to moderately severe slo ping to severe slo ping to profound f lat high frequency low frequency mid frequency cookie bite gaytan curve}} {{with* se nsorineura l hearing loss with condu ctive hearing loss with mixed hearing loss with}} {{excellen t* good fa ir poor no measurable }} word recognitio n. Left ear: {{Normal* Normal through 2 kHz Mild M oderate Mo derately-s evere Caroline re Profoun d}} {{hearing* hearing. sloping to a mild slopi ng to a moderate s loping to moderately severe slo ping to severe slo ping to profound f lat high frequency low frequency mid frequency cookie bite gaytan curve}} {{with* se nsorineura l hearing loss with condu ctive hearing loss with mixed hearing loss with}} {{excellen t* good fa ir poor no measurable }} word recognitio n. Tympanomet ry: Right Ear:{{Type A* Type As Type Ad Type C Type C, shallow & rounded Ty pe B Type B with large volume Cou ld not maintain a hermetic seal}} Left Ear:{{Type A* Type As Type Ad Type C Type C, shallow & rounded Ty pe B Type B with large volume Cou ld not maintain a hermetic seal}} Abnormal a uditory perception 37171131 H93.291 Pain of ri ght temporomandibular joint 8535677735 9352079 M26.621 Itching of skin 99280755 0 L29.9 Health Concerns Section Related Observation LastModified by Organization Detai ls LastModified Time None Recorded Concern Status LastModified by Organization Details LastModified Time None Recorded Advance Directives Directive None Recorded Payers Encounter Date Sequence Insurance Name Policy Number Policy Marshall Covered Member ID Marshall Member ID Guarantor Name 02/19/2024 1 [facility] [employer] - DIRECT [facility] TYPE I (HMO) [id number] Victoriano Barnett [id number] Victoriano Barnett Notes Date Note Type Note Provider Name and Address Organization Details Recorded Time 02/19/2024 text/html 69 year old female, Belgian speaking, presents today accompanied by her daughter for evaluation of the ears.She reports difficulties with ear itching, which is worse at night. During the day she has the sensation of fluid in the ears as well. When she chews she hears an echo in the right ear particularly. Symptoms have been present for well over a year now. Her primary care provider prescribed an allergy medication which did not help. She feels that she hears well. She has no tinnitus. She does believe she clenches or grinds her teeth at night. Prior to coming to the , when she lived in [facility], she had a bank guard, but she did not bring it with her when she moved. She does have a dentist that she sees regularly. DAKSHA STOLL PA-C [address] [place] [address],[place] [address], [place], [address], [facility] - [facility] 02/19/2024 11:17:48 OBGyn Episode No OBEpisode recorded.
--- OUTSIDE RECORDS SUMMARY | 2024-04-03 09:31 | XMS_ITS | Clinical Summary ---
Author Organization [employer] Address [address] [facility] [address] [place] [address] Care Team Providers Care Territory Sales Manager Name Role Phone Unavailable Primary Care Provider Unavailabl e Social History Tobacco Use Types Packs/Day Years Used Date Smoking Tobacco: Never Assessed Comments Unknown Sex and Gender Information Value Date Recorded Sex Assigned at Not on file Legal Sex Female 10:59 AM EDT Gender Identity Not on file Sexual Orientation Not on file Plan of Treatment Health Maintenance Due Date Last Done Comments CT Colonography 1956 Colonoscopy 1956 Colorectal Cancer Screening 1956 Depression Screening 1956 FIT DNA/Cologuard 1956 FIT 1956 FOBT 1956 SDOH Screening 1956 Sigmoidoscopy 1956 Alcohol/Substance Use Screening 1968 Tobacco Screening 1968 Hepatitis C Screening 02/10/1974 DTaP/Tdap/Td Vaccines (1 - Tdap) 02/10/1975 Mammogram 1996 Zoster Vaccines (1 of 2) 02/10/2006 Pneumococcal Vaccine: 65+ Ye ars (1 of 1 - PCV) 02/10/2021 COVID-19 Vaccine ( - 2023-2 5 season) 2023 Influenza Vaccine (#1) 2023 RSV Patients and Pa tients Aged 60 years or older (1 - 1-dose 75+ series) 02/10/2031 HIB Vaccines Aged Out No longer eligi ble based on patient's age to complete this topic HPV Vaccines Aged Out No longer eligi ble based on patient's age to complete this topic Hepatitis A Vaccines Aged Out No long er eligible based on patient's age to complete this topic Hepatitis B Vaccines Aged Out No long er eligible based on patient's age to complete this topic IPV Vaccines Aged Out No longer eligi ble based on patient's age to complete this topic Meningococcal Vaccine Aged Out No janel maria dolores eligible based on patient's age to complete this topic RSV under 20 months Aged Out No longe r eligible based on patient's age to complete this topic Rotavirus Vaccines Aged Out No longer eligible based on patient's age to complete this topic Insurance [facility]
== END 2024-04-03 09:40 | disposition home or self-care (01) ==
PROVIDERS: PCP Nurse Practitioner Family; Visit Provider Nurse Practitioner Family
DX: K21.9 Gastro-esophageal reflux disease without esophagitis (principal); Z87.19 Personal history of other diseases of the digestive system; R14.0 Abdominal distension (gaseous)
CPT/HCPCS: 99214; G2211

== ENCOUNTER → 2024-04-03 09:07 | Outpatient (BNVA) | payer OTHER, SELFPAY | PROVIDERS: PCP Nurse Practitioner Family; Visit Provider Nurse Practitioner Family | DX: K21.9 Gastro-esophageal reflux disease without esophagitis (principal); R14.0 Abdominal distension (gaseous); Z87.19 Personal history of other diseases of the digestive system | CPT/HCPCS: 99212 ==

== ENCOUNTER → 2024-04-09 10:41 | Outpatient (BNVA) | payer OTHER, SELFPAY | PROVIDERS: PCP Nurse Practitioner Family; Visit Provider Advanced Practice Midwife | DX: Z01.419 Encounter for gynecological examination (general) (routine) without abnormal findings (principal); Z80.3 Family history of malignant neoplasm of breast | CPT/HCPCS: 99397; 99459 ==

== ENCOUNTER 2024-04-30 13:32 | Outpatient (REF) | payer OTHER, SELFPAY ==
--- OUTSIDE RECORDS SUMMARY | 2024-04-30 15:33 | XMS_ITS | Clinical Summary ---
Author Organization [employer] Address [address] [facility] [address]t [place] [address] Care Team Providers Care Payroll Technician Name Role Phone Unavailable Primary Care Provider [...] patient's age to complete this topic Insurance [facility]
== END 2024-04-30 13:33 | disposition home or self-care (01) ==
LOC: HO.LAB 13:32
PROVIDERS: PCP Nurse Practitioner Family; Visit Provider Nurse Practitioner Family
DX: J06.9 Acute upper respiratory infection, unspecified (principal)
CPT/HCPCS: 99212

== ENCOUNTER 2024-04-30 13:32 | Outpatient (REF) | payer OTHER, SELFPAY ==
[2024-04-30 18:56] LABS: Influenza A PCR NEGATIVE (Negative); Influenza B PCR NEGATIVE (Negative); Resp Syncy Virus RNA Qual PCR NEGATIVE (Negative); SARS COV2 PCR INHOUSE NEGATIVE (Negative)
== END 2024-04-30 13:33 | disposition home or self-care (01) ==
LOC: HO.LNP 13:32
PROVIDERS: Visit Provider Nurse Practitioner Family
DX: J06.9 Acute upper respiratory infection, unspecified (principal)
CPT/HCPCS: 0241U

== ENCOUNTER → 2024-04-30 13:32 | Outpatient (AMB) | payer OTHER, SELFPAY ==
--- NOTE | 2024-04-30 13:46 | MHC.PC.OV ---
Vital Signs 04/30/24 13:55 Height 5 ft 1 in Weight 144 lb 2 oz BMI 27.2 BP 125/60 Blood Pressure Location Rt brachial Position Sitting Respiration 16 Pulse 98 Pulse Source Pulse Oximeter Temp 98.4 F Temp Source Oral Pulse Oximetry (%) 99 Oxygen Delivery Method Room Air Intake Visit Reasons: cold/flu Intake Note: patient here c/o cold/ flu since Monday. Fan Runner Required: Yes Fan Runner Language: Czech Information Interpreted: non-clinical & clinical Is last menstrual period known: No Post menopausal: No Patient : No Allergies No Known Allergies Allergy (Verified 04/30/24 14:13) Medication List - Last Reconciled 04/30/24 by Libby Zhao CNP amlodipine 2.5 mg PO DAILY 30 days blood sugar diagnostic ([employer] Ultra Test strips) POC testing TID blood-glucose meter ([employer] Ultra2 Meter) POC testing TID cholecalciferol (vitamin D3) 50 mcg PO DAILY esomeprazole magnesium 40 mg PO DAILY famotidine (Pepcid) 20 mg PO BEDTIME PRN glipizide ER 2.5 mg PO DAILY 30 days lancets ([employer] Delica Plus Lancet) POC testing TID levothyroxine 25 mcg PO DAILY 90 days lisinopril 40 mg PO DAILY 90 days metformin 1,000 mg PO BID 90 days rosuvastatin 20 mg PO DAILY 90 days simethicone 125 mg PO BID-QID PRN Tobacco use date assessed: 04/30/24 Fall risk assessment: No Falls in past year Last assessed Fall Risk: 04/30/24 Dental Screening Dental Screen Date: 04/30/24 Did you have a dental visit in the last 12 months?: Yes Did you have a dental problem in the last 6 months where you did not have access to dental care?: No Was dental information given to patient?: Patient has dentist HPI HPI Comments History of Present Illness Details 69-year-old Czech speaking female, accompanied by her daughter, presents with complaints of productive cough with yellow phlegm, runny nose, headache and sore throat. Her symptoms have been ongoing for the past 4 days. Her symptoms worsened today. She has been Tylenol without relief. She notes positive sick contacts with similar symptoms. No known COVID, flu, or RSV contact. She denies fever, chills, body aches, fatigue, or weakness. [facility] Medical History (Updated 04/30/24 @ 14:30 by Libby Zhao CNP) FH: breast cancer in first degree relative History of Ellsworth's esophagus Diabetes Arthritis Arteriosclerosis Ellsworth esophagus Acid reflux Thyroid disease High blood pressure Surgical History Hx of section History of appendectomy Hx of colonoscopy History of esophagogastroduodenoscopy (EGD) H/O cataract removal with insertion of prosthetic lens Family History Mother Diabetes Father Asthma Family/Other Diabetes Thyroid disease Sister History of breast cancer, Onset Age: 56 Social History Housing: Apartment Alcohol intake: never Patient Tobacco Use Status: Former Tobacco user e-Cigarette/Vaping Use: Never Used Second Hand Smoke Exposure: No Patient : No service: No Current occupational status: unemployed Cognitive needs: No Hearing needs: No Vision needs: No Questionnaire PHQ-9 Over the last 2 weeks, how often have you been bothered by any of the following problems? 1. Little interest or pleasure in doing things: not at all 2. Feeling down, depressed, or hopeless: not at all 3. Trouble falling or staying asleep, or sleeping too much: not at all 4. Feeling tired or having little energy: not at all 5. Poor appetite or overeating: not at all 6. Feeling bad about yourself - or that you are a failure or have let yourself or your family down: not at all 7. Trouble concentrating on things, such as reading the newspaper or watching television: not at all 8. Moving or speaking so slowly that other people could have noticed. Or the opposite - being so fidgety or restless that you have been moving around a lot more than usual: not at all 9. Thoughts that you would be better off or of hurting yourself in some way: not at all Total score: 0 Source: Developed by Drs. Dean Rojo, Conchita Coleman, Tyrone Colin and colleagues, with an educational colt from [employer]. Thrive Questionnaire Date Thrive assessed: 04/22/24 I am a: Patient What is your living situation today?: I have a steady place to live Within the past 12 months, did the food you bought not last and you didn't have the money to get more?: Never true Within the past 12 months, did you worry whether your food would run out before you got money to buy more?: Never true Do you have trouble paying for medicines?: No Do you have trouble getting transportation to medical appointments?: No Do you have trouble paying your heating and electricity bill?: No Do you have trouble taking care of your child, family member or friend?: No Do you have trouble with day-to-day activities such as bathing, preparing meals, shopping, managing finances, etc.?: No Are you currently unemployed and looking for a job?: Yes Are you interested in more education?: No Please select the resources that you would like help with: None Currently or been in a relationship where the following occur: No concerns reported THRIVE Score: 0 SANTANA-7 AMB Questionnaire SANTANA-7 Date SANTANA - 7 assessed: 01/24/24 Source: Developed by Drs. Dean Rojo, Conchita Coleman, Tyrone Colin and colleagues, with an educational colt from [employer]. Review of Systems Const Details: Const Denies chills, Denies fatigue, Denies fever(s), Denies headache(s) and Denies weakness ENT Reports as per HPI Card Denies chest pain, Denies lightheadedness, Denies dyspnea and Denies other (Palpitations) Resp Reports cough, Denies dyspnea, Denies wheezing and Denies other ( shortness of breath) Physical exam (Primary Care) Vital Signs: Last Vital Signs Temp 98.4 F 04/30/24 13:55 Pulse 98 04/30/24 13:55 Resp 16 04/30/24 13:55 BP 125/60 04/30/24 13:55 Pulse Ox 99 04/30/24 13:55 Oxygen Delivery Method Room Air 04/30/24 13:55 BMI result Body Mass Index 27.2 Tobacco/Smoking Status: Tobacco use Status Tobacco use date assessed 04/30/24 04/30/24 13:57 Patient Tobacco Use Status Former Tobacco user 04/30/24 13:47 e-Cigarette/Vaping Use Never Used 04/30/24 13:47 PHQ-9: PHQ-9 Score PHQ-9: Total score 0 04/30/24 13:47 Thrive Assessment: Date of Thrive Assessment Date Thrive assessed 04/22/24 04/30/24 13:47 Currently or been in a relationship where the following occur: No concerns reported Const Other: General: no acute distress and well developed Nutritional Appearance: well nourished Orientation/consciousness: patient oriented x3 HENMT Head is normocephalic Bilateral ear canal and TM are normal Nasal turbinates and oropharynx are pink and moist Sinuses are nontender with palpation No auricular or cervical lymphadenopathy Eyes General: appearance normal, both eyes and all related structures Pupils: Equal, round and reactive pupils present EOM: EOMs intact bilaterally Resp Effort & Inspection: normal respiratory effort Auscultation: clear to auscultation bilaterally Cardio Rate: regular rate Rhythm: regular rhythm Heart sounds: S1 normal heart sound present, S2 normal heart sound present, no gallops, no murmurs and no rubs Coding Level of Care Code Est Pt Level 3 (36507) Diagnoses Viral upper respiratory illness J06.9 Assessment & Plan Assessment & Plan (1) Viral upper respiratory illness: Code(s): J06.9 - Acute upper respiratory infection, unspecified Category: Medical Plan: Likely viral illness though possibly allergies. No exam evidence of bacterial infection Viral illness There is no antibiotic medication for viruses.? They must run their course.? Most average 5-7 days but 7-10 days is not uncommon and up to 14 days is still possible.? A cough is often the last symptom to resolve and this can last for weeks in some cases. Rest Hydrate well -? Drink plenty of fluids.? Especially water. Tylenol or ibuprofen for muscle aches, headache, fever/discomfort Zyrtec and benzonatate as prescribed for allergies and cough respectively Cannot rule out COVID-19/RSV/Flu infection Nasal swab acquired and will be sent to the lab Return for new or worsening symptoms Verbalized understanding and agreed with treatment plan. Orders: Orders SARS-CoV2/FLU/RSV Today J06.9 - Acute upper respiratory infection, unspecified Medications: New cetirizine 10 mg PO DAILY 30 days 30 tabs 0RF benzonatate 100 mg PO BID 5 days PRN 10 caps 0RF cough
[2024-04-30 13:55] VITALS: BP 125/60; PULSE 98; RESP 16; TEMP 36.9; O2SAT 99; BMI 27.2
--- OUTSIDE RECORDS SUMMARY | 2024-04-30 14:28 | XMS_ITS | Clinical Summary ---
Author Organization [employer] Address [address] [facility] [address] [place] [address] Care Team Providers Care Pasting Inspector Name Role Phone Unavailable Primary Care Provider [...] Vaccines (1 - Tdap) 02/10/1975 Mammogram 1996 Pneumococcal Vaccine: 50+ Ye ars (1 of 1 - PCV) 02/10/2006 Zoster Vaccines (1 of 2) 02/10/2006 COVID-19 Vaccine ( - 2023-2 5 season) [...] patient's age to complete this topic Insurance [facility]
--- OUTSIDE RECORDS SUMMARY | 2024-04-30 14:28 | XMS_ITS | Data Portability ---
Author Organization [place] [facility], Allergy Address [address] [address] Care Team Providers Care Isotope Hydrologist Name Role Phone NADIRA RILEY Primary Care Provider [phone] Assessment Encounter Date Assessment Date Assessment LastModified [...] joint. Recommend she discuss obtaining a new security guard supervisor with her current dentist. She can follow [...] oil 0.01 % ear drops 2023 024 [facility]/Pharmacy #[id number], [address] [place], [address], 11:17:25 Patient TargetsNo targets recorded. Patient InstructionsNo [...] Address Organization Details Recorded Time Bilateral tinnitus 1929704134633 Active 2023 LOPEZ ALY, AUD 100 [facility],[place] [address], [place], [address], [facility] - [facility] [place] 4 10:57:15 Abnormal auditory perception 36351937 Active 2023 DAKSHA STOLL PA-C [address] [place] [address],[place] [address], [place], [address], [facility] - [facility] [place] 4 11:16:42 Pain of right temporomand ibular joint 7804731782720 9107 Active 2023 DAKSHA STOLL PA-C [address] [address], [place], [address], [facility] - [facility] [place] 4 11:16:50 Itching of skin 490879848 Active 2023 DAKSHA STOLL PA-C 100 [facility], [address] [facility], [place], [address], [facility] - [facility] [place] 4 11:16:54 Problem Notes None recorded. Procedures Surgical History Date Name Laterality Status Provider Name and Address Organization Details Recorded Time 02/19/2024 [facility] [employer] [facility] (62804) completed LOPEZ ALY, AUD 100 [facility] [place],[address], [address], [facility] - [facility] [place] 02/19/2024 10:56:49 Imaging Results Imaging Date Name [...] Address Organization Details Last Updated DateTime 02/19/2024 71970.75 g Dayan Bahena [place] [facility] [place] 02/19/2024 10:48:45 Social History None recorded. Functional Status None recorded. Mental Status None recorded. Family History Nothing Reported. Medical History Condition Response Arthritis Y Hypertension Y Gynecological HistoryNo gynecological history recorded. Obstetrics History GPAL:G 0 P 0 0 0 0 Past Encounters Encounter ID Performer Location Encounter Start Date Encounter Closed Date Diagnosis/Indication Diagnosis SNOMED-CT Code Diagnosis ICD10 Code Diagnosis Note [id number] DAKSHA STOLL PA-C [facility] [address] [place] [address] 02/19/2024 10:04:38 02/19/2024 11:38:57 Bilateral tinnitus 6073809905 102 H93.13 Audiologic al evaluation results: 02/19/2024 [...] a hermetic seal}} Abnormal a uditory perception 27662449 H93.291 Pain of ri ght temporomandibular joint 6477461031 3266470 M26.621 Itching of skin 43156967 0 L29.9 Health Concerns Section Related Observation LastModified by Organization Detai ls LastModified Time None Recorded Concern Status LastModified by Organization Details LastModified Time None Recorded Advance Directives Directive None Recorded Payers Encounter Date Sequence Insurance Name Policy Number Policy Marshall Covered Member ID Marshall Member ID Guarantor Name 02/19/2024 1 [facility] [employer] - DIRECT [facility] TYPE I (HMO) [id number] Victoriano Barnett [id number] Victoriano Barnett Notes Date Note Type Note Provider Name and Address Organization Details Recorded Time 02/19/2024 text/html 69 year old female, Polish speaking, presents today accompanied by her daughter [...] to the , when she lived in [facility], 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 She does have a dentist that she sees regularly. DAKSHA STOLL PA-C [address] [place] [address],[place] [address], [place], [address], [facility] - [facility] 02/19/2024 11:17:48 OBGyn Episode No OBEpisode recorded.
== END ==
PROVIDERS: PCP Nurse Practitioner Family; Visit Provider Nurse Practitioner Family
DX: J06.9 Acute upper respiratory infection, unspecified (principal)

== ENCOUNTER 2024-05-31 09:46 | Outpatient (AMB) | payer OTHER, SELFPAY ==
--- NOTE | 2024-05-31 09:49 | A.OFFPC_ITS ---
Vital Signs 05/31/24 10:03 05/31/24 10:15 Height 5 ft 1 in Weight 146 lb BMI 27.6 BP 145/65 H 130/60 Blood Pressure Location Rt brachial Lt brachial Position Sitting Sitting Respiration 16 Pulse 73 Pulse Source Pulse Oximeter Temp 98.0 F Temp Source Oral Pulse Oximetry (%) 99 Oxygen Delivery Method Room Air Intake Visit Reasons: 2 mos DM, HTN Intake Note: patient here for 2 month follow up on DM, HTN Adjunct Business Instructor Required: Yes Adjunct Business Instructor Language: Grenadian Is last menstrual period known: No Post menopausal: No Patient : No Allergies No Known Allergies Allergy (Verified 05/31/24 10:10) Medication List - Last Reconciled 05/31/24 by Libby Zhao CNP amlodipine 2.5 mg PO DAILY 30 days benzonatate 100 mg PO BID PRN 5 days blood sugar diagnostic (Sentillauch Ultra Test strips) POC testing TID blood-glucose meter (Eat In ChefTouch Ultra2 Meter) POC testing TID cetirizine 10 mg PO DAILY 30 days cholecalciferol (vitamin D3) 50 mcg PO DAILY esomeprazole magnesium 40 mg PO DAILY famotidine (Pepcid) 20 mg PO BEDTIME PRN glipizide ER 2.5 mg PO DAILY 30 days lancets (Sentillauch Delica Plus Lancet) POC testing TID levothyroxine 25 mcg PO DAILY 90 days lisinopril 40 mg PO DAILY 90 days metformin 1,000 mg PO BID 90 days rosuvastatin 20 mg PO DAILY 90 days simethicone 125 mg PO BID-QID PRN Tobacco use date assessed: 05/31/24 Fall risk assessment: No Falls in past year Last assessed Fall Risk: 05/31/24 Dental Screening Dental Screen Date: 05/31/24 Did you have a dental visit in the last 12 months?: Yes Did you have a dental problem in the last 6 months where you did not have access to dental care?: No Was dental information given to patient?: Patient has dentist HPI HPI Comments History of Present Illness Details 69-year-old Grenadian-speaking female, acc ompanied by her daughter, presents for diabetes and hypertension follow-up. She admits to taking her medications as prescribed without adverse reactions. She has been making healthy lifestyle changes. She offers no complaints and denies acute symptoms at this time. Interpretation by a professional branch lending officer via video. FOR[facility]LY [facility], [facility] Medical History (Updated 04/30/24 @ 14:30 by Libby Zhao CNP) FH: breast cancer in first degree relative History of Ellsworth's esophagus Diabetes Arthritis Arteriosclerosis Ellsworth esophagus Acid reflux Thyroid disease High blood pressure Surgical History Hx of section History of appendectomy Hx of colonoscopy History of esophagogastroduodenoscopy (EGD) H/O cataract removal with insertion of prosthetic lens Family History Mother Diabetes Father Asthma Family/Other Diabetes Thyroid disease Sister History of breast cancer, Onset Age: 56 Social History Housing: Apartment Alcohol intake: never Patient Tobacco Use Status: Former Tobacco user e-Cigarette/Vaping Use: Never Used Second Hand Smoke Exposure: No service: No Current occupational status: unemployed Cognitive needs: No Hearing needs: No Vision needs: No Questionnaire Thrive Questionnaire Date Thrive assessed: 04/22/24 I am a: Patient What is your living situation today?: I have a steady place to live Within the past 12 months, did the food you bought not last and you didn't have the money to get more?: Never true Within the past 12 months, did you worry whether your food would run out before you got money to buy more?: Never true Do you have trouble paying for medicines?: No Do you have trouble getting transportation to medical appointments?: No Do you have trouble paying your heating and electricity bill?: No Do you have trouble taking care of your child, family member or friend?: No Do you have trouble with day-to-day activities such as bathing, preparing meals, shopping, managing finances, etc.?: No Are you currently unemployed and looking for a job?: Yes Are you interested in more education?: No Please select the resources that you would like help with: None Currently or been in a relationship where the following occur: No concerns reported THRIVE Score: 0 SANTANA-7 AMB Questionnaire SANTANA-7 Date SANTANA - 7 assessed: 01/24/24 Source: Developed by Drs. Dean Rojo, Conchita Coleman, Tyrone Colin and colleagues, with an educational colt from [employer]. Review of Systems Const Details: Const Denies chills, Denies fatigue, Denies fever(s), Denies headache(s) and Denies weakness ENT Denies dizziness and Denies headache(s) Card Denies chest pain, Denies lightheadedness, Denies dyspnea and Denies other (Palpitations) Resp Denies cough, Denies dyspnea, Denies wheezing and Denies other ( shortness of breath) GI Denies abdominal pain, Denies melena, Denies hematochezia, Denies change in bowel habits, Denies dyspepsia and Denies nausea Denies hematuria and Denies dysuria Musc Denies abnormal gait, Denies myalgias, Denies arthralgias, Denies numbness and Denies tingling Skin/Breast Denies rash, Denies unusual bruising and Denies wounds Neuro Denies abnormal gait, Denies dizziness, Denies headache(s), Denies memory loss, Denies numbness, Denies Sensory deficit (Neuro), Denies tingling and Denies weakness Psych Denies anxiety, Denies depression, Denies memory loss Endo Denies cold intolerance, Denies fatigue, Denies heat intolerance, Denies polydipsia and Denies polyuria Aller/Immun Denies wheezing Physical exam (Primary Care) Vital Signs: Last Vital Signs Temp 98.0 F 05/31/24 10:03 Pulse 73 05/31/24 10:03 Resp 16 05/31/24 10:03 BP 145/65 H 05/31/24 10:03 Pulse Ox 99 05/31/24 10:03 Oxygen Delivery Method Room Air 05/31/24 10:03 BMI result Body Mass Index 27.6 Tobacco/Smoking Status: Tobacco use Status Tobacco use date assessed 05/31/24 05/31/24 10:01 Patient Tobacco Use Status Former Tobacco user 05/31/24 09:53 e-Cigarette/Vaping Use Never Used 05/31/24 09:53 Thrive Assessment: Date of Thrive Assessment Date Thrive assessed 04/22/24 05/31/24 09:53 Currently or been in a relationship where the following occur: No concerns reported Const Other: General: no acute distress and well developed Nutritional Appearance: well nourished Orientation/consciousness: patient oriented x3 HENMT Head: Yes normocephalic and Yes atraumatic Eyes General: appearance normal, both eyes and all related structures Pupils: Equal, round and reactive pupils present EOM: EOMs intact bilaterally Resp Effort & Inspection: normal respiratory effort Auscultation: clear to auscultation bilaterally Cardio Rate: regular rate Rhythm: regular rhythm Heart sounds: S1 normal heart sound present, S2 normal heart sound present, no gallops, no murmurs and no rubs GI Palpation (GI): No Abdominal aortic bruit present, Soft to palpation, nontender, No hepatosplenomegaly present and No Rebound tenderness present Auscultation: normal bowel sounds General: Yes no CVA tenderness Back/Spine/Pelvis Back: no CVA tenderness Cervical Spine: cervical ROM normal and No Cervical spine tenderness Thoracic/Lumbar Spine: thoraco-lumbar ROM normal, No pain with thoraco-lumbar ROM, No thoracic spinal tenderness and No lumbar spinal tenderness Extrem General: Yes normal to inspection, No edema and No calf tenderness Skin General: warm and dry. Normal skin color. Normal skin turgor Neuro General: patient oriented x3, gait normal and no focal neuro deficit Cranial nerves: Yes Equal, round and reactive pupils present Cognition (Neuro): normal cognition Gait exam (Neuro): Normal gait present Sensory Exam: No Sensory deficit (Neuro) Psych Appearance: grossly normal Affect: normal affect Attitude: cooperative Thought process: Normal thought process present Results AMB Hemoglobin A1c AMB Hemoglobin A1c 6.1 % Last Edit by Danica Chanel MA on 05/31/24 10:19 Coding Level of Care Code Est Pt Level 3 (60624) Diagnoses Essential hypertension I10 Diabetes mellitus E11.9 Assessment & Plan Assessment & Plan (1) Essential hypertension: Code(s): I10 - Essential (primary) hypertension Category: Medical Plan: Resting blood pressure is 130/60, slightly above goal of less than 130/80. Continue current treatment regimen. Low-sodium diet encouraged. Follow-up in 3 months or sooner with symptoms or concerns. Verbalized understanding and agreed with treatment plan. (2) Diabetes mellitus: Code(s): E11.9 - Type 2 diabetes mellitus without complications Category: Medical Plan: A1c today 6.1%, within goal of less than 7.0%. Previous A1c is 7.5%. ADA diet and routine exercise encouraged. Follow-up in 3 months. Verbalized understanding and agreed with treatment plan. Orders: Orders AMB Hemoglobin A1c Today Z13.9 - Encounter for screening, unspecified
[2024-05-31 10:03] VITALS: BP 145/65; PULSE 73; RESP 16; TEMP 36.7; O2SAT 99; BMI 27.6
[2024-05-31 10:15] VITALS: BP 130/60
--- OUTSIDE RECORDS SUMMARY | 2024-05-31 11:17 | XMS_ITS | Data Portability ---
Author Organization [place] - [facility], Allergy Address [address] [address] Care Team Providers Care Corporate Legal Manager Name Role Phone NADIRA RILEY Primary Care Provider [phone] Assessment Encounter Date Assessment Date Assessment LastModified [...] oil 0.01 % ear drops 2023 024 [facility]/Pharmacy #[id number], [address] [place], [address], 11:17:25 Patient TargetsNo targets recorded. Patient InstructionsNo [...] Address Organization Details Recorded Time Bilateral tinnitus 7077823816283 Active 2023 LOPEZ ALY, AUD 100 [facility],[place] [address], [place], [address], [facility] - [facility] [place] 4 10:57:15 Abnormal auditory perception 98505206 Active 2023 DAKSHA STOLL PA-C [address] [place] [address],[place] [address], [place], [address], [facility] - [facility] [place] 4 11:16:42 Pain of right temporomand ibular joint 1166236219891 9107 Active 2023 DAKSHA STOLL PA-C [address] [address], [place], [address], [facility] - [facility] [place] 4 11:16:50 Itching of skin 942379267 Active 2023 DAKSHA STOLL PA-C 100 [facility], E [facility], [place], [address], [facility] - [facility] [place] 4 11:16:54 Problem Notes None recorded. Procedures Surgical History Date Name Laterality Status Provider Name and Address Organization Details Recorded Time 02/19/2024 [employer] [facility] [employer] (64206) completed LOPEZ ALY, AUD 100 [facility] [place],[address], [address], [facility] - [facility] [place] 02/19/2024 10:56:49 Imaging Results Imaging Date Name [...] Address Organization Details Last Updated DateTime 02/19/2024 16913.75 g Dayan Bahena [place] [facility] [place] 02/19/2024 10:48:45 Social History None recorded. Functional Status None recorded. Mental Status None recorded. Family History Nothing Reported. Medical History Condition Response Arthritis Y Hypertension Y Gynecological HistoryNo gynecological history recorded. Obstetrics History GPAL:G 0 P 0 0 0 0 Past Encounters Encounter ID Performer Location Encounter Start Date Encounter Closed Date Diagnosis/Indication Diagnosis SNOMED-CT Code Diagnosis ICD10 Code Diagnosis Note [id number] DAKSHA STOLL PA-C [facility] on [address] [place] [address] 02/19/2024 10:04:38 02/19/2024 11:38:57 Bilateral tinnitus 5268056384 102 H93.13 Audiologic al evaluation results: 02/19/2024 [...] a hermetic seal}} Abnormal a uditory perception 44899003 H93.291 Pain of ri ght temporomandibular joint 4046650934 9586321 M26.621 Itching of skin 55144535 0 L29.9 Health Concerns Section Related Observation LastModified by Organization Detai ls LastModified Time None Recorded Concern Status LastModified by Organization Details LastModified Time None Recorded Advance Directives Directive None Recorded Payers Encounter Date Sequence Insurance Name Policy Number Policy Marshall Covered Member ID Marshall Member ID Guarantor Name 02/19/2024 1 [facility] PUBLIC [employer] - DIRECT [facility] TYPE I (HMO) [id number] Victoriano Barnett [id number] Victoriano Barnett Notes Date Note Type Note Provider Name and Address Organization Details Recorded Time 02/19/2024 text/html 69 year old female, Croatian speaking, presents today accompanied by her daughter [...] to the , when she lived in [facility], 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 She does have a dentist that she sees regularly. DAKSHA STOLL PA-C [address] [place] [address],[place] [address], [place], [address], [facility] - [facility] 02/19/2024 11:17:48 OBGyn Episode No OBEpisode recorded.
--- OUTSIDE RECORDS SUMMARY | 2024-05-31 11:17 | XMS_ITS | Clinical Summary ---
Author Organization [employer] Address [address] [facility] 7[address] [place] [address] Care Team Providers Care Spiral Binder Name Role Phone Unavailable Primary Care Provider [...] patient's age to complete this topic Insurance [facility]
== END 2024-05-31 10:27 | disposition home or self-care (01) ==
LOC: HO.HMCFM 09:47
PROVIDERS: PCP Nurse Practitioner Family; Visit Provider Nurse Practitioner Family
DX: I10 Essential (primary) hypertension (principal); E11.9 Type 2 diabetes mellitus without complications; Z13.9 Encounter for screening, unspecified

== ENCOUNTER → 2024-05-31 09:46 | Outpatient (BNVA) | payer OTHER, SELFPAY | PROVIDERS: PCP Nurse Practitioner Family; Visit Provider Nurse Practitioner Family | DX: I10 Essential (primary) hypertension (principal); E11.9 Type 2 diabetes mellitus without complications | CPT/HCPCS: 83036; 99212 ==

== ENCOUNTER 2024-10-01 09:57 | Outpatient (AMB) | payer OTHER, SELFPAY ==
--- NOTE | 2024-10-01 10:01 | MHC.PC.OV ---
Vital Signs 10/01/24 10:07 Height 5 ft 1 in Weight 148 lb BMI 28.0 BP 140/64 H Blood Pressure Location Lt brachial Position Sitting Respiration 16 Pulse 73 Pulse Source Pulse Oximeter Temp 98.3 F Temp Source Oral Pulse Oximetry (%) 100 Oxygen Delivery Method Room Air Intake Visit Reasons: 3 mos HTN, DM Intake Note: patient here for 3 month follow up on HTN and DM Drill Press Operator For Metal Required: Yes Drill Press Operator For Metal Language: Contracts Specialist Name: Yonatan [id number] Information Interpreted: non-clinical & clinical Is last menstrual period known: No Post menopausal: No Patient : No Allergies No Known Allergies Allergy (Verified 10/01/24 10:12) Medication List - Last Reconciled 10/01/24 by Libby Zhao CNP amlodipine 2.5 mg PO DAILY 30 days benzonatate 100 mg PO BID PRN 5 days blood sugar diagnostic ([employer] Ultra Test strips) POC testing TID blood-glucose meter ([employer] Ultra2 Meter) POC testing TID cetirizine 10 mg PO DAILY cholecalciferol (vitamin D3) 50 mcg PO DAILY esomeprazole magnesium 40 mg PO DAILY famotidine 20 mg PO BEDTIME PRN glipizide ER 2.5 mg PO DAILY 90 days lancets ([employer] Delica Plus Lancet) POC testing TID levothyroxine 25 mcg PO DAILY 90 days lisinopril 40 mg PO DAILY 90 days metformin 1,000 mg PO BID 90 days rosuvastatin 20 mg PO DAILY 90 days Tobacco use date assessed: 10/01/24 Fall risk assessment: No Falls in past year Last assessed Fall Risk: 10/01/24 Dental Screening Dental Screen Date: 10/01/24 Did you have a dental visit in the last 12 months?: Yes Did you have a dental problem in the last 6 months where you did not have access to dental care?: No Was dental information given to patient?: Patient has dentist HPI HPI Comments History of Present Illness Details 69-year-old Kenyan-speaking female, accompanied by her daughter, presents for diabetes and hypertension follow-up. She admits to taking her medications as prescribed without adverse reactions. She has been making healthy lifestyle changes. Reports intermittent dry cough and runny nose daily for the past 3 months. She has been taking cetirizine 10 mg daily x 15 days when it was initially prescribed in April because i don't know if it's the right thing to do to continue taking the medication. She notes that she did not experienced improvement while she was on the medication. Also reports intermittent upper back pain for the past 15 days. She denies fall, injury, or trauma. She has not been taking medication for her symptoms. Interpretation by a professional neon sign erector via electronic tablet. [facility] Medical History (Updated 10/01/24 @ 10:41 by Libby Zhao CNP) FH: breast cancer in first degree relative History of Ellsworth's esophagus Diabetes Arthritis Arteriosclerosis Ellsworth esophagus Acid reflux Thyroid disease High blood pressure Surgical History Hx of section History of appendectomy Hx of colonoscopy History of esophagogastroduodenoscopy (EGD) H/O cataract removal with insertion of prosthetic lens Family History Mother Diabetes Father Asthma Family/Other Diabetes Thyroid disease Sister History of breast cancer, Onset Age: 56 Social History Housing: Apartment Alcohol intake: never Patient Tobacco Use Status: Former Tobacco user e-Cigarette/Vaping Use: Never Used Second Hand Smoke Exposure: No service: No Current occupational status: unemployed Cognitive needs: No Hearing needs: No Vision needs: No Questionnaire Thrive Questionnaire Date Thrive assessed: 04/22/24 I am a: Patient What is your living situation today?: I have a steady place to live Within the past 12 months, did the food you bought not last and you didn't have the money to get more?: Never true Within the past 12 months, did you worry whether your food would run out before you got money to buy more?: Never true Do you have trouble paying for medicines?: No Do you have trouble getting transportation to medical appointments?: No Do you have trouble paying your heating and electricity bill?: No Do you have trouble taking care of your child, family member or friend?: No Do you have trouble with day-to-day activities such as bathing, preparing meals, shopping, managing finances, etc.?: No Are you currently unemployed and looking for a job?: Yes Are you interested in more education?: No Please select the resources that you would like help with: None Currently or been in a relationship where the following occur: No concerns reported THRIVE Score: 0 SANTANA-7 AMB Questionnaire SANTANA-7 Date SANTANA - 7 assessed: 01/24/24 Source: Developed by Drs. Dean Rojo, Conchita oCleman, Tyrone Colin and colleagues, with an educational colt from [employer]. Review of Systems Const Details: Const Denies chills, Denies fatigue, Denies fever(s), Denies headache(s) and Denies weakness ENT Reports as per HPI Card Denies chest pain, Denies lightheadedness, Denies dyspnea and Denies other (Palpitations) Resp Reports cough, Denies dyspnea, Denies wheezing and Denies other ( shortness of breath) GI Denies abdominal pain, Denies melena, Denies hematochezia, Denies change in bowel habits, Denies dyspepsia and Denies nausea Denies hematuria and Denies dysuria Musc Reports as per HPI Skin/Breast Denies rash, Denies unusual bruising and Denies wounds Neuro Denies abnormal gait, Denies dizziness, Denies headache(s), Denies memory loss, Denies numbness, Denies Sensory deficit (Neuro), Denies tingling and Denies weakness Psych Denies anxiety, Denies depression, Denies memory loss Endo Denies cold intolerance, Denies fatigue, Denies heat intolerance, Denies polydipsia and Denies polyuria Aller/Immun Denies wheezing Physical exam (Primary Care) Vital Signs: Last Vital Signs Temp 98.3 F 10/01/24 10:07 Pulse 73 10/01/24 10:07 Resp 16 10/01/24 10:07 BP 140/64 H 10/01/24 10:07 Pulse Ox 100 10/01/24 10:07 Oxygen Delivery Method Room Air 10/01/24 10:07 BMI result Body Mass Index 28.0 Tobacco/Smoking Status: Tobacco use Status Tobacco use date assessed 05/31/24 10/01/24 10:03 Patient Tobacco Use Status Former Tobacco user 10/01/24 10:03 e-Cigarette/Vaping Use Never Used 10/01/24 10:03 Thrive Assessment: Date of Thrive Assessment Date Thrive assessed 04/22/24 10/01/24 10:03 Currently or been in a relationship where the following occur: No concerns reported Const Other: General: no acute distress and well developed Nutritional Appearance: well nourished Orientation/consciousness: patient oriented x3 HENMT Head: Yes normocephalic and Yes atraumatic Eyes General: appearance normal, both eyes and all related structures Pupils: Equal, round and reactive pupils present EOM: EOMs intact bilaterally Resp Effort & Inspection: normal respiratory effort Auscultation: clear to auscultation bilaterally Cardio Rate: regular rate Rhythm: regular rhythm Heart sounds: S1 normal heart sound present, S2 normal heart sound present, no gallops, no murmurs and no rubs GI Palpation (GI): No Abdominal aortic bruit present, Soft to palpation, nontender, No hepatosplenomegaly present and No Rebound tenderness present Auscultation: normal bowel sounds General: Yes no CVA tenderness Back/Spine/Pelvis Back: no CVA tenderness Cervical Spine: cervical ROM normal and No Cervical spine tenderness Thoracic/Lumbar Spine: thoraco-lumbar ROM normal, No pain with thoraco-lumbar ROM, positive thoracic spinal tenderness and No lumbar spinal tenderness Extrem General: Yes normal to inspection, No edema and No calf tenderness Skin General: warm and dry. Normal skin color. Normal skin turgor Neuro General: patient oriented x3, gait normal and no focal neuro deficit Cranial nerves: Yes Equal, round and reactive pupils present Cognition (Neuro): normal cognition Gait exam (Neuro): Normal gait present Sensory Exam: No Sensory deficit (Neuro) Psych Appearance: grossly normal Affect: normal affect Attitude: cooperative Thought process: Normal thought process present Results AMB Hemoglobin A1c AMB Hemoglobin A1c 6.0 % Last Edit by Danica Chanel MA on 10/01/24 10:20 Coding Level of Care Code Est Pt Level 4 (22531) Complex EM visit Add On G2211 Diagnoses Essential hypertension I10 Diabetes mellitus E11.9 Thoracic back pain M54.6 Seasonal allergies J30.2 Assessment & Plan Assessment & Plan (1) Essential hypertension: Code(s): I10 - Essential (primary) hypertension Category: Medical Plan: Resting blood pressure is 140/64, above goal of less than 130/80. Will increase amlodipine to 5 mg daily; advised to take as prescribed. Continue to take lisinopril as prescribed. Low-sodium diet encouraged. Follow-up in 1 month or sooner with symptoms or concerns. Verbalized understanding and agreed with the plan. (2) Diabetes mellitus: Code(s): E11.9 - Type 2 diabetes mellitus without complications Category: Medical Plan: A1c today is 6.0% within goal of less regan 7.0. Previous A1c was 6.1%. Continue current treatment regimen. ADA diet and routine exercise encouraged. Follow up in 3 months. Verbalized understanding and agreed with the treatment plan. (3) Thoracic back pain: Code(s): M54.6 - Pain in thoracic spine Category: Medical Plan: Also reports intermittent upper back pain for the past 15 days. She has not been taking medication for her symptoms. Thoracic spine tenderness to palpation. No overt injury or trauma noted. May take Tylenol ibuprofen for pain or discomfort. Warm/cool compresses encouraged. Follow-up with worsening or new symptoms. Verbalized understanding and agreed with plan. (4) Seasonal allergies: Code(s): J30.2 - Other seasonal allergic rhinitis Category: Medical Plan: Reports intermittent dry cough and runny nose daily for the past 3 months. She has been taking cetirizine 10 mg daily x 15 days when it was initially prescribed in April because i don't know if it's the right thing to do to continue taking the medication. She notes that she did not experienced improvement while she was on the medication. Encouraged to start taking cetirizine 10 mg daily. Benzonatate 100 mg twice daily x5 days ordered for cough; advised to take as prescribed. Adequate hydration and rest encouraged. Follow-up with worsening or new symptoms. Verbalized understanding and agreed with the plan. Orders: Orders AMB Hemoglobin A1c Today Z13.9 - Encounter for screening, unspecified Medications: New amlodipine 5 mg PO DAILY 30 tabs 3RF 30 days Refilled benzonatate 100 mg PO BID PRN 10 caps 0RF cough 5 days Discontinued amlodipine Discontinued Reason: Doctor's Order 2.5 mg PO DAILY 30 days 30 tabs 1RF
[2024-10-01 10:07] VITALS: BP 140/64; PULSE 73; RESP 16; TEMP 36.8; O2SAT 100; BMI 28.0
--- OUTSIDE RECORDS SUMMARY | 2024-10-01 10:50 | XMS_ITS | Clinical Summary ---
Author Organization [employer] Address [address] [place] [address] Care Team Providers Care Boarder Steam Name Role Phone Unavailable Primary Care Provider [...] 2023-2 5 season) 2023 Influenza Vaccine (#1) 2024 RSV Patients and Pa tients Aged 60 [...] patient's age to complete this topic Meningococcal B Vaccine Aged Out No l onger eligible based on patient's age to complete this topic Meningococcal Vaccine Aged Out No janel maria dolores eligible based on patient's age to complete this topic RSV under 20 months Aged Out No longe r eligible based on patient's age to complete this topic Rotavirus Vaccines Aged Out No longer eligible based on patient's age to complete this topic Insurance [facility] [place] [id number]
== END 2024-10-01 10:38 | disposition home or self-care (01) ==
LOC: HO.HMCFM 09:58
PROVIDERS: PCP Nurse Practitioner Family; Visit Provider Nurse Practitioner Family
DX: I10 Essential (primary) hypertension (principal); E11.9 Type 2 diabetes mellitus without complications; M54.6 Pain in thoracic spine; J30.2 Other seasonal allergic rhinitis; Z13.9 Encounter for screening, unspecified

== ENCOUNTER → 2024-10-01 09:57 | Outpatient (BNVA) | payer OTHER, SELFPAY | PROVIDERS: PCP Nurse Practitioner Family; Visit Provider Nurse Practitioner Family | DX: E11.9 Type 2 diabetes mellitus without complications (principal); I10 Essential (primary) hypertension; M54.6 Pain in thoracic spine; J30.2 Other seasonal allergic rhinitis | CPT/HCPCS: 83036; 99212 ==

== ENCOUNTER 2024-10-18 09:50 | Outpatient (AMB) | payer OTHER, SELFPAY ==
--- NOTE | 2024-10-18 09:53 | MHC.OFFVIS ---
Vital Signs 10/18/24 09:59 Height 5 ft 1 in Weight 143 lb 4.807 oz BMI 27.1 BP 134/62 Blood Pressure Location Rt brachial Position Sitting Pulse 76 Pulse Source Pulse Oximeter Pulse Oximetry (%) 99 Oxygen Delivery Method Room Air Intake Visit Reasons: f/u acid reflux Intake Note: ESTABLISHED PATIENT for mgmt of GERD w/ hx of Ellsworth's CC; Pt denies any changes or new concerns from last visit. Pipe Bowl Paint Trimmer Required: Yes Pipe Bowl Paint Trimmer Services: Pipe Bowl Paint Trimmer Present Pipe Bowl Paint Trimmer Name: [facility] Deborah Martinze [id number] Information Interpreted: clinical only Accompanied by: Self / Same As Patient Allergies No Known Allergies Allergy (Verified 10/18/24 09:54) Medication List - Last Reconciled 10/18/24 by OBI BowersP- amlodipine 5 mg PO DAILY 30 days blood sugar diagnostic ([employer] Ultra Test strips) POC testing TID blood-glucose meter ([employer] Ultra2 Meter) POC testing TID cetirizine 10 mg PO DAILY cholecalciferol (vitamin D3) 50 mcg PO DAILY esomeprazole magnesium 40 mg PO DAILY glipizide ER 2.5 mg PO DAILY 90 days lancets ([employer] Delica Plus Lancet) POC testing TID levothyroxine 25 mcg PO DAILY 90 days lisinopril 40 mg PO DAILY 90 days metformin 1,000 mg PO BID 90 days rosuvastatin 20 mg PO DAILY 90 days HPI HPI f/u acid reflux: Details: LAST VISIT Acid reflux History of Ellsworth's esophagus Postprandial abdominal bloating Plan Patient will continue Nexium daily. Avoid dietary triggers and late night snacking. Staying upright for minimum 3 hours after meals discussed with patient. Discussed with patient low FODMAP diet. Reports bloating specially after meals and later towards the end of the day. Simethicone ordered patient can use it as needed. Occasional acid reflux at night time. Again stressed the importance of not eating right before bedtime. Patient may take famotidine as needed. Increase fluid intake and activity. Patient will follow-up in 3 months, sooner on as needed basis. She is agreeable to this plan and verbalizes understanding of instructions. She was given the opportunity to ask questions and all questions answered. ? Thank you for allowing me to participate in her care New simethicone 125 mg PO BID-QID PRN 120 caps 3RF abdominal distention K21.9 famotidine (Pepcid) 20 mg PO BEDTIME PRN 30 tabs 3RF acid reflux K21.9 TODAY'S VISIT: Patient is here today for follow-up. Patient reports that she has been doing better since last visit. Patient is taking Nexium in the morning. Symptoms of acid reflux are suppressed. Patient denies dyspepsia, dysphagia or odynophagia. Patient denies nausea or vomiting. No longer is taking famotidine. Patient does reports to be feeling gassy. Admits to be eating mostly Fijian food with rice and beans. Patient has not received simethicone from pharmacy, script was given last visit. Patient denies melena, hematochezia, unintentional weight loss or ribbon like stools. Overall patient is doing well. Denies any other GI concerning symptoms. PFSH Medical History FH: breast cancer in first degree relative History of Ellsworth's esophagus Diabetes Arthritis Arteriosclerosis Ellsworth esophagus Acid reflux Thyroid disease High blood pressure Surgical History Hx of section History of appendectomy Hx of colonoscopy History of esophagogastroduodenoscopy (EGD) H/O cataract removal with insertion of prosthetic lens Family History Mother Diabetes Father Asthma Family/Other Diabetes Thyroid disease Sister History of breast cancer, Onset Age: 56 Social History Housing: Apartment Alcohol intake: never Patient Tobacco Use Status: Former Tobacco user e-Cigarette/Vaping Use: Never Used Second Hand Smoke Exposure: No service: No Current occupational status: unemployed Cognitive needs: No Hearing needs: No Vision needs: No Review of Systems Const Denies weight gain and Denies weight loss ENT Reports no additional complaints, Denies dysphagia and Denies odynophagia Card Reports no additional complaints Resp Reports no additional complaints GI Denies abdominal pain, Denies belching, Denies melena, Denies bloating, Denies change in bowel habits, Denies dysphagia, Denies excessive flatus, Denies dyspepsia, Denies heartburn, Denies diarrhea, Denies loose stools, Denies nausea, Denies odynophagia and Denies vomiting Musc Reports no additional complaints Neuro Reports no additional complaints Psych Reports no additional complaints Endo Reports no additional complaints Physical Exam Const General: healthy appearing, no acute distress and well developed Nutritional Appearance: well nourished Orientation/consciousness: patient oriented x3 Resp Effort & Inspection: normal respiratory effort, able to speak in complete sentences, no tracheal deviation and symmetric chest movement Auscultation: clear to auscultation bilaterally Cardio Rate: regular rate GI Inspection: Yes normal to inspection and No distended Palpation (GI): Soft to palpation, not firm, nontender and No hepatosplenomegaly present Auscultation: normal bowel sounds General: Yes no CVA tenderness Back/Spine/Pelvis Back: no CVA tenderness Skin General skin exam: elasticity normal, turgor normal and dry skin Neuro General: patient oriented x3 Psych Appearance: grossly normal Mental Status: mental status grossly normal Assessment & Plan Assessment & Plan (1) Acid reflux: Code(s): K21.9 - Gastro-esophageal reflux disease without esophagitis Category: Medical Qualifiers: Esophagitis presence: esophagitis presence not specified Qualified Code(s): K21.9 - Gastro-esophageal reflux disease without esophagitis (2) History of Ellsworth's esophagus: Code(s): Z87.19 - Personal history of other diseases of the digestive system Category: Medical (3) Postprandial abdominal bloating: Code(s): R14.0 - Abdominal distension (gaseous) Plan Patient will continue taking Nexium every morning. Avoid dietary triggers and late night snacking. Staying upright for minimum 3 hours after meals discussed patient. Take simethicone as needed with meals. Low FODMAP diet recommended. List of he food recommended as well as list of food to avoid given to patient. Patient will follow-up in 6 months, sooner on as needed basis. She is agreeable to this plan and verbalizes understanding of instructions. She was given the opportunity to ask questions and all questions answered. Thank you for allowing me to participate in her care Medications: New simethicone 125 mg PO BID-QID PRN 120 caps 3RF abdominal distention K21.9 - Gastro-esophageal reflux disease without esophagitis Coding Level of Care Code Est Pt Level 3 (10989) Diagnoses Gastroesophageal reflux disease, unspecified whether esophagitis present K21.9 Esophagitis presence: esophagitis presence not specified History of Ellsworth's esophagus Z87.19 Postprandial abdominal bloating R14.0 Time Spent (min) 30 Comment 20 minutes spent with patient and additional 10 minutes spent reviewing her records
--- OUTSIDE RECORDS SUMMARY | 2024-10-18 09:54 | XMS_ITS | Clinical Summary ---
Author Organization [employer] Address [address] [place] [address] Care Team Providers Care Screw Remover Name Role Phone Unavailable Primary Care Provider [...] patient's age to complete this topic Insurance [facility] [place] [id number]
[2024-10-18 09:59] VITALS: BP 134/62; PULSE 76; O2SAT 99; BMI 27.1
== END 2024-10-18 10:27 | disposition home or self-care (01) ==
LOC: HO.HGI 09:50
PROVIDERS: PCP Nurse Practitioner Family; Visit Provider Nurse Practitioner Family
DX: K21.9 Gastro-esophageal reflux disease without esophagitis (principal); Z87.19 Personal history of other diseases of the digestive system; R14.0 Abdominal distension (gaseous)
CPT/HCPCS: 99213

== ENCOUNTER → 2024-10-18 09:50 | Outpatient (BNVA) | payer OTHER, SELFPAY | PROVIDERS: PCP Nurse Practitioner Family; Visit Provider Nurse Practitioner Family | DX: K21.9 Gastro-esophageal reflux disease without esophagitis (principal); R14.0 Abdominal distension (gaseous); Z87.19 Personal history of other diseases of the digestive system | CPT/HCPCS: 99212 ==

== ENCOUNTER 2024-11-04 10:38 | Outpatient (REF) | payer OTHER, SELFPAY ==
[2024-11-04 14:20] LABS: Hematocrit 31.6 % (37.0-47.0); Hemoglobin 10.1 g/dl (12.0-16.0); Mean Corpuscular HGB Conc 32.0 g/dl (31.0-35.0); Mean Corpuscular Hemoglobin 28.5 pg (27.0-33.0); Mean Corpuscular Volume 89.0 fL (80.0-98.0); NRBC Abs Auto 0.000 X10*3/uL (0.0-0.012); NRBC Pct Auto 0.0 /100WBC (0.0-0.2); Platelet Count 252 X10*3/uL (160-400); Red Blood Count 3.55 X10*6/uL (4.20-5.50); White Blood Count 6.1 X10*3/uL (4.8-10.8)
[2024-11-04 14:54] LABS: Anion Gap 13 (12-20); Blood Urea Nitrogen 33 mg/dL (9-16); Calcium 9.8 mg/dL (8.4-10.2); Carbon Dioxide 21 mmol/L (22-29); Chloride 112 mmol/L (96-108); Estimated Glomerular Filt Rate 53; Magnesium 1.7 mg/dL (1.6-2.6); Potassium 4.8 mmol/L (3.3-5.1); Sodium 141 mmol/L (135-145)
[2024-11-04 15:05] LABS: Folate 13.4 ng/mL (> or = 4.0); Vitamin B12 472 pg/mL (200-900)
== END 2024-11-04 10:39 | disposition home or self-care (01) ==
LOC: HO.WFDLDS 10:38
PROVIDERS: PCP Nurse Practitioner Family; Visit Provider Nurse Practitioner Family
DX: R20.0 Anesthesia of skin (principal); I10 Essential (primary) hypertension; Z79.4 Long term (current) use of insulin; Z79.890 Hormone replacement therapy; Z79.899 Other long term (current) drug therapy
CPT/HCPCS: 36415; 80048; 82306; 82607; 82746; 83735; 85027; 99212

== ENCOUNTER 2024-11-04 10:38 | Outpatient (AMB) | payer OTHER, SELFPAY ==
--- NOTE | 2024-11-04 10:42 | A.OFFPC_ITS ---
Vital Signs 11/04/24 10:47 11/04/24 10:59 Height 5 ft 1 in Weight 144 lb 2 oz BMI 27.2 BP 116/56 L 116/60 Blood Pressure Location Lt brachial Lt brachial Position Sitting Sitting Respiration 16 Pulse 72 Pulse Source Pulse Oximeter Temp 98.4 F Temp Source Oral Pulse Oximetry (%) 100 Oxygen Delivery Method Room Air Intake Visit Reasons: 1 mos HTN Intake Note: patient here for 1 month follow up for HTN Automotive Parts Counter Associate Required: Yes Automotive Parts Counter Associate Language: Clinical Research Specialist Name: luz Eduardo Information Interpreted: non-clinical & clinical Accompanied by: Daughter Is last menstrual period known: No Post menopausal: No Patient : No Allergies No Known Allergies Allergy (Verified 11/04/24 10:51) Medication List - Last Reconciled 11/04/24 by Libby Zhao CNP amlodipine 5 mg PO DAILY 30 days blood sugar diagnostic ([employer] Ultra Test strips) POC testing TID blood-glucose meter ([employer]Touch Ultra2 Meter) POC testing TID cetirizine 10 mg PO DAILY cholecalciferol (vitamin D3) 50 mcg PO DAILY glipizide ER 2.5 mg PO DAILY 90 days lancets ([employer] Delica Plus Lancet) POC testing TID levothyroxine 25 mcg PO DAILY 90 days lisinopril 40 mg PO DAILY 90 days metformin 1,000 mg PO BID 90 days rosuvastatin 20 mg PO DAILY 90 days simethicone 125 mg PO BID-QID PRN Tobacco use date assessed: 11/04/24 Fall risk assessment: No Falls in past year Last assessed Fall Risk: 11/04/24 Dental Screening Dental Screen Date: 11/04/24 Did you have a dental visit in the last 12 months?: Yes Did you have a dental problem in the last 6 months where you did not have access to dental care?: No Was dental information given to patient?: Patient has dentist HPI HPI Comments History of Present Illness Details 69-year-old Romanian-speaking female, acc ompanied by her daughter, presents for hypertension follow-up. She admits to taking her medications as prescribed without adverse reactions. She admits to making healthy lifestyle choices, including low-sodium diet. Reports intermittent numbness to her hands for the past 3 months. Interpretation by a professional arch support technician via video. [facility] Medical History FH: breast cancer in first degree relative History of Ellsworth's esophagus Diabetes Arthritis Arteriosclerosis Ellsworth esophagus Acid reflux Thyroid disease High blood pressure Surgical History Hx of section History of appendectomy Hx of colonoscopy History of esophagogastroduodenoscopy (EGD) H/O cataract removal with insertion of prosthetic lens Family History Mother Diabetes Father Asthma Family/Other Diabetes Thyroid disease Sister History of breast cancer, Onset Age: 56 Social History Housing: Apartment Alcohol intake: never Patient Tobacco Use Status: Former Tobacco user e-Cigarette/Vaping Use: Never Used Second Hand Smoke Exposure: No service: No Current occupational status: unemployed Cognitive needs: No Hearing needs: No Vision needs: No Questionnaire Thrive Questionnaire Date Thrive assessed: 04/22/24 I am a: Patient What is your living situation today?: I have a steady place to live Within the past 12 months, did the food you bought not last and you didn't have the money to get more?: Never true Within the past 12 months, did you worry whether your food would run out before you got money to buy more?: Never true Do you have trouble paying for medicines?: No Do you have trouble getting transportation to medical appointments?: No Do you have trouble paying your heating and electricity bill?: No Do you have trouble taking care of your child, family member or friend?: No Do you have trouble with day-to-day activities such as bathing, preparing meals, shopping, managing finances, etc.?: No Are you currently unemployed and looking for a job?: Yes Are you interested in more education?: No Please select the resources that you would like help with: None Currently or been in a relationship where the following occur: No concerns reported THRIVE Score: 0 SANTANA-7 AMB Questionnaire SANTANA-7 Date SANTANA - 7 assessed: 01/24/24 Source: Developed by Drs. Dean Rojo, Conchita Coleman, Tyrone Colin and colleagues, with an educational colt from [employer] Review of Systems Const Details: Const Denies chills, Denies fatigue, Denies fever(s), Denies headache(s) and Denies weakness ENT Denies dizziness and Denies headache(s) Card Denies chest pain, Denies lightheadedness, Denies dyspnea and Denies other (Palpitations) Resp Denies cough, Denies dyspnea, Denies wheezing and Denies other ( shortness of breath) GI Denies abdominal pain, Denies melena, Denies hematochezia, Denies change in bowel habits, Denies dyspepsia and Denies nausea Denies hematuria and Denies dysuria Musc Reports numbness, Denies abnormal gait, Denies myalgias, Denies arthralgias, and Denies tingling Skin/Breast Denies rash, Denies unusual bruising and Denies wounds Neuro Reports numbness, Denies abnormal gait, Denies dizziness, Denies headache(s), Denies memory loss, Denies Sensory deficit (Neuro), Denies tingling and Denies weakness Psych Denies anxiety, Denies depression, Denies memory loss Endo Denies cold intolerance, Denies fatigue, Denies heat intolerance, Denies polydipsia and Denies polyuria Aller/Immun Denies wheezing Physical exam (Primary Care) Vital Signs: Last Vital Signs Temp 98.4 F 11/04/24 10:47 Pulse 72 11/04/24 10:47 Resp 16 11/04/24 10:47 BP 116/60 11/04/24 10:59 Pulse Ox 100 11/04/24 10:47 Oxygen Delivery Method Room Air 11/04/24 10:47 BMI result Body Mass Index 27.2 Tobacco/Smoking Status: Tobacco use Status Tobacco use date assessed 11/04/24 11/04/24 10:50 Patient Tobacco Use Status Former Tobacco user 11/04/24 10:44 e-Cigarette/Vaping Use Never Used 11/04/24 10:44 Thrive Assessment: Date of Thrive Assessment Date Thrive assessed 04/22/24 11/04/24 10:44 Currently or been in a relationship where the following occur: No concerns reported Const Other: General: no acute distress and well developed Nutritional Appearance: well nourished Orientation/consciousness: patient oriented x3 HENMT Head: Yes normocephalic and Yes atraumatic Eyes General: appearance normal, both eyes and all related structures Pupils: Equal, round and reactive pupils present EOM: EOMs intact bilaterally Resp Effort & Inspection: normal respiratory effort Auscultation: clear to auscultation bilaterally Cardio Rate: regular rate Rhythm: regular rhythm Heart sounds: S1 normal heart sound present, S2 normal heart sound present, no gallops, no murmurs and no rubs GI Palpation (GI): No Abdominal aortic bruit present, Soft to palpation, nontender, No hepatosplenomegaly present and No Rebound tenderness present Auscultation: normal bowel sounds General: Yes no CVA tenderness Back/Spine/Pelvis Back: no CVA tenderness Cervical Spine: cervical ROM normal and No Cervical spine tenderness Thoracic/Lumbar Spine: thoraco-lumbar ROM normal, No pain with thoraco-lumbar ROM, No thoracic spinal tenderness and No lumbar spinal tenderness Extrem General: Yes normal to inspection, No edema and No calf tenderness Skin General: warm and dry. Normal skin color. Normal skin turgor Neuro General: patient oriented x3, gait normal and no focal neuro deficit Cranial nerves: Yes Equal, round and reactive pupils present Cognition (Neuro): normal cognition Gait exam (Neuro): Normal gait present Sensory Exam: No Sensory deficit (Neuro) Psych Appearance: grossly normal Affect: normal affect Attitude: cooperative Thought process: Normal thought process present Coding Level of Care Code Est Pt Level 4 (64777) Diagnoses Essential hypertension I10 Numbness in both hands R20.0 Assessment & Plan Assessment & Plan (1) Essential hypertension: Code(s): I10 - Essential (primary) hypertension Category: Medical Plan: Resting blood pressure is 116/60, within goal of less than 130/80. Continue current treatment regimen. Low-sodium diet encouraged. Follow-up in 2 months for hypertension and diabetes or sooner with symptoms or concerns. Verbalized understanding and agreed with the plan. (2) Numbness in both hands: Code(s): R20.0 - Anesthesia of skin Category: Medical Plan: Reports intermittent numbness to her hands for the past 3 months. 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 Will trial Gabapentin 100 mg at bedtime; advised to take as prescribed. Instructed on the risks, benefits, and potential adverse reactions of the medication. Will check CBC, CMP, magnesium, B12, folate, and vitamin D levels. Follow-up as needed. Verbalized understanding and agreed with the plan. Orders: Orders Vitamin D 25-OH Total Today R20.0 - Anesthesia of skin Vitamin B12 and Folate Today R20.0 - Anesthesia of skin Basic Metabolic Panel Today R20.0 - Anesthesia of skin Magnesium Today R20.0 - Anesthesia of skin Complete Blood Count no Diff Today R20.0 - Anesthesia of skin Medications: New gabapentin 100 mg PO BEDTIME 30 caps 3RF 30 days
[2024-11-04 10:47] VITALS: BP 116/56; PULSE 72; RESP 16; TEMP 36.9; O2SAT 100; BMI 27.2
[2024-11-04 10:59] VITALS: BP 116/60
--- OUTSIDE RECORDS SUMMARY | 2024-11-04 11:52 | XMS_ITS | Clinical Summary ---
Author Organization [employer] Address [address] [place] [address] Care Team Providers Care Pizzamaker Name Role Phone Unavailable Primary Care Provider [...] patient's age to complete this topic Insurance [facility] [place] [id number]
== END 2024-11-04 11:14 | disposition home or self-care (01) ==
LOC: HO.HMCFM 10:40
PROVIDERS: PCP Nurse Practitioner Family; Visit Provider Nurse Practitioner Family
DX: I10 Essential (primary) hypertension (principal); R20.0 Anesthesia of skin

== ENCOUNTER 2025-01-06 09:49 | Outpatient (AMB) | payer OTHER, SELFPAY ==
--- NOTE | 2025-01-06 09:58 | A.OFFPC_ITS ---
Vital Signs 01/06/25 10:10 Height 5 ft 1 in Weight 146 lb BMI 27.6 BP 136/62 Blood Pressure Location Lt brachial Position Sitting Respiration 12 Pulse 78 Pulse Source Pulse Oximeter Temp 97.8 F Temp Source Oral Pulse Oximetry (%) 100 Oxygen Delivery Method Room Air Intake Visit Reasons: 2 mos HTN, DM Intake Note: 2 month f/u for HTN, DM Long Term Care Pharmacist Required: Yes Long Term Care Pharmacist Language: Street And Building Decorator Name: Rashaad Vyas [id number] Information Interpreted: non-clinical & clinical Accompanied by: Daughter Is last menstrual period known: No Post menopausal: No Patient : No Allergies No Known Allergies Allergy (Verified 01/06/25 10:20) Medication List - Last Reconciled 01/06/25 by Libby Zhao CNP amlodipine 5 mg PO DAILY 30 days blood sugar diagnostic ([employer] Ultra Test strips) POC testing TID blood-glucose meter ([employer] Ultra2 Meter) POC testing TID cetirizine 10 mg PO DAILY cholecalciferol (vitamin D3) 50 mcg PO DAILY glipizide ER 2.5 mg PO DAILY 90 days lancets ([employer] Delica Plus Lancet) POC testing TID levothyroxine 25 mcg PO DAILY 90 days lisinopril 40 mg PO DAILY 90 days metformin 1,000 mg PO BID 90 days simethicone 125 mg PO BID-QID PRN Tobacco use date assessed: 01/06/25 Fall risk assessment: No Falls in past year Last assessed Fall Risk: 01/06/25 Dental Screening Dental Screen Date: 01/06/25 Did you have a dental visit in the last 12 months?: Yes Did you have a dental problem in the last 6 months where you did not have access to dental care?: No Was dental information given to patient?: Patient has dentist HPI HPI Comments History of Present Illness Details 69-year-old Irish-speaking female, acc ompanied by her daughter, presents for hypertension and diabetes follow-up. She admits to taking her medications as prescribed without adverse reactions. She admits to making healthy lifestyle choices, including low-sodium diet. Interpretation by a professional japanese interpreter via video. No acute symptoms at this time. [facility] Medical History FH: breast cancer in first degree relative History of Ellsworth's esophagus Diabetes Arthritis Arteriosclerosis Ellsworth esophagus Acid reflux Thyroid disease High blood pressure Surgical History Hx of section History of appendectomy Hx of colonoscopy History of esophagogastroduodenoscopy (EGD) H/O cataract removal with insertion of prosthetic lens Family History Mother Diabetes Father Asthma Family/Other Diabetes Thyroid disease Sister History of breast cancer, Onset Age: 56 Social History Housing: Apartment Alcohol intake: never Patient Tobacco Use Status: Former Tobacco user e-Cigarette/Vaping Use: Never Used Second Hand Smoke Exposure: No service: No Current occupational status: unemployed Cognitive needs: No Hearing needs: No Vision needs: No Questionnaire Thrive Questionnaire Date Thrive assessed: 04/22/24 I am a: Patient What is your living situation today?: I have a steady place to live Within the past 12 months, did the food you bought not last and you didn't have the money to get more?: Never true Within the past 12 months, did you worry whether your food would run out before you got money to buy more?: Never true Do you have trouble paying for medicines?: No Do you have trouble getting transportation to medical appointments?: No Do you have trouble paying your heating and electricity bill?: No Do you have trouble taking care of your child, family member or friend?: No Do you have trouble with day-to-day activities such as bathing, preparing meals, shopping, managing finances, etc.?: No Are you currently unemployed and looking for a job?: Yes Are you interested in more education?: No Please select the resources that you would like help with: None Currently or been in a relationship where the following occur: No concerns reported THRIVE Score: 0 SANTANA-7 AMB Questionnaire SANTANA-7 Date SANTANA - 7 assessed: 01/24/24 Source: Developed by Drs. Dean Rojo, Conchita Coleman, Tyrone Colin and colleagues, with an educational colt from [employer]. Review of Systems Const Details: Const Denies chills, Denies fatigue, Denies fever(s), Denies headache(s) and Denies weakness ENT Denies dizziness and Denies headache(s) Card Denies chest pain, Denies lightheadedness, Denies dyspnea and Denies other (Palpitations) Resp Denies cough, Denies dyspnea, Denies wheezing and Denies other ( shortness of breath) GI Denies abdominal pain, Denies melena, Denies hematochezia, Denies change in bowel habits, Denies dyspepsia and Denies nausea Denies hematuria and Denies dysuria Musc Denies abnormal gait, Denies myalgias, Denies arthralgias, Denies numbness and Denies tingling Skin/Breast Denies rash, Denies unusual bruising and Denies wounds Neuro Denies abnormal gait, Denies dizziness, Denies headache(s), Denies memory loss, Denies numbness, Denies Sensory deficit (Neuro), Denies tingling and Denies weakness Psych Denies anxiety, Denies depression, Denies memory loss Endo Denies cold intolerance, Denies fatigue, Denies heat intolerance, Denies polydipsia and Denies polyuria Aller/Immun Denies wheezing Physical exam (Primary Care) Tobacco/Smoking Status: Tobacco use Status Tobacco use date assessed 11/04/24 11/04/24 10:50 Patient Tobacco Use Status Former Tobacco user 11/04/24 10:44 e-Cigarette/Vaping Use Never Used 11/04/24 10:44 Thrive Assessment: Date of Thrive Assessment Date Thrive assessed 04/22/24 11/04/24 10:44 Currently or been in a relationship where the following occur: No concerns reported Const Other: General: no acute distress and well developed Nutritional Appearance: well nourished Orientation/consciousness: patient oriented x3 HENMT Head: Yes normocephalic and Yes atraumatic Eyes General: appearance normal, both eyes and all related structures Pupils: Equal, round and reactive pupils present EOM: EOMs intact bilaterally Resp Effort & Inspection: normal respiratory effort Auscultation: clear to auscultation bilaterally Cardio Rate: regular rate Rhythm: regular rhythm Heart sounds: S1 normal heart sound present, S2 normal heart sound present, no gallops, no murmurs and no rubs GI Palpation (GI): No Abdominal aortic bruit present, Soft to palpation, nontender, No hepatosplenomegaly present and No Rebound tenderness present Auscultation: normal bowel sounds General: Yes no CVA tenderness Back/Spine/Pelvis Back: no CVA tenderness Cervical Spine: cervical ROM normal and No Cervical spine tenderness Thoracic/Lumbar Spine: thoraco-lumbar ROM normal, No pain with thoraco-lumbar ROM, No thoracic spinal tenderness and No lumbar spinal tenderness Extrem General: Yes normal to inspection, No edema and No calf tenderness Skin General: warm and dry. Normal skin color. Normal skin turgor Neuro General: patient oriented x3, gait normal and no focal neuro deficit Cranial nerves: Yes Equal, round and reactive pupils present Cognition (Neuro): normal cognition Gait exam (Neuro): Normal gait present Sensory Exam: No Sensory deficit (Neuro) Psych Appearance: grossly normal Affect: normal affect Attitude: cooperative Thought process: Normal thought process present Coding Level of Care Code Est Pt Level 3 (70652) Diagnoses Essential hypertension I10 Diabetes mellitus E11.9 Laboratory tests ordered as part of a complete physical exam (CPE) Z00.00 Normocytic anemia D64.9 Assessment & Plan Assessment & Plan (1) Essential hypertension: Comment: Goal <130/80 Code(s): I10 - Essential (primary) hypertension Category: Medical Plan: Resting blood pressure is 136/62, slightly above goal of less than 130/80. Continue current treatment regimen. Low-sodium diet encouraged. Perform fasting lab work before next visit. Follow-up in 6 weeks for an extended physical exam and labs review. Return sooner with symptoms or concerns. Verbalized understanding and agreed with the plan. (2) Diabetes mellitus: Code(s): E11.9 - Type 2 diabetes mellitus without complications Category: Medical Plan: A1c today 6.1%, within goal of less than 7.0%. Previous A1c was 6.0%. Continue current treatment regimen. ADA diet and routine exercise encouraged. Will check A1c every 3 months. Verbalized understanding and agreed with the plan. (3) Laboratory tests ordered as part of a complete physical exam (CPE): Code(s): Z00.00 - Encounter for general adult medical examination without abnormal findings Category: Medical Plan: Fasting labs ordered as part of a complete physical exam. Advised to fast for at least 10 hours before getting labs drawn. May drink water Verbalized understanding and agreed with treatment plan. (4) Normocytic anemia: Code(s): D64.9 - Anemia, unspecified Category: Medical Plan: Recent RBC and H&H levels slightly low. Iron studies, vitamin B12, and folate levels are normal. She has history of slightly low RBC and H&H which are consistent. Likely anemia of chronic disease. Will monitor CBC annually or as needed. Verbalized understanding and agreed with the plan. Orders: Orders Lipid Panel Today Z00.00 - Encounter for general adult medical examination without abnormal findings AMB Hemoglobin A1c Today Z13.9 - Encounter for screening, unspecified Liver Panel Today Z00.00 - Encounter for general adult medical examination without abnormal findings TSH reflex Free T4 Today Z00.00 - Encounter for general adult medical examination without abnormal findings UA CC w/rflx Micro + Cult Today Z00.00 - Encounter for general adult medical examination without abnormal findings Microalbumin, Random (w Creat) Today Z00.00 - Encounter for general adult medical examination without abnormal findings
[2025-01-06 10:10] VITALS: BP 136/62; PULSE 78; RESP 12; TEMP 36.6; O2SAT 100; BMI 27.6
--- OUTSIDE RECORDS SUMMARY | 2025-01-06 11:20 | XMS_ITS | Data Portability ---
Author Organization [place] - [facility], Allergy Address [address] [address] Care Team Providers Care Sheet Heater Helper Name Role Phone NADIRA RILEY Primary Care [...] joint. Recommend she discuss obtaining a new ice guard tester with her current dentist. She can follow [...] oil 0.01 % ear drops [address] [facility]/Pharmacy #[facility], [address] [place], [address], 4 11:17:25 Patient TargetsNo targets recorded. Patient InstructionsNo [...] Address Organization Details Recorded Time Bilateral tinnitus [id number] Active 2023 LOPEZ ALY, AUD [address] [facility],[address], [phone], [facility] - [facility] 4 10:57:15 Abnormal auditory perception 50341096 Active 2023 Maria Fernanda quiroga [place] - [facility] 4 11:16:42 Pain of right temporomand ibular joint 0636181882761 9107 Active 2023 Maria Fernanda quiroga [place] - [facility] 4 11:16:50 Itching of skin 251278614 Active 2023 Maria Fernanda quiroga [place] - [facility] 4 11:16:54 Problem Notes None recorded. Procedures Surgical History Date Name Laterality Status Provider Name and Address Organization Details Recorded Time 02/19/2024 [employer] [facility] [employer] - 43536 completed LOPEZ ALY, AUD [address] [facility],[address], [address], [facility] - [facility] 02/19/2024 10:56:49 Imaging Results None recorded. Procedure Notes None recorded. Medical Equipment None [...] Address Organization Details Last Updated DateTime 02/19/2024 73983.75 g Dayan Bahena [place] - [facility] 02/19/2024 10:48:45 Social History None recorded. Functional Status None recorded. Mental Status None recorded. Family History Nothing Reported. Medical History Condition Response Arthritis Y Hypertension Y Gynecological HistoryNo gynecological history recorded. Obstetrics History GPAL:G 0 P 0 0 0 0 Past Encounters Encounter ID Performer Location Encounter Start Date Encounter Closed Date Diagnosis/Indication Diagnosis SNOMED-CT Code Diagnosis ICD10 Code Diagnosis IMO Codes Diagnosis Note [id number] MARIA FERNANDA STOLL PA-C [facility] on [address] [place] [phone] 02/19/2024 10:04:38 02/19/2024 11:38:57 Bilateral tinnitus 8341009348 102 H93.13 Audiologic al evaluation results: 02/19/2024 Right ear: Normal hearing with excellent word recognitio n. Left ear: Normal hearing with excellent word recognitio n. Tympanomet ry: Right Ear:Type A Left Ear:Type A Abnormal a uditory perception 39244624 H93.291 Pain of ri ght temporomandibular joint 4414691155 5511370 M26.621 Itching of skin 50713683 0 L29.9 Health Concerns Section Related Observation LastModified by Organization Detai ls LastModified Time None Recorded Concern Status LastModified by Organization Details LastModified Time None Recorded Advance Directives Directive None Recorded Payers Insurance Date Sequence Insurance Name Policy Number Policy Marshall Covered Member ID Marshall Member ID Guarantor Name 02/19/2024 1 [facility] PUBLIC PLANS [facility] TYPE I (HMO) [id number] Victoriano Barnett [id number] Victoriano Barnett Notes Date Note Type Note Provider Name and Address Organization Details Recorded Time 02/19/2024 text/html ROS as noted in the HPI 69 year old female, Guatemalan speaking, presents today accompanied by her daughter [...] to the , when she lived in [facility], she had a ice guard tester, but she did not bring it with her when she moved. She does have a dentist that she sees regularly. Maria Fernanda quiroga [place] - [facility] 02/19/2024 11:17:48 OBGyn Episode No OBEpisode recorded.
--- OUTSIDE RECORDS SUMMARY | 2025-01-06 11:21 | XMS_ITS | Clinical Summary ---
Author Organization [employer] Address [address] [place] [address] Care Team Providers Care Outdoor Emergency Care Technician Name Role Phone Unavailable Primary Care [...] Vaccines (1 of 2) 02/10/2006 COVID-19 Vaccine (1 - 2023-2 5 season) 2024 Influenza Vaccine (#1) 2024 RSV Patients and [...] patient's age to complete this topic Insurance [facility] [employer] [place] [id number]
== END 2025-01-06 10:35 | disposition home or self-care (01) ==
LOC: HO.HMCFM 09:51
PROVIDERS: PCP Nurse Practitioner Family; Visit Provider Nurse Practitioner Family
DX: I10 Essential (primary) hypertension (principal); E11.9 Type 2 diabetes mellitus without complications; Z00.00 Encounter for general adult medical examination without abnormal findings; D64.9 Anemia, unspecified

== ENCOUNTER 2025-01-06 09:49 | Outpatient (REF) | payer OTHER, SELFPAY ==
--- OUTSIDE RECORDS SUMMARY | 2025-01-06 13:35 | XMS_ITS | Data Portability ---
Author Organization [place] - [facility], Allergy Address [address] [address] Care Team Providers Care Application Packaging Consultant Name Role Phone NADIRA RIELY Primary Care Provider Assessment Encounter Date Assessment [...] joint. Recommend she discuss obtaining a new driver guard with her current dentist. She can [...] oil 0.01 % ear drops 2023 024 [facility], [address] [place], [address], 4 11:17:25 Patient TargetsNo targets recorded. Patient [...] Address Organization Details Recorded Time Bilateral tinnitus [id number] Active 2023 LOPEZ ALY, AUD 100 [facility],[address], [address], [facility] - [facility] 4 10:57:15 Abnormal auditory perception 09496441 Active 2023 Maria Fernanda quiroga [place] - [facility] 4 11:16:42 Pain of right temporomand ibular joint 4536312250759 9107 Active 2023 Maria Fernanda quiroga [place] - [facility] 4 11:16:50 Itching of skin 785213625 Active 2023 Maria Fernanda quiroga [place] - [facility] 4 11:16:54 Problem Notes None recorded. Procedures Surgical History Date Name Laterality Status Provider Name and Address Organization Details Recorded Time 02/19/2024 [employer] - 07820 completed LOPEZ ALY, AUD 100 [facility],[address], [address], [facility] - [facility] 02/19/2024 10:56:49 Imaging Results None recorded. Procedure [...] Address Organization Details Last Updated DateTime 02/19/2024 66149.75 g Dayan Bahena [place] - [facility] 02/19/2024 10:48:45 Social History None recorded. Functional [...] ICD10 Code Diagnosis IMO Codes Diagnosis Note [id number] MARIA FERNANDA STOLL PA-C [facility] on [address] [place] [id number] 02/19/2024 10:04:38 02/19/2024 11:38:57 Bilateral tinnitus [id number] 102 H93.13 Audiologic al evaluation results: 02/19/2024 Right ear: Normal hearing with excellent word recognitio n. Left ear: Normal hearing with excellent word recognitio n. Tympanomet ry: Right Ear:Type A Left Ear:Type A Abnormal a uditory perception [id number] H93.291 Pain of ri ght temporomandibular joint [id number] M26.621 Itching of skin 80559028 0 L29.9 Health Concerns Section Related Observation LastModified by Organization Detai ls LastModified Time None Recorded Concern Status LastModified by Organization Details LastModified Time None Recorded Advance Directives Directive None Recorded Payers Insurance Date Sequence Insurance Name Policy Number Policy Marshall Covered Member ID Marshall Member ID Guarantor Name 02/19/2024 1 [facility] TYPE I (HMO) [id number] Victoriano Barnett [id number] Victoriano Barnett Notes Date Note Type Note Provider Name and Address Organization Details Recorded Time 02/19/2024 text/html ROS as noted in the HPI 69 year old female, Faroese speaking, presents today accompanied by her daughter [...] the , when she lived in [facility], she had a driver guard, but she did not bring it with her when she moved. She does have a dentist that she sees regularly. Maria Fernanda quiroga [place] - [facility] 02/19/2024 11:17:48 OBGyn Episode No OBEpisode recorded.
[2025-01-06 14:48] LABS: Alanine Aminotransferase 18 U/L (0-31); Albumin Level 4.4 g/dL (3.5-5.0); Alkaline Phosphatase 42 U/L (39-117); Aspartate Amino Transferase 25 U/L (5-31); Cholesterol 123 mg/dL (<200); HDL Cholesterol 49 mg/dL (>40); Total Protein 7.3 g/dL (6.5-8.0); Triglycerides 86 mg/dL (<150)
[2025-01-06 18:40] LABS: Appearance Urine Clear; Glucose Urine UA Negative (Negative); PH 5.0 (5.0-9.0); Specific Gravity - Urine 1.020 (1.005-1.025)
[2025-01-06 18:42] LABS: Microalbum/Creatinine Ratio Ur 17.2 ug/mg cr (<30)
== END 2025-01-06 09:50 | disposition home or self-care (01) ==
LOC: HO.WFDLDS 09:49
PROVIDERS: PCP Nurse Practitioner Family; Visit Provider Nurse Practitioner Family
DX: Z00.00 Encounter for general adult medical examination without abnormal findings (principal); E11.9 Type 2 diabetes mellitus without complications; I10 Essential (primary) hypertension; D64.9 Anemia, unspecified
CPT/HCPCS: 36415; 80061; 80076; 81003; 82043; 82570; 83036; 84443; 99212

== ENCOUNTER 2025-02-17 10:53 | Outpatient (AMB) | payer OTHER, SELFPAY ==
--- NOTE | 2025-02-17 10:57 | A.OFFPC_ITS ---
Vital Signs 02/17/25 11:04 Height 5 ft 1 in Weight 141 lb BMI 26.6 BP 126/63 Blood Pressure Location Lt brachial Position Sitting Respiration 16 Pulse 86 Pulse Source Pulse Oximeter Temp 98.0 F Temp Source Oral Pulse Oximetry (%) 99 Oxygen Delivery Method Room Air Intake Visit Reasons: 6 wks CPE, labs review Intake Note: patient here for 6 wks CPE and labs review Medical Administrative Specialist Required: Yes Medical Administrative Specialist Language: Mill Turner Name: pt refused w/ annie Information Interpreted: non-clinical & clinical Is last menstrual period known: No Post menopausal: No Patient : No Allergies No Known Allergies Allergy (Verified 02/17/25 11:16) Medication List - Last Reconciled 02/17/25 by Libby Zhao CNP amlodipine 5 mg PO DAILY 30 days blood sugar diagnostic ([email or web address] Ultra Test strips) POC testing TID blood-glucose meter ([email or web address] Ultra2 Meter) POC testing TID cetirizine 10 mg PO DAILY cholecalciferol (vitamin D3) 50 mcg PO DAILY glipizide ER 2.5 mg PO DAILY 90 days lancets ([email or web address] Delica Plus Lancet) POC testing TID levothyroxine 25 mcg PO DAILY 90 days lisinopril 40 mg PO DAILY 90 days metformin 1,000 mg PO BID 90 days simethicone 125 mg PO BID-QID PRN Tobacco use date assessed: 02/17/25 Fall risk assessment: No Falls in past year Last assessed Fall Risk: 02/17/25 Dental Screening Dental Screen Date: 02/17/25 Did you have a dental visit in the last 12 months?: Yes Did you have a dental problem in the last 6 months where you did not have access to dental care?: No Was dental information given to patient?: Patient has dentist HPI HPI Comments History of Present Illness Details 70-year-old Icelandic-speaking female, acc ompanied by her daughter and granddaughter, presents for an extended physical exam and review of recent lab results. Acute issue(s) - None Past Medical History - Diabetes, hypertension, hypothyroidism , GERD, and Ellsworth esophagus Social History - Former smoker, quit 17 years ago.. Glover s not vape. Does not drink alcohol. Denies recreational drug use - Has been making healthy dietary choice s. Exercises routinely. Generally sleep well Health maintenance - [facility] was in 05/11/2023 [facility] 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 [facility] Medical History FH: breast cancer in first degree relative History of Ellsworth's esophagus Diabetes Arthritis Arteriosclerosis Ellsworth esophagus Acid reflux Thyroid disease High blood pressure Surgical History Hx of section History of appendectomy Hx of colonoscopy History of esophagogastroduodenoscopy (EGD) H/O cataract removal with insertion of prosthetic lens Family History Mother Diabetes Father Asthma Family/Other Diabetes Thyroid disease Sister History of breast cancer, Onset Age: 56 Social History Housing: Apartment Alcohol intake: never Patient Tobacco Use Status: Former Tobacco user e-Cigarette/Vaping Use: Never Used Second Hand Smoke Exposure: No service: No Current occupational status: unemployed Cognitive needs: No Hearing needs: No Vision needs: No Questionnaire PHQ-9 Over the last 2 weeks, how often have you been bothered by any of the following problems? 1. Little interest or pleasure in doing things: not at all 2. Feeling down, depressed, or hopeless: not at all 3. Trouble falling or staying asleep, or sleeping too much: several days 4. Feeling tired or having little energy: not at all 5. Poor appetite or overeating: not at all 6. Feeling bad about yourself - or that you are a failure or have let yourself or your family down: not at all 7. Trouble concentrating on things, such as reading the newspaper or watching television: not at all 8. Moving or speaking so slowly that other people could have noticed. Or the opposite - being so fidgety or restless that you have been moving around a lot more than usual: not at all 9. Thoughts that you would be better off or of hurting yourself in some way: not at all Total score: 1 Depression Screening Interpretation: Negative Depression Screening Done: Yes 85018 - PHQ-9 Billing: Yes Source: Developed by Drs. Dean Rojo, Conchita Coleman, Tyrone Colin and colleagues, with an educational colt from [employer]. Thrive Questionnaire Date Thrive assessed: 04/22/24 I am a: Patient What is your living situation today?: I have a steady place to live Within the past 12 months, did the food you bought not last and you didn't have the money to get more?: Never true Within the past 12 months, did you worry whether your food would run out before you got money to buy more?: Never true Do you have trouble paying for medicines?: No Do you have trouble getting transportation to medical appointments?: No Do you have trouble paying your heating and electricity bill?: No Do you have trouble taking care of your child, family member or friend?: No Do you have trouble with day-to-day activities such as bathing, preparing meals, shopping, managing finances, etc.?: No Are you currently unemployed and looking for a job?: Yes Are you interested in more education?: No Please select the resources that you would like help with: Job search/training and None Currently or been in a relationship where the following occur: No concerns reported THRIVE Score: 0 AUDIT C Alcohol Use Questionnaire (AUDIT-C) 1. How often do you have a drink containing alcohol?: Never 3. How often do you have six or more drinks on one occasion?: Never Total Score: 0 Score Reviewed/Action Taken: Yes SANTANA-7 AMB Questionnaire SANTANA-7 Date SANTANA - 7 assessed: 02/17/25 Feeling nervous, anxious, or on edge: 0 = Not at all Not being able to stop or control worryin = Not at all Worrying too much about different things: 0 = Not at all Trouble relaxin = Not at all Being so restless that it is hard to sit still: 0 = Not at all Becoming easily annoyed or irritable: 0 = Not at all Feeling afraid as if something awful might happen: 0 = Not at all Total SANTANA-7 score (0-4 normal; 5-9 mild; 10-14 moderate; 15-21 severe): 0 Source: Developed by Drs. Dean Rojo, Conchita Coleman, Tyrone Colin and colleagues, with an educational colt from [employer]. SANTANA-7 Assessment Billing SANTANA-7 Assessment Tool: SANTANA-7 Assessment 76793 Review of Systems Const Details: Denies chills, Denies fatigue, Denies fever(s), Denies headache(s) and Denies weakness HEENT Denies change in vision, Denies dizziness, Denies headache(s), Denies hearing loss, Denies nasal congestion, Denies sinus pain, Denies sinus pressure and Denies sore throat Card Denies chest pain, Denies lightheadedness, Denies dyspnea and Denies other (palpitations) Resp Denies cough, Denies dyspnea and Denies wheezing GI Denies abdominal pain, Denies melena, Denies hematochezia, Denies change in bowel habits, Denies dyspepsia and Denies nausea Denies hematuria and Denies dysuria Musc Denies abnormal gait, Denies myalgias, Denies arthralgias, Denies numbness and Denies tingling Skin/Breast Denies rash, Denies unusual bruising and Denies wounds Neuro Denies abnormal gait, Denies dizziness, Denies headache(s), Denies memory loss, Denies numbness, Denies Sensory deficit (Neuro), Denies tingling and Denies weakness Psych Denies anxiety, Denies depression and Denies memory loss Endo Denies cold intolerance, Denies fatigue, Denies heat intolerance, Denies polydipsia and Denies polyuria Hung/Lymph Denies easy bleeding and Denies easy bruising Aller/Immun Denies wheezing Physical exam (Primary Care) Vital Signs: Last Vital Signs Temp 98.0 F 02/17/25 11:04 Pulse 86 02/17/25 11:04 Resp 16 02/17/25 11:04 BP 126/63 02/17/25 11:04 Pulse Ox 99 02/17/25 11:04 Oxygen Delivery Method Room Air 02/17/25 11:04 BMI result Body Mass Index 26.6 Tobacco/Smoking Status: Tobacco use Status Tobacco use date assessed 02/17/25 02/17/25 11:10 Patient Tobacco Use Status Former Tobacco user 02/17/25 10:58 e-Cigarette/Vaping Use Never Used 02/17/25 10:58 PHQ-9: PHQ-9 Score PHQ-9: Total score 1 02/17/25 11:17 Depression Screening Interpretation: Negative Thrive Assessment: Date of Thrive Assessment Date Thrive assessed 04/22/24 02/17/25 10:58 Currently or been in a relationship where the following occur: No concerns reported Const Other: General: no acute distress, well developed, alert and awake Nutritional Appearance: well nourished Orientation/consciousness: patient oriented x3 HENMT Head: Yes normocephalic and Yes atraumatic Ears: hearing grossly normal bilaterally and TM's normal bilaterally General nose exam: Normal external nose present and Normal nares present Mouth: Normal oral and palatal mucosa present and moist mucous membranes Teeth and gingiva: dentition normal Throat: Yes oropharynx normal Eyes Pupils: Equal, round and reactive pupils present and Pupil accommodation reflex normal EOM: EOMs intact bilaterally Neck Neck: Yes normal visual inspection, Yes no lymphadenopathy and Yes trachea midline Thyroid: Thyroid normal Carotids: no bruits Lymphatic: no lymphadenopathy noted Chest Chest palpation & inspection: normal inspection of the chest Resp Effort & Inspection: normal respiratory effort Auscultation: clear to auscultation bilaterally Cardio Rate: regular rate Rhythm: regular rhythm Heart sounds: S1 normal heart sound present, S2 normal heart sound present, no gallops, no murmurs and no rubs Bruits: no abdominal aortic bruits and no carotid bruits GI Palpation (GI): No Abdominal aortic bruit present, Soft to palpation, nontender, No hepatosplenomegaly present and No Rebound tenderness present Auscultation: normal bowel sounds General: Yes no CVA tenderness Back/Spine/Pelvis Back: no CVA tenderness Cervical Spine: cervical ROM normal and No Cervical spine tenderness Thoracic/Lumbar Spine: thoraco-lumbar ROM normal, No pain with thoraco-lumbar ROM, No thoracic spinal tenderness and No lumbar spinal tenderness Skin General: warm and dry. Normal skin color. Normal skin turgor Lesions: no lesions Rashes: no rashes Trauma: no lacerations or abrasions Wounds: no wounds Nails: normal Neuro General: patient oriented x3, gait normal and CN's II-XI intact bilaterally Cranial nerves: Yes Equal, round and reactive pupils present Cognition (Neuro): normal cognition Gait exam (Neuro): Normal gait present Motor exam (neuro): 5/5 motor strength present throughout Sensory Exam: No Sensory deficit (Neuro) Deep tendon reflexes (DTR's): Right patellar reflex intensity grade: 2+ and Left patellar reflex intensity grade: 2+ Extrem General: Yes normal to inspection, No edema and No calf tenderness Psych Appearance: grossly normal Affect: normal affect Attitude: cooperative Thought process: Normal thought process present Coding Level of Care Code Est Pt Prev Care >65y(74153) Diagnoses Normal physical examination, routine Z00.00 Essential hypertension I10 Additional Codes SANTANA-7 Assessment Billing - SANTANA-7 Assessment Tool: SANTANA-7 Assessment 03378 ([id number]) PHQ-9 - 76128 - PHQ-9 Billing: Yes ([id number]) Assessment & Plan Assessment & Plan (1) Normal physical examination, routine: Code(s): Z00.00 - Encounter for general adult medical examination without abnormal findings Category: Medical Plan: No significant functional limitations noted. Continue current treatment regimen. Healthy diet and routine exercise encouraged. Follow-up in 2 months for transfer of care with a new provider within the practice. Return sooner with symptoms or concerns. Verbalized understanding and agreed with the plan. (2) Essential hypertension: Comment: Goal <130/80 Code(s): I10 - Essential (primary) hypertension Category: Medical Plan: Blood pressure is 126/63, within goal of less than 130/80. Continue current treatment regimen. Low-sodium diet encouraged. Follow-up as planned. Verbalized understanding and agreed with the plan. Orders: Orders AMB Hemoglobin A1c Today Z13.9 - Encounter for screening, unspecified
[2025-02-17 11:04] VITALS: BP 126/63; PULSE 86; RESP 16; TEMP 36.7; O2SAT 99; BMI 26.6
== END 2025-02-17 11:44 | disposition home or self-care (01) ==
LOC: HO.HMCFM 10:54
PROVIDERS: PCP Nurse Practitioner Family; Visit Provider Nurse Practitioner Family
DX: Z00.00 Encounter for general adult medical examination without abnormal findings (principal); I10 Essential (primary) hypertension

== ENCOUNTER → 2025-02-17 10:53 | Outpatient (BNVA) | payer OTHER, SELFPAY | PROVIDERS: PCP Nurse Practitioner Family; Visit Provider Nurse Practitioner Family | DX: Z00.00 Encounter for general adult medical examination without abnormal findings (principal); I10 Essential (primary) hypertension | CPT/HCPCS: 96127; 99397 ==